=== PATIENT | female | born 1930 | race Caucasian/White ===

== ENCOUNTER 2017-10-09 11:02 | Inpatient (IN) | payer MEDICARE, BC ==
[~2017-10-09] VITALS: Ht 152.4 cm; Wt 53.1 kg
[~2017-10-09 11:02] MED LIST: ACET-2154 PO; VALS80TA2 PO
[2017-10-09] MEDS ORDERED: IV NORMAL SALINE 1000 ML BAG IV ONE (11:15)
[2017-10-09 11:28] LABS: BASOPHILS % (AUTO) 0.3 % (0.0-2.0); EOSINOPHILS % (AUTO) 0.6 % (0.0-7.0); HEMATOCRIT 39.1 % (37-47); HEMOGLOBIN 12.5 G/DL (12.0-16.0); LYMPHOCYTES # (AUTO) 1.2 K/UL (0.8-4.8); LYMPHOCYTES % (AUTO) 27.6 % (20.5-51.5); MEAN CORPUSCULAR HEMOGLOBIN 28.5 UUG (27.0-31.0); MEAN CORPUSCULAR HGB CONC 32 g/dL (32.0-37.0); MEAN CORPUSCULAR VOLUME 89.3 FL (81.0-99.0); MONOCYTES # (AUTO) 0.3 K/UL (0.1-1.30); MONOCYTES % (AUTO) 7.7 % (0.0-11.0); NEUTROPHILS # (AUTO) 2.9 K/UL (1.8-8.9); NEUTROPHILS % (AUTO) 63.8 % (38.5-71.5); PLATELET COUNT (AUTO) 244 K/UL (150-450); RED BLOOD CELL COUNT(AUTO) 4.38 MIL/UL (4.2-5.4); WHITE BLOOD COUNT (AUTO) 4.4 K/UL (4.0-11.2)
--- NOTE | 2017-10-09 11:37 | NUR ---
PT IS IN ROOM #2B. DR LEHMAN EVALUATED THE PT.
[2017-10-09 11:38] LABS: CARBON DIOXIDE 29 mmol/L (21-32); CHLORIDE 97 mmol/L (98-107); CREATININE 1.2 mg/dL (0.6-1.3); GLUCOSE 133 mg/dL (74-106); POTASSIUM 4.1 mmol/L (3.5-5.1); UREA NITROGEN, BLOOD 22 mg/dL (7-18)
[2017-10-09 11:55] LABS: ALANINE AMINOTRANSFERASE 21 U/L (14-59); ALKALINE PHOSPHATASE 77 U/L (50-136); ASPARTATE AMINOTRANSFERASE 28 U/L (15-37); BILIRUBIN,DIRECT 0.2 mg/dL (0.0-0.2); BILIRUBIN,TOTAL 0.6 mg/dL (0.2-1.0); TOTAL PROTEIN, SERUM 6.7 g/dL (6.4-8.2)
--- NOTE | 2017-10-09 11:59 | NUR ---
PT UNABLE TO ACCURATELY REMEMBER MEDS AND DOSAGES AT THE PRESENT TIME.
[2017-10-09] MEDS ORDERED: ONDANSETRON 4 MG/2 ML VIAL IV ONE ×2 (12:45→15:15)
[2017-10-09] MEDS ORDERED: MORPHINE SULFATE 2 MG/1 ML DISP.SYRIN IV ONE (12:45)
[2017-10-09] MEDS ORDERED: ONDANSETRON 4 MG/2 ML VIAL ONE ×2 (13:29→15:48)
[2017-10-09] MEDS ORDERED: MORPHINE SULFATE 4 MG/1 ML DISP.SYRIN ONE (13:30)
[2017-10-09] MEDS ORDERED: MORPHINE SULFATE 4 MG/1 ML DISP.SYRIN IV ONE (14:15)
[2017-10-09] MEDS ORDERED: MORPHINE SULFATE 10 MG/1 ML DISP.SYRIN ONE (15:06)
[2017-10-09 15:26] LABS: *BILIRUBIN,URIN NEGATIVE (NEGATIVE); *BLOOD, URINE 1+ (NEGATIVE); *CLARITY,URINE CLOUDY (CLEAR); *COLOR,URINE YELLOW (YELLOW); *KETONES,URINE NEGATIVE (NEGATIVE); *PROTEIN,URINE NEGATIVE (NEGATIVE); *UROBILINOGEN,URINE 0.2 E.U./dl (NORMAL); LEUKOCYTE ESTERASE ,URINE 2+ (NEGATIVE); NITRITE, URINE POSITIVE (NEGATIVE); UGLUCOSE NEGATIVE (NEGATIVE)
--- NOTE | 2017-10-09 15:40 | NUR ---
dr. ding at bedside.
[2017-10-09 15:49] LABS: BACTERIA,URINE MANY /HPF (NONE SEEN); SQUAMOUS EPITHELIAL CELL,UR FEW /HPF (NONE SEEN); URINE AMORPHOUS PHOSPHATES MODERATE /HPF
--- NOTE | 2017-10-09 16:30 | NUR ---
PT WAS EVALUATED BY DR LEHMAN. REPORT WAS GIVEN TO LOG FEEDER. PT WAS TRANSFERED TO TELEMETRY ROOM.
[2017-10-09] MEDS ORDERED: IV NS 1000 ML 1,000 ML IV PRN (16:33)
[2017-10-09] MEDS ORDERED: ONDANSETRON 4 MG/2 ML VIAL IV PRN (16:45)
[2017-10-09] MEDS ORDERED: HYDROCODONE/APAP 5-325MG TABLET PO PRN (16:45)
[2017-10-09] MEDS ORDERED: ACETAMINOPHEN 325 MG TABLET PO PRN (16:45)
[2017-10-09] MEDS ORDERED: MAGNESIUM HYDROXIDE 30 ML LIQUID UDC PO PRN (16:45)
[2017-10-09] MEDS ORDERED: ZOLPIDEM 5 MG TABLET PO PRN (16:45)
--- NOTE | 2017-10-09 17:45 | NUR ---
RECEIVED FOR ADMISSION 87 YEARS OLD FEMALE FROM ED WITH DX OF SYNCOPE PLACED INTO BED FIXED AND MADE COMFORTABLE PATIENT IS ALERT AND OROIENTED DENIES PAIN OR DISCOMFORTS AT THIS TIME SHE IS ON ROOM AIR WITH NO SHORTNESS OF BREATH AT THIS TIME.DR CENTENO AWARE THAT THE PATIENT IS HERE AWAITING FOR ORDERS
[2017-10-09] MEDS: CEFTRIAXONE 1 G in IV DEXTROSE 5% 50 ML IV SCH (17:49)
[2017-10-09 17:58] VITALS: BP 154/83
--- NOTE | 2017-10-09 18:12 | NUR ---
SITTING UP IN BED EATING DINNER INCONTINENT CARE GIVEN MADE COMFORTABLE AND WILL OBSERVE
--- NOTE | 2017-10-09 19:30 | NUR ---
RECEIVED PT IN BED, AWAKE, DTR AT BEDSIDE. DENIES PAIN AT THIS TIME. IN NO ACUTE SIGNS OF DISTRESS. SAFETY MEASURES RENDERED.
[2017-10-09 20:00] VITALS: BP 139/67
[2017-10-09] MEDS: Z GUARD REMEDY PASTE 57 GM TUBE TOP SCH (20:16)
[2017-10-10] VITALS: BP 104/55
[2017-10-10 04:00] VITALS: BP 155/62
--- NOTE | 2017-10-10 07:00 | NUR ---
SLEPT INTERMITTENTLY. IN NO ACUTE SIGNS OF DISTRESS. SAFETY MEASURES RENDERED.
[2017-10-10 07:20] LABS: ALANINE AMINOTRANSFERASE 17 U/L (14-59); ALKALINE PHOSPHATASE 55 U/L (50-136); ASPARTATE AMINOTRANSFERASE 22 U/L (15-37); BILIRUBIN,TOTAL 0.7 mg/dL (0.2-1.0); CARBON DIOXIDE 29 mmol/L (21-32); CHLORIDE 99 mmol/L (98-107); CHOLESTEROL 112 mg/dL (<200); CREATININE 1.1 mg/dL (0.6-1.3); GLUCOSE 98 mg/dL (74-106); HDL CHOLESTEROL 89 mg/dL (40-60); MAGNESIUM 1.5 mg/dL (1.8-2.4); PHOSPHOROUS 2.8 mg/dL (2.5-4.9); TRIGLYCERIDES 17 MG/DL (30-150); UREA NITROGEN, BLOOD 20 mg/dL (7-18)
--- NOTE | 2017-10-10 07:30 | NUR ---
PATIENT IS COMFORTABLE IN BED AWAKE ALERT AND ORIENTED JODY SIMPLE NEEDS KNOWN BUT REQUIRES MAX ASSIST FOR ALL ADL.PATIENT IS ON ROOM AIR WITH NO SHORTNESS OF BREATH AT THIS TIME.REMAIN ON IV ANTIBIOTICS ORDERED WITH NO ADVERSE OR ALLERGIC REACTIONS AT THIS TIME TURNED AND REPOSITIONED AND HEELS FLOATED MADE COMFORTABLE AND WILL CONTINUE TO OBSERVE.
[2017-10-10 07:34] LABS: EOSINOPHILS % (AUTO) 0.1 % (0.0-7.0); LYMPHOCYTES # (AUTO) 0.9 K/UL (0.8-4.8); LYMPHOCYTES % (AUTO) 10.4 % (20.5-51.5); MEAN CORPUSCULAR HEMOGLOBIN 30.3 UUG (27.0-31.0); MEAN CORPUSCULAR HGB CONC 35 g/dL (32.0-37.0); MEAN CORPUSCULAR VOLUME 87.8 FL (81.0-99.0); MONOCYTES # (AUTO) 0.4 K/UL (0.1-1.30); MONOCYTES % (AUTO) 4.5 % (0.0-11.0); NEUTROPHILS # (AUTO) 7.4 K/UL (1.8-8.9)
[2017-10-10 07:35] LABS: HEMATOCRIT 30.4 % (37-47); HEMOGLOBIN 10.5 G/DL (12.0-16.0); PLATELET COUNT (AUTO) 171 K/UL (150-450); RED BLOOD CELL COUNT(AUTO) 3.46 MIL/UL (4.2-5.4); WHITE BLOOD COUNT (AUTO) 8.7 K/UL (4.0-11.2)
[2017-10-10] MEDS: Z GUARD REMEDY PASTE 57 GM TUBE TOP SCH ×2 (08:19→21:00)
[2017-10-10] MEDS: VALSARTAN 80 MG TABLET PO SCH (08:20)
[2017-10-10] MEDS ORDERED: MAGNESIUM SULFATE/D5W 100 ML IV SCH (09:45)
--- NOTE | 2017-10-10 09:54 | NUR ---
PATIENT SEEN AND EXAMINED BY SHANNAN DAVIS KIDNEY TRIMMER WITH NEW ORDERS AND NOTED
[2017-10-10 10:09] LABS: IRON, SERUM 25 ug/dL (50-175)
[2017-10-10] MEDS: IV NS 1000 ML 1,000 ML IV PRN (10:27)
[2017-10-10 10:47] LABS: BAND % (MANUAL) 12 % (0-10); LYMPHOCYTES % (MANUAL) 12 % (20-40); MONOCYTES % (MANUAL) 4 % (2-10); NEUTROPHILS % (MANUAL) 62 % (42-75)
[2017-10-10 11:00] VITALS: BP_SYST 120; BP_SYST 122; BP_SYST 127; BP_DIAS 63
[2017-10-10 11:11] VITALS: BP 120/63
--- NOTE | 2017-10-10 12:43 | NUR ---
PATIENT SEEN AND EXAMINED BY DR KONG NEUROLOGIST WITH NEW ORDERS AND NOTED
--- NOTE | 2017-10-10 14:19 | NUR ---
RADIOLOGY DEPARTMENT HERE TO DO THE CT OF THE HEAD ORDERED BUT PATIENT IS UNABLE TO TOLERATE FOR HER HEAD TO BE PLACED DOWN FOR THE TEST TO BE DONE WILL INFORM THE DOCTOR.
--- NOTE | 2017-10-10 14:25 | NUR ---
CALLED DR DOUGLAS OFFICE SPOKE WITH ISSA AND INFORMED HER THAT THE CT HEAD WAS NOT DONE DUE TO THE FACT THAT PATIENT WAS UNABLE TO LAY FLAT AND SHE STATED WILL RELAY THE MESSAGE TO THE DOCTOR.
[2017-10-10 15:05] VITALS: BP 140/78
[2017-10-10] MEDS: CEFTRIAXONE 1 G in IV DEXTROSE 5% 50 ML IV SCH (17:10)
--- NOTE | 2017-10-10 18:00 | NUR ---
REMAIN ON IV ANTIBIOTICS ORDERED WITH NO ADVERSE OR ALLERGIC REACTIONS AT THIS TIME PATIENT IS RESTING WITH NO C/O AT THIS TIME
[2017-10-10 20:00] VITALS: BP 156/69
[2017-10-10] MEDS: FERROUS SULFATE 325 MG TABEC PO SCH (20:50)
--- NOTE | 2017-10-10 22:00 | NUR ---
PATIENT COMFORTABLE IN BED. NO COMPLAINT NOT IN DISTRESS. VITAL SIGNS ARE STABLE. INCONTINENT CARE DONE. CALL LIGHT WITHIN REACH.
[2017-10-11 06:18] VITALS: BP 152/76
--- NOTE | 2017-10-11 06:46 | NUR ---
patient slept good thru the night. no compliant of dizziness. SpO2 of 86% not in respiratory distress. started NC 2L SpO2 went back up to 92%. Encourage deep breathing. otherwise patient is comfortable. call light within reach.
[2017-10-11 07:28] LABS: BASOPHILS % (AUTO) 0.2 % (0.0-2.0); EOSINOPHILS % (AUTO) 0.1 % (0.0-7.0); HEMATOCRIT 29.8 % (31.2-41.9); HEMOGLOBIN 10.5 g/dL (10.9-14.3); LYMPHOCYTES # (AUTO) 0.9 K/uL (20.0-40.0); LYMPHOCYTES % (AUTO) 12.5 % (20.5-51.5); MEAN CORPUSCULAR HEMOGLOBIN 30.9 uug (24.7-32.8); MEAN CORPUSCULAR HGB CONC 35 g/dL (32.3-35.6); MEAN CORPUSCULAR VOLUME 88.1 fL (75.5-95.3); MONOCYTES # (AUTO) 0.5 K/uL (2.0-10.0); MONOCYTES % (AUTO) 6.6 % (0.0-11.0); NEUTROPHILS # (AUTO) 5.6 K/uL (1.8-8.9); NEUTROPHILS % (AUTO) 80.6 % (38.5-71.5); PLATELET COUNT (AUTO) 148 K/uL (179-408); RED BLOOD CELL COUNT(AUTO) 3.39 MIL/uL (3.63-4.92)
--- NOTE | 2017-10-11 07:45 | NUR ---
PATIENT IS AWAKE ALERT AND ORIENTED DENIES PAIN OR DISCOMFORTS AT THIS TIME.SHE IS CURRENTLY ON O2 BY NASAL CANULLA WITH NO SHORTNESS OF BREATH.WILL REMOVE AND RECHECK TO ESTABLISH NEED FOR SUPPLEMENTAL OXYGEN.REMAIN ON IVF ORDERED WITH NO S/S OF INFILTERATION ON SITE INCONTINENT CARE MADE COMFORTABLE AND WILL CONTINUE TO OBSERVE.
[2017-10-11 07:48] LABS: ALANINE AMINOTRANSFERASE 14 U/L (14-59); ALKALINE PHOSPHATASE 59 U/L (50-136); ASPARTATE AMINOTRANSFERASE 18 U/L (15-37); BILIRUBIN,TOTAL 0.5 mg/dL (0.2-1.0); CARBON DIOXIDE 26 mmol/L (21-32); CHLORIDE 100 mmol/L (98-107); CREATININE 0.9 mg/dL (0.6-1.3); GLUCOSE 91 mg/dL (74-106); MAGNESIUM 1.6 mg/dL (1.8-2.4); PHOSPHOROUS 2.2 mg/dL (2.5-4.9); POTASSIUM 3.8 mmol/L (3.5-5.1); TOTAL PROTEIN, SERUM 5.1 g/dL (6.4-8.2)
[2017-10-11] MEDS: FERROUS SULFATE 325 MG TABEC PO SCH ×2 (08:37→20:24)
[2017-10-11] MEDS: VALSARTAN 80 MG TABLET PO SCH (08:37)
[2017-10-11] MEDS: Z GUARD REMEDY PASTE 57 GM TUBE TOP SCH ×2 (08:38→20:47)
[2017-10-11 09:18] LABS: UREA NITROGEN, BLOOD 14 mg/dL (7-18)
[2017-10-11] MEDS: IV NS 1000 ML 1,000 ML IV PRN (09:39)
[2017-10-11] MEDS ORDERED: NEUTRA PHOS PACKET PO ONE (10:15)
[2017-10-11] MEDS ORDERED: MAGNESIUM SULFATE/D5W 100 ML IV SCH (10:15)
--- NOTE | 2017-10-11 10:30 | NUR ---
MAG LEVEL IS 1.6 AND PHOS IS 2.2 WITH NEW ORDERS AND NOTED.
--- NOTE | 2017-10-11 12:24 | NUR ---
BLOOD PRESSURE AT THIS TIME IS 171/89 SHANNAN BORREGO HERE AND AWARE WITH NEW ORDERS AND NOTED
[2017-10-11] MEDS: CLONIDINE HCL 0.1 MG TABLET PO PRN (12:41)
[2017-10-11 12:50] VITALS: BP 171/89
[2017-10-11] MEDS ORDERED: GUAIFENESIN/DEXTROMETHORPHAN 5 ML UDC PO PRN (15:15)
[2017-10-11 16:10] VITALS: BP 152/78
[2017-10-11] MEDS: CEFTRIAXONE 1 G in IV DEXTROSE 5% 50 ML IV SCH (17:38)
--- NOTE | 2017-10-11 17:57 | NUR ---
CURRENT BLOOD PRESSURE IS 152/78 DENIES DISCOMFRTS CHEST XRAY AND EEG WAS COMPLETED ORDERED AWATING FOR RESULTS
[2017-10-11] MEDS: Z GUARD REMEDY PASTE 57 GM TUBE TOP PRN (20:25)
[2017-10-11 20:42] VITALS: BP 149/81
--- NOTE | 2017-10-11 21:00 | NUR ---
PATIENT COMFORTABLE IN BED. ALERT AND ORIENTED X3-4 FORGETFUL AT TIMES. DRY COUGH GIVEN PRN ROBITUSSIN. VITAL SIGNS ARE STABLE. INCONTINENT CARE DONE. CALL LIGHT WITHIN REACH.
[2017-10-12 04:00] VITALS: BP 129/69
--- NOTE | 2017-10-12 06:16 | NUR ---
SLEPT GOOD THRU THE NIGHT. SPO2 87% NOT IN DISTRESS, PLACED ON NC2L O2 SATS PICKED UP TO 93%. OTHERWISE NO APPARENT PROBLEM NOTED. VSS. CALL LIGHT WITHIN REACH.
[2017-10-12 06:45] LABS: BASOPHILS % (AUTO) 0.1 % (0.0-2.0); EOSINOPHILS % (AUTO) 0.5 % (0.0-7.0); HEMATOCRIT 31.9 % (31.2-41.9); LYMPHOCYTES # (AUTO) 0.9 K/uL (20.0-40.0); MEAN CORPUSCULAR HEMOGLOBIN 30.3 uug (24.7-32.8); MEAN CORPUSCULAR HGB CONC 35 g/dL (32.3-35.6); MEAN CORPUSCULAR VOLUME 87.5 fL (75.5-95.3); MONOCYTES # (AUTO) 0.5 K/uL (2.0-10.0); MONOCYTES % (AUTO) 7.7 % (0.0-11.0); NEUTROPHILS # (AUTO) 4.6 K/uL (1.8-8.9); NEUTROPHILS % (AUTO) 76.7 % (38.5-71.5); PLATELET COUNT (AUTO) 159 K/uL (179-408); RED BLOOD CELL COUNT(AUTO) 3.64 MIL/uL (3.63-4.92)
[2017-10-12 06:50] LABS: ALANINE AMINOTRANSFERASE 13 U/L (14-59); ALKALINE PHOSPHATASE 58 U/L (50-136); ASPARTATE AMINOTRANSFERASE 19 U/L (15-37); BILIRUBIN,TOTAL 0.5 mg/dL (0.2-1.0); CARBON DIOXIDE 25 mmol/L (21-32); CHLORIDE 99 mmol/L (98-107); CREATININE 0.8 mg/dL (0.6-1.3); GLUCOSE 96 mg/dL (74-106); MAGNESIUM 1.6 mg/dL (1.8-2.4); PHOSPHOROUS 2.4 mg/dL (2.5-4.9); POTASSIUM 3.3 mmol/L (3.5-5.1); TOTAL PROTEIN, SERUM 5.4 g/dL (6.4-8.2); UREA NITROGEN, BLOOD 12 mg/dL (7-18)
--- NOTE | 2017-10-12 08:00 | NUR ---
RECEIVED PATIENT IN BED AWAKE ALERT AND ORIENTED BUT FORGETFUL STILL HAS EPISODES OF COUGH OFFERED HER SOME COUGH MEDICINES BUT SHE STATED THAT SHE DID NOT LIKE HOW IT MADE HER FEEL YESTERDAY WHEN SHE TOOK IT BUT WAS UNABLE TO ELABORATE MORE.
[2017-10-12] MEDS: VALSARTAN 80 MG TABLET PO SCH (08:23)
[2017-10-12] MEDS: FERROUS SULFATE 325 MG TABEC PO SCH ×2 (08:23→20:46)
[2017-10-12] MEDS: Z GUARD REMEDY PASTE 57 GM TUBE TOP SCH ×2 (08:25→22:29)
[2017-10-12] MEDS ORDERED: CEPHALEXIN MONOHYDRATE 500 MG CAPSULE PO SCH (09:00)
--- NOTE | 2017-10-12 09:52 | NUR ---
PATIENT SEEN AND EXAMINED BY DR MICHAEL WITH NEW ORDERS POTASSIUM IS 3.3 MG IS 1.6 AND PHOS IS 2.4 PATIENT AWARE THAT THESE LEVELS ARE LOW AND THAT SHE WILL NEED REPLACEMENTS AND SHE EXPRESSED UNDERSTANDING SHANNAN ACCOUNTING MACHINE OPERATOR AWARE THAT PATIENTS DAUGHTER TATY WANTS TO BE CALLED FOR AN UPDATE ON HER MOTHERS CONDITION.
[2017-10-12] MEDS ORDERED: MAGNESIUM SULFATE/D5W 100 ML IV SCH (10:00)
[2017-10-12] MEDS ORDERED: IPRATROPIUM BROMIDE 0.5 MG/2.5 ML NEBU NEB PRN (10:15)
[2017-10-12] MEDS ORDERED: ALBUTEROL SULFATE 2.5 MG/3 ML NEBU NEB PRN (10:15)
[2017-10-12] MEDS ORDERED: ALBUTEROL SULFATE 2.5 MG/ 0.5 ML NEBU NEB PRN (10:30)
--- NOTE | 2017-10-12 11:00 | NUR ---
SHANNAN MEDICAL RECORDS ANALYST HERE AND SEEN PATIENT WITH NEW ORDERS PATIENT IS STARTED ON IV ANTIBIOTICS PLUS THE ROCEPHINE LATER TODAY AND SHE EXPRESSED UNDERSTANDING.
[2017-10-12 11:20] VITALS: BP 144/70
[2017-10-12] MEDS: AZITHROMYCIN IV 500 MG in IV DEXTROSE 5% 250 ML IV SCH (11:39)
[2017-10-12] MEDS: POTASSIUM PHOSPHATE MM 7.5 MMOL in IV DEXTROSE 5% 100 ML IV SCH ×2 (13:05→18:52)
[2017-10-12] MEDS ORDERED: LORAZEPAM 2 MG/1 ML VIAL IV ONE ×2 (13:15→17:00)
[2017-10-12] MEDS ORDERED: ALBUTEROL SULFATE 2.5 MG/3 ML NEBU NEB SCH (13:30)
[2017-10-12] MEDS: ALBUTEROL SULFATE 2.5 MG/ 0.5 ML NEBU NEB SCH ×2 (13:47→19:30)
[2017-10-12] MEDS: IPRATROPIUM BROMIDE 0.5 MG/2.5 ML NEBU NEB SCH ×2 (13:47→19:30)
[2017-10-12] MEDS: FAMOTIDINE 20 MG TABLET PO SCH (14:30)
[2017-10-12 15:35] VITALS: BP 151/68
--- NOTE | 2017-10-12 15:57 | NUR ---
PATIENT IS FOR CT OF THE HEAD TODAY SPOKE WITH RADIOLOGY DEPARTMENT THAT PATIENT IS CURRENTLY RECEIVING POTASSIUM PHOSPHATE AND SO I WILL CALL THEM AFTER THE INFUSSION COMPLETES AND THEY CAN THEN GIVE ME THE ETA SO THAT I COULD GIVE THE ATIVAN ORDERED.
--- NOTE | 2017-10-12 17:12 | NUR ---
PATIENT PICKED UP BY BED FOR CT SCAN ORDERED SHE WAS PREMEDICATED WITH ATIVAN ORDERED.
--- NOTE | 2017-10-12 17:49 | NUR ---
PATIENT RETURNED FROM CT AWAKE LAERT TO SELF KNOWS MY NAME BUT IS DISORIENTED 1:1 REALITY ORIENTATION IS IN PROGRESS TO REDUCE CONFUSSION.MAHNAZ IVPB ATB STARTED AT THIS TIME WILL INFUSE THE SECOND BAG OF POTASSIUM PHOSPHATE AFTER THE ANTIBIOTICS PATIENTS DAUGHTER TATY IS AT THE BEDSIDE VISITING HER AT THIS TIME WILL CONTINUE TO OBSERVE.
[2017-10-12] MEDS ORDERED: CEFTRIAXONE 1 G in IV DEXTROSE 5% 50 ML IV SCH (18:00)
--- NOTE | 2017-10-12 18:29 | NUR ---
REFUSING TO EAT DINNER AT THIS TIME STILL VERY MIXED UP BED ALARM ACTIVATED AND WILL CONTINUE TO OBSERVE CLOSELY.
[2017-10-12 20:00] VITALS: BP 195/105
[2017-10-12] MEDS: CLONIDINE HCL 0.1 MG TABLET PO PRN (20:46)
[2017-10-12] MEDS: Z GUARD REMEDY PASTE 57 GM TUBE TOP PRN (20:50)
[2017-10-13] MEDS: IPRATROPIUM BROMIDE 0.5 MG/2.5 ML NEBU NEB SCH ×4 (01:34→19:10)
[2017-10-13] MEDS: ALBUTEROL SULFATE 2.5 MG/ 0.5 ML NEBU NEB SCH ×4 (01:34→19:10)
[2017-10-13 06:45] LABS: ALANINE AMINOTRANSFERASE 18 U/L (14-59); ALKALINE PHOSPHATASE 64 U/L (50-136); ASPARTATE AMINOTRANSFERASE 19 U/L (15-37); BILIRUBIN,TOTAL 0.6 mg/dL (0.2-1.0); CARBON DIOXIDE 27 mmol/L (21-32); CHLORIDE 96 mmol/L (98-107); CREATININE 0.8 mg/dL (0.6-1.3); GLUCOSE 99 mg/dL (74-106); MAGNESIUM 1.7 mg/dL (1.8-2.4); PHOSPHOROUS 3.2 mg/dL (2.5-4.9); POTASSIUM 3.5 mmol/L (3.5-5.1); TOTAL PROTEIN, SERUM 5.9 g/dL (6.4-8.2); UREA NITROGEN, BLOOD 10 mg/dL (7-18)
--- NOTE | 2017-10-13 07:15 | NUR ---
Received report from manufacturing supervisor 2nd shift nurse. Patient in bed awake, no evidence of distress noted, bed in low position, side rails up x2.
[2017-10-13 07:37] LABS: LYMPHOCYTES # (AUTO) 0.9 K/uL (20.0-40.0); MONOCYTES # (AUTO) 0.6 K/uL (2.0-10.0); MONOCYTES % (AUTO) 12.8 % (0.0-11.0); WHITE BLOOD COUNT (AUTO) 4.9 K/uL (3.8-11.8)
[2017-10-13 07:52] LABS: BASOPHILS % (AUTO) 0.3 % (0.0-2.0); EOSINOPHILS % (AUTO) 0.5 % (0.0-7.0); HEMATOCRIT 34.1 % (31.2-41.9); HEMOGLOBIN 11.8 g/dL (10.9-14.3); LYMPHOCYTES % (AUTO) 17.6 % (20.5-51.5); MEAN CORPUSCULAR HEMOGLOBIN 30.3 uug (24.7-32.8); MEAN CORPUSCULAR HGB CONC 35 g/dL (32.3-35.6); MEAN CORPUSCULAR VOLUME 87.5 fL (75.5-95.3); NEUTROPHILS # (AUTO) 3.4 K/uL (1.8-8.9); NEUTROPHILS % (AUTO) 68.8 % (38.5-71.5)
[2017-10-13 07:54] LABS: PLATELET COUNT (AUTO) 202 K/uL (179-408)
[2017-10-13] MEDS: Z GUARD REMEDY PASTE 57 GM TUBE TOP SCH ×2 (09:53→20:46)
[2017-10-13] MEDS: FAMOTIDINE 20 MG TABLET PO SCH (09:53)
[2017-10-13] MEDS: VALSARTAN 80 MG TABLET PO SCH (09:53)
[2017-10-13] MEDS: FERROUS SULFATE 325 MG TABEC PO SCH ×2 (09:53→20:44)
[2017-10-13] MEDS ORDERED: FUROSEMIDE 20 MG/2 ML VIAL IV SCH (10:15)
[2017-10-13] MEDS ORDERED: MAGNESIUM SULFATE/D5W 100 ML IV SCH (10:15)
[2017-10-13 11:14] VITALS: BP 147/73
[2017-10-13] MEDS: AZITHROMYCIN IV 500 MG in IV DEXTROSE 5% 250 ML IV SCH (11:46)
[2017-10-13 14:58] VITALS: BP 140/65
--- NOTE | 2017-10-13 15:45 | NUR ---
Patient's daughter was spoken to as patient appeared to be confused about results, and alarmed daughter.
[2017-10-13] MEDS: ASPIRIN EC 81 MG TABLET.DR PO SCH (17:12)
--- NOTE | 2017-10-13 18:14 | NUR ---
Patient in bed, awake, no evidence of distress noted at this time. Bed in low position, side rails up x2. Bed alarm on.
[2017-10-13 20:00] VITALS: BP 163/89
[2017-10-13] MEDS: LACTOBACILLUS RHAMNOSUS GG 1 EACH CAPSULE PO SCH (20:44)
[2017-10-13] MEDS: Z GUARD REMEDY PASTE 57 GM TUBE TOP PRN (20:45)
[2017-10-13] MEDS: FUROSEMIDE 20 MG/2 ML VIAL IV SCH (20:45)
[2017-10-13] MEDS: CEPHALEXIN MONOHYDRATE 500 MG CAPSULE PO SCH (21:01)
[2017-10-14] MEDS: ALBUTEROL SULFATE 2.5 MG/ 0.5 ML NEBU NEB SCH ×3 (00:51→13:30)
[2017-10-14] MEDS: IPRATROPIUM BROMIDE 0.5 MG/2.5 ML NEBU NEB SCH ×3 (00:51→13:30)
[2017-10-14 05:48] VITALS: BP 150/81
[2017-10-14] MEDS: CEPHALEXIN MONOHYDRATE 500 MG CAPSULE PO SCH ×2 (05:57→14:14)
--- NOTE | 2017-10-14 06:30 | NUR ---
PT SLEPT WELL, IN NO ACUTE DISTRESS, NO C/O OF HEADACHE, NAUSEA, CHEST PAIN, SOB. ANTIBIOTICS ADMINISTERED ORDERED, NO ADVERSE REACTION NOTED. PATIENT KEPT CLEAN/DRY. BED ALARM ON, CALL LIGHT WITHIN REACH, WILL CONTINUE TO MONITOR.
[2017-10-14 07:01] LABS: BASOPHILS % (AUTO) 0.4 % (0.0-2.0); EOSINOPHILS % (AUTO) 0.8 % (0.0-7.0); HEMATOCRIT 34.2 % (31.2-41.9); HEMOGLOBIN 11.6 g/dL (10.9-14.3); LYMPHOCYTES # (AUTO) 0.9 K/uL (20.0-40.0); LYMPHOCYTES % (AUTO) 15.2 % (20.5-51.5); MEAN CORPUSCULAR HEMOGLOBIN 29.9 uug (24.7-32.8); MEAN CORPUSCULAR HGB CONC 34 g/dL (32.3-35.6); MONOCYTES # (AUTO) 0.8 K/uL (2.0-10.0); NEUTROPHILS # (AUTO) 4.1 K/uL (1.8-8.9); NEUTROPHILS % (AUTO) 70.6 % (38.5-71.5); PLATELET COUNT (AUTO) 212 K/uL (179-408); RED BLOOD CELL COUNT(AUTO) 3.89 MIL/uL (3.63-4.92); WHITE BLOOD COUNT (AUTO) 5.9 K/uL (3.8-11.8)
--- NOTE | 2017-10-14 07:10 | NUR ---
RECEIVED REPORT FROM BRAKES INSPECTOR NURSE. PATIENT IN BED ASLEEP, NO EVIDENCE OF DISTRESS NOTED. BED IN LOW POSITION, SIDE RAILS UP X2.
[2017-10-14 07:41] LABS: ALANINE AMINOTRANSFERASE 16 U/L (14-59); ALKALINE PHOSPHATASE 58 U/L (50-136); ASPARTATE AMINOTRANSFERASE 18 U/L (15-37); BILIRUBIN,TOTAL 0.5 mg/dL (0.2-1.0); CARBON DIOXIDE 27 mmol/L (21-32); CHLORIDE 96 mmol/L (98-107); CREATININE 0.8 mg/dL (0.6-1.3); GLUCOSE 92 mg/dL (74-106); MAGNESIUM 1.6 mg/dL (1.8-2.4); PHOSPHOROUS 3.4 mg/dL (2.5-4.9); POTASSIUM 3.2 mmol/L (3.5-5.1); TOTAL PROTEIN, SERUM 5.6 g/dL (6.4-8.2); UREA NITROGEN, BLOOD 12 mg/dL (7-18)
[2017-10-14] MEDS ORDERED: VALSARTAN 80 MG TABLET PO SCH (09:00)
[2017-10-14] MEDS: FUROSEMIDE 20 MG/2 ML VIAL IV SCH (09:11)
[2017-10-14] MEDS: FERROUS SULFATE 325 MG TABEC PO SCH (09:11)
[2017-10-14] MEDS: FAMOTIDINE 20 MG TABLET PO SCH (09:12)
[2017-10-14] MEDS: Z GUARD REMEDY PASTE 57 GM TUBE TOP SCH (09:12)
[2017-10-14] MEDS: ASPIRIN EC 81 MG TABLET.DR PO SCH (09:12)
[2017-10-14] MEDS: LACTOBACILLUS RHAMNOSUS GG 1 EACH CAPSULE PO SCH (09:12)
[2017-10-14 10:57] VITALS: BP 135/70
[2017-10-14] MEDS ORDERED: MAGNESIUM SULFATE/D5W 100 ML IV SCH (11:00)
[2017-10-14] MEDS ORDERED: AZITHROMYCIN 250 MG TABLET PO SCH (11:00)
[2017-10-14] MEDS ORDERED: POTASSIUM CHLORIDE 20 MEQ TAB.PRT.SR PO ONE (11:00)
--- NOTE | 2017-10-14 12:00 | NUR ---
EVALUATED LEFT ARM INFUSION, IT WAS FOUND LEAKING. IV REPLACED TO RIGHT ARM. PATIENT TOLERATED WELL.
[2017-10-14 12:20] LABS: *OCCULT BLOOD STOOL NEGATIVE (NEGATIVE)
[2017-10-14] MEDS ORDERED: ASPI-618 PO (13:38)
[2017-10-14] MEDS ORDERED: CLON0.1T14 PO (13:38)
[2017-10-14] MEDS ORDERED: ACET325T53 PO (13:38)
[2017-10-14] MEDS ORDERED: FERR325T28 PO (13:38)
[2017-10-14] MEDS ORDERED: HYDR-3326 PO (13:38)
[2017-10-14] MEDS ORDERED: MAGN400O6 PO (13:38)
[2017-10-14] MEDS ORDERED: LACT1CAP57 PO (13:38)
[2017-10-14] MEDS ORDERED: ZOLP5TAB8 PO (13:38)
[2017-10-14] MEDS ORDERED: FAMO20TA8 PO (13:38)
[2017-10-14] MEDS ORDERED: IPRA0.2S6 NEB ×2 (13:38)
[2017-10-14] MEDS ORDERED: CEPH500C2 PO (13:38)
[2017-10-14] MEDS ORDERED: FURO20TA4 PO (13:38)
[2017-10-14] MEDS ORDERED: GUAI5SYR PO (13:38)
[2017-10-14] MEDS ORDERED: MENT71OI TOP ×2 (13:38)
[2017-10-14] MEDS ORDERED: AZIT250T6 PO (13:38)
[2017-10-14] MEDS ORDERED: ALBU2.5V13 NEB ×2 (13:38)
[2017-10-14] MEDS ORDERED: VALS80TA2 PO (13:38)
--- NOTE | 2017-10-14 15:30 | NUR ---
PATIENT DISCHARGED TO ARU, ALL EDUCATION MATERIAL PROVIDED, AND MED LIST REVIEWED. CALLED DAUGHTER TO INFORM HER OF THE UPDATED ROOM LOCATION. VITALS STABLE, NO EVIDENCE OF DISTRESS NOTED.
[2017-10-14] MEDS ORDERED: FUROSEMIDE 20 MG TABLET PO SCH (17:00)
[2017-10-15 09:00] LABS: BASOPHILS % (AUTO) 0.2 % (0.0-2.0); EOSINOPHILS % (AUTO) 0.7 % (0.0-7.0); HEMOGLOBIN 12.9 g/dL (10.9-14.3); LYMPHOCYTES # (AUTO) 0.9 K/uL (20.0-40.0); LYMPHOCYTES % (AUTO) 12.4 % (20.5-51.5); MEAN CORPUSCULAR HEMOGLOBIN 29.9 uug (24.7-32.8); MEAN CORPUSCULAR HGB CONC 34 g/dL (32.3-35.6); MEAN CORPUSCULAR VOLUME 87.9 fL (75.5-95.3); MONOCYTES # (AUTO) 0.8 K/uL (2.0-10.0); MONOCYTES % (AUTO) 11.2 % (0.0-11.0); NEUTROPHILS # (AUTO) 5.2 K/uL (1.8-8.9); NEUTROPHILS % (AUTO) 75.5 % (38.5-71.5); RED BLOOD CELL COUNT(AUTO) 4.32 MIL/uL (3.63-4.92)
[2017-10-15 09:10] LABS: CARBON DIOXIDE 27 mmol/L (21-32); CHLORIDE 92 mmol/L (98-107); GLUCOSE 96 mg/dL (74-106); PHOSPHOROUS 3.4 mg/dL (2.5-4.9); POTASSIUM 4.2 mmol/L (3.5-5.1)
[2017-10-15 09:25] LABS: UREA NITROGEN, BLOOD 19 mg/dL (7-18)
[2017-10-15 09:37] LABS: PLATELET COUNT (AUTO) 271 K/uL (179-408)
== END 2017-10-14 15:30 | DRG 193 ==
LOC: ER 11:02 → TELE 16:07 → MED 10-10 16:46 → TELE1 10-14 16:04 → MED 10-14 16:04 → TELE1 10-14 16:14 → MED 10-16 14:59 → TELE-TD 10-16 15:04 → UNDODISIN 10-16 18:07
PROVIDERS: ADMIT Physical Medicine & Rehabilitation Pain Medicine; ATTEND Internal Medicine
DX: J18.9 Pneumonia, unspecified organism (principal); N17.0 Acute kidney failure with tubular necrosis; I50.33 Acute on chronic diastolic (congestive) heart failure; E44.0 Moderate protein-calorie malnutrition; J90 Pleural effusion, not elsewhere classified; D69.6 Thrombocytopenia, unspecified; E87.2 Acidosis; E83.39 Other disorders of phosphorus metabolism; E83.42 Hypomagnesemia; I48.91 Unspecified atrial fibrillation; E87.1 Hypo-osmolality and hyponatremia; N39.0 Urinary tract infection, site not specified; I11.0 Hypertensive heart disease with heart failure; I27.20 Pulmonary hypertension, unspecified; G90.8 Other disorders of autonomic nervous system; E83.51 Hypocalcemia; D50.9 Iron deficiency anemia, unspecified; D72.825 Bandemia; E11.9 Type 2 diabetes mellitus without complications; E86.0 Dehydration; I25.10 Atherosclerotic heart disease of native coronary artery without angina pectoris; M19.90 Unspecified osteoarthritis, unspecified site; Z85.038 Personal history of other malignant neoplasm of large intestine; Z90.49 Acquired absence of other specified parts of digestive tract; Z96.643 Presence of artificial hip joint, bilateral; E87.6 Hypokalemia; I34.0 Nonrheumatic mitral (valve) insufficiency; I36.1 Nonrheumatic tricuspid (valve) insufficiency; I35.1 Nonrheumatic aortic (valve) insufficiency; I37.1 Nonrheumatic pulmonary valve insufficiency; R60.0 Localized edema; Z68.22 Body mass index [BMI] 22.0-22.9, adult
CPT/HCPCS: 36415; 70030-TC; 70450; 71010; 71250; 83550; 83605; 83735; 84100; 85025; 85730; 87040; 87086; 93005; 93307; 94640; 94664; 97116; 97530; A4663; C1758; J0456; J0696; J1940; J2060; J2270; J2405; J3475; J3490; J3590; J7030; J7050; J7060; Q0144

== ENCOUNTER 2017-10-14 16:11 | Inpatient (IN) | payer MEDICARE, BC ==
[~2017-10-14] VITALS: Ht 142.2 cm; Wt 44.5 kg
[~2017-10-14 16:11] MED LIST changes: +ACET325T53 PO; +ALBU2.5V13 NEB; +ASPI-618 PO; +AZIT250T6 PO; +CEPH500C2 PO; +CLON0.1T14 PO; +FAMO20TA8 PO; +FERR325T28 PO; +FURO20TA4 PO; +GUAI5SYR PO; +HYDR-3326 PO; +IPRA0.2S6 NEB; +LACT1CAP57 PO; +MAGN400O6 PO; +MENT71OI TOP; +ZOLP5TAB8 PO
[2017-10-14] MEDS ORDERED: Z GUARD REMEDY PASTE 57 GM TUBE TOP PRN ×2 (17:00→21:45)
[2017-10-14 19:40] VITALS: BP 166/82
[2017-10-14] MEDS ORDERED: ZOLPIDEM 5 MG TABLET PO PRN (21:45)
[2017-10-14] MEDS ORDERED: IPRATROPIUM BROMIDE 0.5 MG/2.5 ML NEBU NEB PRN (21:45)
[2017-10-14] MEDS ORDERED: GUAIFENESIN/DEXTROMETHORPHAN 5 ML UDC PO PRN (21:45)
[2017-10-14] MEDS ORDERED: CLONIDINE HCL 0.1 MG TABLET PO PRN (21:45)
[2017-10-14] MEDS ORDERED: MAGNESIUM HYDROXIDE 30 ML LIQUID UDC PO PRN (21:45)
[2017-10-14] MEDS ORDERED: ALBUTEROL SULFATE 2.5 MG/ 0.5 ML NEBU NEB PRN (21:45)
[2017-10-14] MEDS ORDERED: AZITHROMYCIN 250 MG TABLET PO SCH (21:45)
[2017-10-14] MEDS ORDERED: CEPHALEXIN MONOHYDRATE 500 MG CAPSULE ONE (23:10)
[2017-10-14] MEDS ORDERED: ZOLPIDEM 5 MG TABLET ONE (23:12)
[2017-10-14] MEDS ORDERED: ACETAMINOPHEN 325 MG TABLET ONE (23:13)
[2017-10-14] MEDS: ACETAMINOPHEN 325 MG TABLET PO PRN (23:26)
[2017-10-14] MEDS: CEPHALEXIN MONOHYDRATE 500 MG CAPSULE PO SCH (23:27)
[2017-10-15] MEDS: ALBUTEROL SULFATE 2.5 MG/ 0.5 ML NEBU NEB SCH ×4 (01:22→19:02)
[2017-10-15] MEDS: IPRATROPIUM BROMIDE 0.5 MG/2.5 ML NEBU NEB SCH ×4 (01:22→19:02)
[2017-10-15] MEDS ORDERED: CEPHALEXIN MONOHYDRATE 500 MG CAPSULE ONE (06:40)
[2017-10-15] MEDS: CEPHALEXIN MONOHYDRATE 500 MG CAPSULE PO SCH ×3 (07:06→21:52)
[2017-10-15 08:12] VITALS: BP 141/75
[2017-10-15] MEDS: Z GUARD REMEDY PASTE 57 GM TUBE TOP SCH ×2 (09:00→22:07)
[2017-10-15] MEDS: ACETAMINOPHEN 325 MG TABLET PO PRN ×2 (09:04→18:35)
[2017-10-15] MEDS: ASPIRIN EC 81 MG TABLET.DR PO SCH (09:07)
[2017-10-15] MEDS: FERROUS SULFATE 325 MG TABEC PO SCH ×2 (09:08→21:52)
[2017-10-15] MEDS: FUROSEMIDE 20 MG TABLET PO SCH ×2 (09:08→17:05)
[2017-10-15] MEDS: VALSARTAN 80 MG TABLET PO SCH ×2 (09:08→21:52)
[2017-10-15] MEDS: FAMOTIDINE 20 MG TABLET PO SCH (09:08)
[2017-10-15] MEDS: LACTOBACILLUS RHAMNOSUS GG 1 EACH CAPSULE PO SCH ×2 (09:09→21:52)
[2017-10-15 19:45] VITALS: BP_SYST 125; BP_SYST 155; BP_DIAS 65; BP_DIAS 81
[2017-10-15] MEDS: AZITHROMYCIN 250 MG TABLET PO SCH (21:51)
[2017-10-16] MEDS: IPRATROPIUM BROMIDE 0.5 MG/2.5 ML NEBU NEB SCH ×4 (01:30→19:08)
[2017-10-16] MEDS: ALBUTEROL SULFATE 2.5 MG/ 0.5 ML NEBU NEB SCH ×4 (01:30→19:08)
[2017-10-16] MEDS: CEPHALEXIN MONOHYDRATE 500 MG CAPSULE PO SCH ×3 (06:59→21:20)
[2017-10-16 07:53] VITALS: BP 128/79
[2017-10-16 08:34] LABS: CARBON DIOXIDE 26 mmol/L (21-32); CHLORIDE 97 mmol/L (98-107); CREATININE 0.9 mg/dL (0.6-1.3); GLUCOSE 89 mg/dL (74-106); POTASSIUM 4.1 mmol/L (3.5-5.1); UREA NITROGEN, BLOOD 18 mg/dL (7-18)
[2017-10-16] MEDS: ASPIRIN EC 81 MG TABLET.DR PO SCH (09:41)
[2017-10-16] MEDS: LACTOBACILLUS RHAMNOSUS GG 1 EACH CAPSULE PO SCH ×2 (09:41→21:20)
[2017-10-16] MEDS: FUROSEMIDE 20 MG TABLET PO SCH ×2 (09:42→18:29)
[2017-10-16] MEDS: FERROUS SULFATE 325 MG TABEC PO SCH ×2 (09:53→21:20)
[2017-10-16] MEDS: FAMOTIDINE 20 MG TABLET PO SCH (09:54)
[2017-10-16] MEDS: VALSARTAN 80 MG TABLET PO SCH ×2 (09:55→21:19)
[2017-10-16] MEDS: Z GUARD REMEDY PASTE 57 GM TUBE TOP SCH ×2 (09:59→21:21)
[2017-10-16] MEDS: ACETAMINOPHEN 325 MG TABLET PO PRN (13:35)
[2017-10-16 20:00] VITALS: BP 141/82
[2017-10-16] MEDS: AZITHROMYCIN 250 MG TABLET PO SCH (21:20)
[2017-10-17] MEDS: IPRATROPIUM BROMIDE 0.5 MG/2.5 ML NEBU NEB SCH ×4 (01:05→19:17)
[2017-10-17] MEDS: ALBUTEROL SULFATE 2.5 MG/ 0.5 ML NEBU NEB SCH ×4 (01:05→19:17)
[2017-10-17] MEDS: CEPHALEXIN MONOHYDRATE 500 MG CAPSULE PO SCH ×2 (06:42→17:25)
[2017-10-17 07:49] VITALS: BP 133/65
[2017-10-17] MEDS: LACTOBACILLUS RHAMNOSUS GG 1 EACH CAPSULE PO SCH ×2 (08:45→20:45)
[2017-10-17] MEDS: ASPIRIN EC 81 MG TABLET.DR PO SCH (08:45)
[2017-10-17] MEDS: FUROSEMIDE 20 MG TABLET PO SCH ×2 (08:47→17:16)
[2017-10-17] MEDS: FERROUS SULFATE 325 MG TABEC PO SCH ×2 (08:50→20:46)
[2017-10-17] MEDS: FAMOTIDINE 20 MG TABLET PO SCH (08:51)
[2017-10-17] MEDS: VALSARTAN 80 MG TABLET PO SCH ×2 (08:52→20:45)
[2017-10-17] MEDS: Z GUARD REMEDY PASTE 57 GM TUBE TOP SCH ×2 (08:52→20:46)
[2017-10-17 20:17] VITALS: BP 148/83
[2017-10-17] MEDS: AZITHROMYCIN 250 MG TABLET PO SCH (20:44)
[2017-10-18] MEDS: ALBUTEROL SULFATE 2.5 MG/ 0.5 ML NEBU NEB SCH ×4 (01:30→20:10)
[2017-10-18] MEDS: IPRATROPIUM BROMIDE 0.5 MG/2.5 ML NEBU NEB SCH ×4 (01:30→20:10)
[2017-10-18 07:30] VITALS: BP 142/77
[2017-10-18] MEDS: LACTOBACILLUS RHAMNOSUS GG 1 EACH CAPSULE PO SCH ×2 (08:59→20:44)
[2017-10-18] MEDS: FAMOTIDINE 20 MG TABLET PO SCH (09:00)
[2017-10-18] MEDS: VALSARTAN 80 MG TABLET PO SCH ×2 (09:00→20:44)
[2017-10-18] MEDS: ASPIRIN EC 81 MG TABLET.DR PO SCH (09:01)
[2017-10-18] MEDS: FERROUS SULFATE 325 MG TABEC PO SCH ×2 (09:01→20:45)
[2017-10-18] MEDS: FUROSEMIDE 20 MG TABLET PO SCH ×2 (09:02→17:29)
[2017-10-18] MEDS: Z GUARD REMEDY PASTE 57 GM TUBE TOP SCH ×2 (09:02→20:45)
[2017-10-18 16:06] VITALS: BP 118/76
[2017-10-18 19:53] VITALS: BP 139/79
[2017-10-19] MEDS: ALBUTEROL SULFATE 2.5 MG/ 0.5 ML NEBU NEB SCH ×4 (01:30→18:53)
[2017-10-19] MEDS: IPRATROPIUM BROMIDE 0.5 MG/2.5 ML NEBU NEB SCH ×4 (01:30→18:53)
[2017-10-19] MEDS: LACTOBACILLUS RHAMNOSUS GG 1 EACH CAPSULE PO SCH ×2 (08:25→20:09)
[2017-10-19] MEDS: ASPIRIN EC 81 MG TABLET.DR PO SCH (08:25)
[2017-10-19] MEDS: FUROSEMIDE 20 MG TABLET PO SCH ×2 (08:25→16:24)
[2017-10-19] MEDS: VALSARTAN 80 MG TABLET PO SCH ×2 (08:25→20:12)
[2017-10-19] MEDS: FERROUS SULFATE 325 MG TABEC PO SCH ×2 (08:25→20:09)
[2017-10-19] MEDS: FAMOTIDINE 20 MG TABLET PO SCH (08:26)
[2017-10-19] MEDS: Z GUARD REMEDY PASTE 57 GM TUBE TOP SCH ×2 (08:26→20:09)
[2017-10-19 19:45] VITALS: BP 106/53
[2017-10-20] MEDS: IPRATROPIUM BROMIDE 0.5 MG/2.5 ML NEBU NEB SCH ×4 (01:30→20:06)
[2017-10-20] MEDS: ALBUTEROL SULFATE 2.5 MG/ 0.5 ML NEBU NEB SCH ×4 (01:30→20:06)
[2017-10-20 07:25] LABS: BASOPHILS % (AUTO) 0.4 % (0.0-2.0); EOSINOPHILS # (AUTO) 0.1 K/uL (0.0-0.7); EOSINOPHILS % (AUTO) 1.5 % (0.0-7.0); HEMATOCRIT 33.6 % (37-47); HEMOGLOBIN 11.3 G/DL (12.0-16.0); LYMPHOCYTES % (AUTO) 22.3 % (20.5-51.5); MEAN CORPUSCULAR HEMOGLOBIN 30.1 UUG (27.0-31.0); MEAN CORPUSCULAR HGB CONC 34 g/dL (32.0-37.0); MEAN CORPUSCULAR VOLUME 89.1 FL (81.0-99.0); MONOCYTES # (AUTO) 0.4 K/UL (0.1-1.30); MONOCYTES % (AUTO) 9.3 % (0.0-11.0); NEUTROPHILS # (AUTO) 2.8 K/UL (1.8-8.9); NEUTROPHILS % (AUTO) 66.5 % (38.5-71.5); PLATELET COUNT (AUTO) 370 K/UL (150-450); RED BLOOD CELL COUNT(AUTO) 3.77 MIL/UL (4.2-5.4); WHITE BLOOD COUNT (AUTO) 4.3 K/UL (4.0-11.2)
[2017-10-20 07:41] LABS: ALANINE AMINOTRANSFERASE 20 U/L (14-59); ALKALINE PHOSPHATASE 64 U/L (50-136); ASPARTATE AMINOTRANSFERASE 22 U/L (15-37); BILIRUBIN,TOTAL 0.3 mg/dL (0.2-1.0); CARBON DIOXIDE 28 mmol/L (21-32); CHLORIDE 96 mmol/L (98-107); CREATININE 1.1 mg/dL (0.6-1.3); GLUCOSE 93 mg/dL (74-106); MAGNESIUM 1.8 mg/dL (1.8-2.4); PHOSPHOROUS 3.4 mg/dL (2.5-4.9); POTASSIUM 4.1 mmol/L (3.5-5.1); TOTAL PROTEIN, SERUM 5.9 g/dL (6.4-8.2); UREA NITROGEN, BLOOD 26 mg/dL (7-18)
[2017-10-20] MEDS: FAMOTIDINE 20 MG TABLET PO SCH (08:16)
[2017-10-20] MEDS: LACTOBACILLUS RHAMNOSUS GG 1 EACH CAPSULE PO SCH ×2 (08:17→20:37)
[2017-10-20] MEDS: ASPIRIN EC 81 MG TABLET.DR PO SCH (08:17)
[2017-10-20] MEDS: FERROUS SULFATE 325 MG TABEC PO SCH ×2 (08:17→20:37)
[2017-10-20] MEDS: VALSARTAN 80 MG TABLET PO SCH ×2 (08:17→20:38)
[2017-10-20] MEDS: FUROSEMIDE 20 MG TABLET PO SCH (08:17)
[2017-10-20] MEDS: Z GUARD REMEDY PASTE 57 GM TUBE TOP SCH ×2 (08:21→20:38)
[2017-10-20 08:41] VITALS: BP 134/71
[2017-10-20 20:30] VITALS: BP 139/78
[2017-10-21] MEDS: IPRATROPIUM BROMIDE 0.5 MG/2.5 ML NEBU NEB SCH ×4 (01:30→20:13)
[2017-10-21] MEDS: ALBUTEROL SULFATE 2.5 MG/ 0.5 ML NEBU NEB SCH ×4 (01:30→20:13)
[2017-10-21] MEDS: LACTOBACILLUS RHAMNOSUS GG 1 EACH CAPSULE PO SCH ×2 (08:17→20:49)
[2017-10-21] MEDS: FAMOTIDINE 20 MG TABLET PO SCH (08:17)
[2017-10-21] MEDS: VALSARTAN 80 MG TABLET PO SCH ×2 (08:18→20:49)
[2017-10-21] MEDS: FERROUS SULFATE 325 MG TABEC PO SCH ×2 (08:18→20:49)
[2017-10-21] MEDS: ASPIRIN EC 81 MG TABLET.DR PO SCH (08:18)
[2017-10-21] MEDS: FUROSEMIDE 20 MG TABLET PO SCH (08:18)
[2017-10-21] MEDS: Z GUARD REMEDY PASTE 57 GM TUBE TOP SCH ×2 (08:19→20:54)
[2017-10-21 08:41] VITALS: BP 131/80
[2017-10-21 19:40] VITALS: BP 133/70
[2017-10-22] MEDS: IPRATROPIUM BROMIDE 0.5 MG/2.5 ML NEBU NEB SCH ×4 (01:16→19:50)
[2017-10-22] MEDS: ALBUTEROL SULFATE 2.5 MG/ 0.5 ML NEBU NEB SCH ×4 (01:16→19:51)
[2017-10-22 08:14] VITALS: BP 130/75
[2017-10-22 08:32] LABS: CARBON DIOXIDE 30 mmol/L (21-32); CHLORIDE 95 mmol/L (98-107); GLUCOSE 85 mg/dL (74-106); MAGNESIUM 1.8 mg/dL (1.8-2.4); POTASSIUM 4.2 mmol/L (3.5-5.1); UREA NITROGEN, BLOOD 21 mg/dL (7-18)
[2017-10-22] MEDS: FAMOTIDINE 20 MG TABLET PO SCH (09:18)
[2017-10-22] MEDS: FUROSEMIDE 20 MG TABLET PO SCH (09:18)
[2017-10-22] MEDS: FERROUS SULFATE 325 MG TABEC PO SCH ×2 (09:18→20:38)
[2017-10-22] MEDS: VALSARTAN 80 MG TABLET PO SCH ×2 (09:19→20:39)
[2017-10-22] MEDS: LACTOBACILLUS RHAMNOSUS GG 1 EACH CAPSULE PO SCH ×2 (09:19→20:38)
[2017-10-22] MEDS: ASPIRIN EC 81 MG TABLET.DR PO SCH (09:20)
[2017-10-22] MEDS: Z GUARD REMEDY PASTE 57 GM TUBE TOP SCH ×2 (09:20→20:44)
[2017-10-22 19:45] VITALS: BP 125/68
[2017-10-23] MEDS: ALBUTEROL SULFATE 2.5 MG/ 0.5 ML NEBU NEB SCH ×4 (01:30→18:46)
[2017-10-23] MEDS: IPRATROPIUM BROMIDE 0.5 MG/2.5 ML NEBU NEB SCH ×4 (01:30→18:46)
[2017-10-23 07:10] VITALS: BP 134/81
[2017-10-23 08:35] LABS: CARBON DIOXIDE 28 mmol/L (21-32); CHLORIDE 97 mmol/L (98-107); CREATININE 1.1 mg/dL (0.6-1.3); GLUCOSE 87 mg/dL (74-106); POTASSIUM 3.9 mmol/L (3.5-5.1); UREA NITROGEN, BLOOD 21 mg/dL (7-18)
[2017-10-23] MEDS: VALSARTAN 80 MG TABLET PO SCH ×2 (09:37→20:20)
[2017-10-23] MEDS: FAMOTIDINE 20 MG TABLET PO SCH (09:38)
[2017-10-23] MEDS: ASPIRIN EC 81 MG TABLET.DR PO SCH (09:38)
[2017-10-23] MEDS: FERROUS SULFATE 325 MG TABEC PO SCH ×2 (09:38→20:20)
[2017-10-23] MEDS: FUROSEMIDE 20 MG TABLET PO SCH (09:38)
[2017-10-23] MEDS: LACTOBACILLUS RHAMNOSUS GG 1 EACH CAPSULE PO SCH ×2 (09:38→20:20)
[2017-10-23] MEDS: Z GUARD REMEDY PASTE 57 GM TUBE TOP SCH ×2 (09:38→20:26)
[2017-10-23 19:30] VITALS: BP 138/78
[2017-10-24] MEDS: IPRATROPIUM BROMIDE 0.5 MG/2.5 ML NEBU NEB SCH ×4 (01:44→19:03)
[2017-10-24] MEDS: ALBUTEROL SULFATE 2.5 MG/ 0.5 ML NEBU NEB SCH ×4 (01:44→19:03)
[2017-10-24 07:10] VITALS: BP 147/83
[2017-10-24] MEDS: FERROUS SULFATE 325 MG TABEC PO SCH (08:12)
[2017-10-24] MEDS: ASPIRIN EC 81 MG TABLET.DR PO SCH (08:12)
[2017-10-24] MEDS: FUROSEMIDE 20 MG TABLET PO SCH (08:12)
[2017-10-24] MEDS: FAMOTIDINE 20 MG TABLET PO SCH (08:12)
[2017-10-24] MEDS: LACTOBACILLUS RHAMNOSUS GG 1 EACH CAPSULE PO SCH (08:12)
[2017-10-24 08:13] VITALS: BP 147/83
[2017-10-24] MEDS: VALSARTAN 80 MG TABLET PO SCH (08:13)
[2017-10-24] MEDS: Z GUARD REMEDY PASTE 57 GM TUBE TOP SCH (08:13)
== END 2017-10-24 15:00 | disposition home health service (06) | DRG 947 ==
LOC: TELE1 16:11
PROVIDERS: ADMIT Physical Medicine & Rehabilitation Pain Medicine; ATTEND Physical Medicine & Rehabilitation Pain Medicine
DX: R53.81 Other malaise (principal); J18.9 Pneumonia, unspecified organism; E44.0 Moderate protein-calorie malnutrition; D68.59 Other primary thrombophilia; I11.0 Hypertensive heart disease with heart failure; E22.2 Syndrome of inappropriate secretion of antidiuretic hormone; I27.20 Pulmonary hypertension, unspecified; I08.1 Rheumatic disorders of both mitral and tricuspid valves; I50.32 Chronic diastolic (congestive) heart failure; I48.92 Unspecified atrial flutter; J98.11 Atelectasis; N39.0 Urinary tract infection, site not specified; I48.91 Unspecified atrial fibrillation; D64.9 Anemia, unspecified; E11.9 Type 2 diabetes mellitus without complications; I25.10 Atherosclerotic heart disease of native coronary artery without angina pectoris; I34.0 Nonrheumatic mitral (valve) insufficiency; I67.2 Cerebral atherosclerosis; I87.2 Venous insufficiency (chronic) (peripheral); M19.90 Unspecified osteoarthritis, unspecified site; Z85.038 Personal history of other malignant neoplasm of large intestine; Z96.643 Presence of artificial hip joint, bilateral; F03.90 Unspecified dementia, unspecified severity, without behavioral disturbance, psychotic disturbance, mood disturbance, and anxiety; I70.0 Atherosclerosis of aorta; K58.9 Irritable bowel syndrome, unspecified; M81.0 Age-related osteoporosis without current pathological fracture; Z90.49 Acquired absence of other specified parts of digestive tract; R26.9 Unspecified abnormalities of gait and mobility; Z91.048 Other nonmedicinal substance allergy status
CPT/HCPCS: 36415; 71010; 83735; 84100; 84300; 85025; 92526; 92610; 94640; 94664; 97110; 97112; 97116; 97165; 97530; 97535; A4663; C1758; J3590; Q0144

== ENCOUNTER 2018-11-25 22:17 | Inpatient (IN) | payer MEDICARE, BC ==
[~2018-11-25] VITALS: Ht 165.1 cm; Wt 53.2 kg
[~2018-11-25 22:17] MED LIST changes: -ACET-2154 PO; +AZIT250T13 PO; -AZIT250T6 PO
--- NOTE | 2018-11-25 22:30 | NUR ---
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 AAOX3. Pt states she was getting a glass of water and suddenly found her daughter picking her up from the floor. Pt denies any injury, dizziness, loss of consciousness. Pt denies chest pain/shortness of breath. Denies N/V/D. Pt placed in gown. Safety measures implemented. IV present 20 gauge on left AC started by paramedics.
--- NOTE | 2018-11-25 22:34 | NUR ---
Dr. Demetrio WOLF MD at bedside for MSE.
--- NOTE | 2018-11-25 22:47 | NUR ---
Per pt, she is taking losartan/possibly valsartan. All other meds d/c by primary MD.
[2018-11-25 22:56] LABS: BASOPHILS % (AUTO) 0.2 % (0.0-2.0); EOSINOPHILS % (AUTO) 0.4 % (0.0-7.0); HEMATOCRIT 37.3 % (31.2-41.9); HEMOGLOBIN 12.5 g/dL (10.9-14.3); LYMPHOCYTES # (AUTO) 1.6 K/uL (20.0-40.0); LYMPHOCYTES % (AUTO) 27.5 % (20.5-51.5); MEAN CORPUSCULAR HEMOGLOBIN 30.6 uug (24.7-32.8); MEAN CORPUSCULAR HGB CONC 34 g/dL (32.3-35.6); MEAN CORPUSCULAR VOLUME 91.2 fL (75.5-95.3); MONOCYTES # (AUTO) 0.5 K/uL (2.0-10.0); NEUTROPHILS # (AUTO) 3.7 K/uL (1.8-8.9); NEUTROPHILS % (AUTO) 62.9 % (38.5-71.5); PLATELET COUNT (AUTO) 203 K/uL (179-408); RED BLOOD CELL COUNT(AUTO) 4.09 MIL/uL (3.63-4.92); WHITE BLOOD COUNT (AUTO) 5.9 K/uL (3.8-11.8)
[2018-11-25 23:04] LABS: CARBON DIOXIDE 28 mmol/L (21-32); CHLORIDE 97 mmol/L (98-107); CREATININE 1.5 mg/dL (0.6-1.3); GLUCOSE 104 mg/dL (74-106); POTASSIUM 3.9 mmol/L (3.5-5.1); UREA NITROGEN, BLOOD 18 mg/dL (7-18)
[2018-11-25 23:09] LABS: ALANINE AMINOTRANSFERASE 19 U/L (14-59); ALKALINE PHOSPHATASE 80 U/L (50-136); ASPARTATE AMINOTRANSFERASE 23 U/L (15-37); BILIRUBIN,DIRECT 0.1 mg/dL (0.0-0.2); BILIRUBIN,TOTAL 0.3 mg/dL (0.2-1.0); TOTAL PROTEIN, SERUM 6.6 g/dL (6.4-8.2)
--- NOTE | 2018-11-26 01:04 | NUR ---
Report given to CAROLINA Paulson
--- NOTE | 2018-11-26 01:30 | NUR ---
Received patient from ER via gurney. Awake and oriented x 3. No acute distress noted. Patient c/o back pain because hx of scoliosis. [facility] assessment done. IV on the left AC, patent and intact. TELE SR. In room air. Vital signs stable. Sacral redness. Belongings list done. Bilateral foot edema, non pitting. Safety initiated. Call light within reach. Will continue to monitor.
[2018-11-26] MEDS ORDERED: IV NS 1000 ML 1,000 ML IV PRN (01:58)
[2018-11-26] MEDS ORDERED: ACETAMINOPHEN 325 MG TABLET PO PRN (02:00)
[2018-11-26] MEDS ORDERED: Z GUARD REMEDY PASTE 57 GM TUBE TOP PRN (02:00)
[2018-11-26] MEDS ORDERED: MAGNESIUM HYDROXIDE 30 ML LIQUID UDC PO PRN (02:00)
[2018-11-26] MEDS ORDERED: ONDANSETRON 4 MG/2 ML VIAL IV PRN (02:00)
[2018-11-26] MEDS ORDERED: HYDROCODONE/APAP 5-325MG TABLET PO PRN (02:00)
[2018-11-26 04:43] VITALS: BP 156/73
[2018-11-26 04:55] VITALS: BP 142/74
--- NOTE | 2018-11-26 05:32 | NUR ---
NO changes t/o shift. IVF infusing on the left AC, patent and intact. Vital signs stable. TELE SR. Safety and comfort measures maintained t/o shift. All meds given as ordered. all needs met.
--- NOTE | 2018-11-26 07:30 | NUR ---
RECEIVED PATIENT AWAKE ALERT AND ORIENTED X3 BUT IS FORGETFUL DENIES PAIN OR DISCOMFORTS AT THIS TIME.REMAIN ON IVF ORDERED WITH NO S/S OF INFILTERATION ON SITE AT THIS TIME.PATIENT IS ON ROOM AIR WITH NO S/S OF SHORTNESS OF BREATH TELE IS SR CALL LIGHTS AND PERSONAL BELONGINGS PLACED WITHIN EASY REACH NOT IN DISTRESS AT THIS TIME.
--- NOTE | 2018-11-26 08:45 | NUR ---
DR KWOK HERE TO SEE PATIENT WITH NEW ORDERS AND NOTED.
[2018-11-26 11:01] LABS: ALANINE AMINOTRANSFERASE 16 U/L (14-59); ALKALINE PHOSPHATASE 87 U/L (50-136); ASPARTATE AMINOTRANSFERASE 23 U/L (15-37); BILIRUBIN,TOTAL 0.5 mg/dL (0.2-1.0); CARBON DIOXIDE 28 mmol/L (21-32); CHLORIDE 100 mmol/L (98-107); CREATININE 1.4 mg/dL (0.6-1.3); GLUCOSE 95 mg/dL (74-106); MAGNESIUM 2.2 mg/dL (1.8-2.4); PHOSPHOROUS 2.9 mg/dL (2.5-4.9); POTASSIUM 3.8 mmol/L (3.5-5.1); TOTAL PROTEIN, SERUM 6.3 g/dL (6.4-8.2); UREA NITROGEN, BLOOD 17 mg/dL (7-18)
[2018-11-26 11:09] VITALS: BP 140/75
[2018-11-26 11:16] VITALS: BP_SYST 163; BP_SYST 168; BP_SYST 174; BP_DIAS 80; BP_DIAS 85; BP_DIAS 87
--- NOTE | 2018-11-26 11:16 | NUR ---
ORDER FOR ORHO BLOOD PRESSURE RECEIVED FROM DR BOB MIRELES STATED PATIENT WILL BE DISCHARGED TODAY.
--- NOTE | 2018-11-26 11:30 | NUR ---
ORTHO BLOOD PRESSURE DONE AND RESULTS RELAYED TO DR BOB MIRELES SEE THE LONG FORM WITH NO NEW ORDERS AT THIS TIME.
--- NOTE | 2018-11-26 11:35 | NUR ---
NEW ORDER TO DISCHARGE PATIENT HOME TODAY RECEIVED AND NOTED PATIENT AWARE AND STATED THAT HER DAUGHTER WILL PICK HER UP.
[2018-11-26 11:38] LABS: BASOPHILS % (AUTO) 0.3 % (0.0-2.0); EOSINOPHILS % (AUTO) 0.2 % (0.0-7.0); HEMATOCRIT 36.6 % (31.2-41.9); HEMOGLOBIN 12.3 g/dL (10.9-14.3); LYMPHOCYTES # (AUTO) 0.7 K/uL (20.0-40.0); LYMPHOCYTES % (AUTO) 13.9 % (20.5-51.5); MEAN CORPUSCULAR HEMOGLOBIN 30.7 uug (24.7-32.8); MEAN CORPUSCULAR HGB CONC 34 g/dL (32.3-35.6); MEAN CORPUSCULAR VOLUME 91.5 fL (75.5-95.3); MONOCYTES # (AUTO) 0.4 K/uL (2.0-10.0); MONOCYTES % (AUTO) 7.5 % (0.0-11.0); NEUTROPHILS # (AUTO) 3.9 K/uL (1.8-8.9); NEUTROPHILS % (AUTO) 78.1 % (38.5-71.5); PLATELET COUNT (AUTO) 197 K/uL (179-408)
[2018-11-26] MEDS ORDERED: MONT10TA22 PO (11:41)
[2018-11-26 12:42] LABS: *BILIRUBIN,URIN NEGATIVE (NEGATIVE); *BLOOD, URINE 1+ (NEGATIVE); *CLARITY,URINE CLOUDY (CLEAR); *COLOR,URINE YELLOW (YELLOW); *KETONES,URINE NEGATIVE (NEGATIVE); *UROBILINOGEN,URINE 0.2 E.U./dl (NORMAL); LEUKOCYTE ESTERASE ,URINE 3+ (NEGATIVE); NITRITE, URINE POSITIVE (NEGATIVE); PH,URINE 6.5 (5.0-8.0); UGLUCOSE NEGATIVE (NEGATIVE)
[2018-11-26 12:55] LABS: BACTERIA,URINE MANY /HPF (NONE SEEN); WBC,URINE TNTC /HPF (0-3)
[2018-11-26 12:57] LABS: *URINE TOTAL PROTEIN RANDOM 28.5 mg/dL (<150/24HR); SQUAMOUS EPITHELIAL CELL,UR FEW /HPF (NONE SEEN)
--- NOTE | 2018-11-26 14:00 | NUR ---
CALLED THE [facility] SPOKE WITH CAMERON AND ALL HER NEW PRESCRIPTIONS CALLED IN AND INFORMED HER THAT PATIENTS DAUGHTER ANITA WILL ELECTRONIC ASSEMBLER GROUP LEADER WITHIN THE HOUR.
--- NOTE | 2018-11-26 15:15 | NUR ---
PATIENT DISCHARGED PICKED UP BY ANITA PATIENTS DAUGHTER IN SATISFACTORY CONDITION WITH DISCHARGE INSTRUCTIONS AND PRESCRIPTIONS AND INSTRUCTIONS TO CONTINUE MEDICATIONS ORDERED AND FOLLOW UP WITH HER PRIMARY DOCTOR WITHIN THE NEXT ONE TO TWO WEEKS AND SHE EXPRESSED UNDERSTANDING.
[2018-11-26] MEDS ORDERED: Z GUARD REMEDY PASTE 57 GM TUBE TOP SCH (21:00)
== END 2018-11-26 15:15 | disposition home or self-care (01) | DRG 74 ==
LOC: ER 22:19 → TELE 11-26 01:06
PROVIDERS: ADMIT Internal Medicine; ATTEND Nurse Practitioner Acute Care
DX: G90.8 Other disorders of autonomic nervous system (principal); E87.1 Hypo-osmolality and hyponatremia; N39.0 Urinary tract infection, site not specified; I50.32 Chronic diastolic (congestive) heart failure; D68.59 Other primary thrombophilia; Z85.038 Personal history of other malignant neoplasm of large intestine; Z90.49 Acquired absence of other specified parts of digestive tract; E86.0 Dehydration; I25.10 Atherosclerotic heart disease of native coronary artery without angina pectoris; E11.9 Type 2 diabetes mellitus without complications; D63.8 Anemia in other chronic diseases classified elsewhere; I11.0 Hypertensive heart disease with heart failure; M47.812 Spondylosis without myelopathy or radiculopathy, cervical region; N28.9 Disorder of kidney and ureter, unspecified; R29.6 Repeated falls; I48.91 Unspecified atrial fibrillation; M48.02 Spinal stenosis, cervical region
CPT/HCPCS: 36415; 70030-TC; 70450; 71045; 72125; 83735; 84100; 84156; 84300; 85025; 85730; 93005; A4663; C1758; G0378; J7030

== ENCOUNTER 2019-06-14 17:38 | Inpatient (IN) | payer MEDICARE, BC ==
[~2019-06-14] VITALS: Ht 165.1 cm; Wt 50.8 kg
[~2019-06-14 17:38] MED LIST changes: -ACET325T53 PO; -ALBU2.5V13 NEB; -ASPI-618 PO; -AZIT250T13 PO; -CEPH500C2 PO; -CLON0.1T14 PO; -FAMO20TA8 PO; -FERR325T28 PO; -FURO20TA4 PO; -GUAI5SYR PO; -HYDR-3326 PO; -IPRA0.2S6 NEB; -LACT1CAP57 PO; -MAGN400O6 PO; -MENT71OI TOP; +MONT10TA22 PO; -ZOLP5TAB8 PO
--- NOTE | 2019-06-14 17:50 | NUR ---
PT IS A/OX4, BIB RA83, C/O SYNCOPE AND HYPOTENSION. PER TERRITORY SALES REPRESENTATIVE'S REPORT, PT WAS HYPOTENSIVE 70/40 IN THE FIELD. 500 CC NS BOLUS WAS ADMIN VIA 18G TEJAS CCESS IN RAC BY RA83, BS 180 IN THE FIELD. PT IS CURRENTLY AWAKE AND ALERT. VSS. PT DENIES ANY COMPLAINT AT THIS TIME.
--- NOTE | 2019-06-14 18:03 | NUR ---
MEDICAL PAYMENT POSTER AT BEDSIDE.
[2019-06-14 18:11] LABS: BASOPHILS % (AUTO) 0.3 % (0.0-2.0); EOSINOPHILS % (AUTO) 0.4 % (0.0-7.0); HEMATOCRIT 37.1 % (31.2-41.9); HEMOGLOBIN 12.5 g/dL (10.9-14.3); LYMPHOCYTES # (AUTO) 0.9 K/uL (20.0-40.0); LYMPHOCYTES % (AUTO) 18.5 % (20.5-51.5); MEAN CORPUSCULAR HEMOGLOBIN 29.7 uug (24.7-32.8); MEAN CORPUSCULAR HGB CONC 34 g/dL (32.3-35.6); MEAN CORPUSCULAR VOLUME 88.1 fL (75.5-95.3); MONOCYTES # (AUTO) 0.5 K/uL (2.0-10.0); MONOCYTES % (AUTO) 9.7 % (0.0-11.0); NEUTROPHILS # (AUTO) 3.4 K/uL (1.8-8.9); NEUTROPHILS % (AUTO) 71.1 % (38.5-71.5); PLATELET COUNT (AUTO) 189 K/uL (179-408); RED BLOOD CELL COUNT(AUTO) 4.21 MIL/uL (3.63-4.92); WHITE BLOOD COUNT (AUTO) 4.8 K/uL (3.8-11.8)
[2019-06-14 18:24] LABS: ALANINE AMINOTRANSFERASE 16 U/L (14-59); ALKALINE PHOSPHATASE 74 U/L (50-136); ASPARTATE AMINOTRANSFERASE 19 U/L (15-37); BILIRUBIN,TOTAL 0.5 mg/dL (0.2-1.0); CARBON DIOXIDE 28 mmol/L (21-32); CHLORIDE 93 mmol/L (98-107); CREATININE 1.1 mg/dL (0.6-1.3); GLUCOSE 94 mg/dL (74-106); POTASSIUM 3.5 mmol/L (3.5-5.1); TOTAL PROTEIN, SERUM 6.2 g/dL (6.4-8.2); UREA NITROGEN, BLOOD 17 mg/dL (7-18)
[2019-06-14] MEDS ORDERED: FURO-152 PO (18:47)
[2019-06-14] MEDS ORDERED: LOSA50TA39 PO (18:47)
--- NOTE | 2019-06-14 19:05 | NUR ---
SHIFT REPORT GIVEN TO DANY Talbot RN.
--- NOTE | 2019-06-14 19:05 | NUR ---
PT BACK IN ER FROM RADIOLOGY - UNABLE TO OBTAIN CT IMAGING. PT REPORTS SHE CANNOT LAY FLAT DUE TO SCOLIOSIS.
--- NOTE | 2019-06-14 19:59 | NUR ---
PATIENT IN ROOM A/OX3. WATCHING TV ON Crew.C/O NECK PAIN AND BACK PAIN FROM FALL. PATIENT HAS HEMATOMA ON LEFT SIDE OF HEAD DUE TO FALL. DENIES LOC AFTER FALL. NO DISTRESS NOTED.
--- NOTE | 2019-06-14 20:23 | NUR ---
Called [facility] for Panel call - awaiting call back from Susi Koch NP,
--- NOTE | 2019-06-14 20:30 | NUR ---
DR KHAN SPEAK WITH ARIS BORREGO CLINICAL TRIALS NURSE FOR EPPIC
--- NOTE | 2019-06-14 21:05 | NUR ---
TRANSFERED TO 3RD FLOOR TELE
--- NOTE | 2019-06-14 21:10 | NUR ---
patient arrived on the floor via gurney, will begin admission.
[2019-06-14] MEDS ORDERED: MAGNESIUM HYDROXIDE 30 ML LIQUID UDC PO PRN (21:30)
[2019-06-14] MEDS ORDERED: ONDANSETRON 4 MG/2 ML VIAL IV PRN ×2 (21:30→21:45)
[2019-06-14] MEDS ORDERED: ACETAMINOPHEN 325 MG TABLET PO PRN (21:30)
[2019-06-14] MEDS ORDERED: Z GUARD REMEDY PASTE 57 GM TUBE TOP PRN ×2 (21:30→21:45)
[2019-06-14] MEDS ORDERED: HYDROCODONE/APAP 5-325MG TABLET PO PRN ×2 (21:30→21:45)
[2019-06-14] MEDS ORDERED: ZOLPIDEM 5 MG TABLET PO PRN (21:30)
--- NOTE | 2019-06-14 21:30 | NUR ---
patient was transferred to the bed, changed, put on the monitor. No acute distress noted, comfort and safety measures are in place.
[2019-06-15 00:25] VITALS: BP 148/80
[2019-06-15 05:05] VITALS: BP 142/78
[2019-06-15 06:36] LABS: BASOPHILS % (AUTO) 0.3 % (0.0-2.0); EOSINOPHILS % (AUTO) 0.2 % (0.0-7.0); HEMATOCRIT 36.3 % (31.2-41.9); HEMOGLOBIN 12.4 g/dL (10.9-14.3); LYMPHOCYTES # (AUTO) 0.5 K/uL (20.0-40.0); LYMPHOCYTES % (AUTO) 12.7 % (20.5-51.5); MEAN CORPUSCULAR HEMOGLOBIN 29.8 uug (24.7-32.8); MEAN CORPUSCULAR HGB CONC 34 g/dL (32.3-35.6); MEAN CORPUSCULAR VOLUME 87.3 fL (75.5-95.3); MONOCYTES # (AUTO) 0.3 K/uL (2.0-10.0); MONOCYTES % (AUTO) 7.8 % (0.0-11.0); NEUTROPHILS # (AUTO) 3.2 K/uL (1.8-8.9); PLATELET COUNT (AUTO) 164 K/uL (179-408); RED BLOOD CELL COUNT(AUTO) 4.16 MIL/uL (3.63-4.92); WHITE BLOOD COUNT (AUTO) 4.1 K/uL (3.8-11.8)
[2019-06-15 06:50] LABS: CARBON DIOXIDE 28 mmol/L (21-32); CHLORIDE 94 mmol/L (98-107); CHOLESTEROL 147 mg/dL (<200); CREATININE 0.8 mg/dL (0.6-1.3); GLUCOSE 96 mg/dL (74-106); HDL CHOLESTEROL 95 mg/dL (40-60); MAGNESIUM 1.7 mg/dL (1.8-2.4); PHOSPHOROUS 3.2 mg/dL (2.5-4.9); POTASSIUM 3.6 mmol/L (3.5-5.1); TRIGLYCERIDES 27 MG/DL (30-150); UREA NITROGEN, BLOOD 14 mg/dL (7-18)
--- NOTE | 2019-06-15 07:00 | NUR ---
Patient in Bed Awake. No signs of Distress noted. Still complaining of Pain on Left Hip due to S/P Fall, but refused to take any Pain Medications. Denies Chest Pain. All needs attended and met. Will Endorsed to Oncoming Nurse.
--- NOTE | 2019-06-15 07:15 | NUR ---
RECEIVED PATIENT IN BED WITH EYES CLOSED OPENS EYES WHEN NAME IS CALLED ALERT ORIENTED STATED COMFORTABLE AT THIS TIME TELE WITH SR-ST DENIES CHEST PAIN RESTING COMFORTABLY CALL LIGHTS AND PERSONAL BELONGINGS ARE WITHIN EASY REACH MADE COMFORTABLE AND WILL CONTINUE TO OBSERVE.
--- NOTE | 2019-06-15 09:30 | NUR ---
AMBULATORY WITH THE FRONT WHEEL WALKER IN THE HALLWAY WITH SLOW STEADY GAIT AND TOLERATED WELL
[2019-06-15 11:03] VITALS: BP 113/59
--- NOTE | 2019-06-15 11:08 | NUR ---
ECHO COMPLETED ORDERED AND ITS 55-60 PERCENT EF AT THIS TIME
[2019-06-15] MEDS: MAGNESIUM SULFATE/D5W 100 ML IV SCH ×2 (13:19→14:33)
[2019-06-15 14:29] VITALS: BP_SYST 106; BP_SYST 114; BP_SYST 125; BP_DIAS 48; BP_DIAS 50; BP_DIAS 51
[2019-06-15 15:30] VITALS: BP 136/69
[2019-06-15 16:17] LABS: *BILIRUBIN,URIN NEGATIVE (NEGATIVE); *BLOOD, URINE 1+ (NEGATIVE); *CLARITY,URINE CLEAR (CLEAR); *COLOR,URINE YELLOW (YELLOW); *KETONES,URINE NEGATIVE (NEGATIVE); *UROBILINOGEN,URINE 0.2 E.U./dl (NORMAL); LEUKOCYTE ESTERASE ,URINE NEGATIVE (NEGATIVE); NITRITE, URINE NEGATIVE (NEGATIVE); UGLUCOSE NEGATIVE (NEGATIVE)
--- NOTE | 2019-06-15 16:24 | NUR ---
UNABLE TO COLLECT URINE ORDERED ATTEMPTED WITH A BEDPAN AND INCLUDING WALKING PATIENT TO THE BATHROOM SUJIT DENTAL LABORATORY MANAGER HERE AND AWARE AND STATED PKAY TO STRAIGHT CATH PATIENT DONE AND SENT TO THE LAB.
[2019-06-15 16:26] LABS: WBC,URINE NONE SEEN /HPF (0-3)
[2019-06-15 16:27] LABS: BACTERIA,URINE 1 /HPF (NONE SEEN); SQUAMOUS EPITHELIAL CELL,UR MODERATE /HPF (NONE SEEN)
--- NOTE | 2019-06-15 18:00 | NUR ---
ALERT BUT FORGETFUL NEEDING FREQUENT REDIRECTION C/O GENERALISED PAIN BUT REFUSED PAIN MEDICATIONS STATED THAT THE MEDICATIONS MAKES HER WORSE REPOSITIONED AND MADE COMFORTABLE.
--- NOTE | 2019-06-15 19:15 | NUR ---
PATIENT ALERT , NO SOB NO CHEST PAIN NOTED, CONT TO MONITOR FOR PAIN. PATIENT COMPLAIN OF HEAD PAIN AND LEFT RIBS PAIN, WILL MEDICATE FOR PAIN, INCONTINENT OF BLADDER, KEPT CLEAN AND DRY, CALL LIGHT WITHIN REACH.
[2019-06-15 20:15] VITALS: BP 159/77
[2019-06-16 00:32] VITALS: BP 142/71
[2019-06-16 05:01] VITALS: BP 149/69
[2019-06-16 05:50] LABS: BASOPHILS % (AUTO) 0.4 % (0.0-2.0); EOSINOPHILS # (AUTO) 0.1 K/uL (0.0-0.7); HEMATOCRIT 34.2 % (31.2-41.9); HEMOGLOBIN 11.7 g/dL (10.9-14.3); LYMPHOCYTES # (AUTO) 0.9 K/uL (20.0-40.0); LYMPHOCYTES % (AUTO) 25.9 % (20.5-51.5); MEAN CORPUSCULAR HEMOGLOBIN 30.2 uug (24.7-32.8); MEAN CORPUSCULAR HGB CONC 34 g/dL (32.3-35.6); MONOCYTES # (AUTO) 0.3 K/uL (2.0-10.0); MONOCYTES % (AUTO) 9.6 % (0.0-11.0); NEUTROPHILS # (AUTO) 2.1 K/uL (1.8-8.9); NEUTROPHILS % (AUTO) 62.1 % (38.5-71.5); PLATELET COUNT (AUTO) 159 K/uL (179-408); RED BLOOD CELL COUNT(AUTO) 3.88 MIL/uL (3.63-4.92); WHITE BLOOD COUNT (AUTO) 3.4 K/uL (3.8-11.8)
--- NOTE | 2019-06-16 06:46 | NUR ---
PATIENT ALERT BUT FORGETFUL, NO SOB NO CHEST PAIN NOTED. CONT TO MONITOR FOR PAIN AND DISCOMFORT, TURN AND REPOSITION GENTLY, CALL LIGHT WITHIN REACH. CONT TO MONITOR.
--- NOTE | 2019-06-16 07:20 | NUR ---
IN BED DOSING OFF AND ON ALERT BUT FORGETFUL REQUIRES MAX ASSIST FOR ALL ADL TURN AND REPOSITIONED HEELS FLOATED MADE COMFORTABLE AND WILL CONTINUE TO OBSERVE.
[2019-06-16 08:59] LABS: CARBON DIOXIDE 26 mmol/L (21-32); CHLORIDE 93 mmol/L (98-107); CREATININE 0.8 mg/dL (0.6-1.3); GLUCOSE 82 mg/dL (74-106); MAGNESIUM 2.1 mg/dL (1.8-2.4); PHOSPHOROUS 2.9 mg/dL (2.5-4.9); POTASSIUM 3.4 mmol/L (3.5-5.1); UREA NITROGEN, BLOOD 11 mg/dL (7-18)
[2019-06-16] MEDS ORDERED: LOSARTAN POTASSIUM 25 MG TABLET PO SCH (09:00)
[2019-06-16] MEDS ORDERED: LOSA25TA3 PO (10:00)
[2019-06-16 11:03] VITALS: BP 134/64
--- NOTE | 2019-06-16 12:15 | NUR ---
SUJIT HURST COOK STARCH HERE AND SEEN PATIENT SPOKE WITH HER SON IN LAW AT LENGTH AND INFORMED HIM THAT THE PATIENT WILL BE DISCHARGED HOME TODAY AND HE STATED [facility] WILL BE BACK LATER TO PICK PATIENT UP.
[2019-06-16] MEDS ORDERED: POTASSIUM CHLORIDE 20 MEQ TAB.PRT.SR PO ONE (12:45)
--- NOTE | 2019-06-16 12:57 | NUR ---
POTASSIUM LEVEL IS 3.1 SUJIT HURST NOTIFIED WITH REPLACEMENT ORDER AND GIVEN ORDERED
--- NOTE | 2019-06-16 13:30 | NUR ---
PATIENT DISCHARGED PICKED UP BY HER SON IN [place] IN SATISFACTORY CONDITION ALERT BUT DISORIENTED. DISCHARGE INSTRUCTIONS AND PRESCRIPTION GIVEN AND INSTRUCTED TO CALL DR CENTENO FOR A FOLLOW UP APPOINTMENT WITHIN THE NEXT ONE TO TWO WEEKS AND HE EXPRESSED UNDERSTANDING.
== END 2019-06-16 13:30 | disposition home or self-care (01) | DRG 73 ==
LOC: ER 17:39 → TELE3 20:49
PROVIDERS: ADMIT Nurse Practitioner Acute Care; ATTEND Nurse Practitioner Acute Care
DX: G90.8 Other disorders of autonomic nervous system (principal); G93.41 Metabolic encephalopathy; I50.32 Chronic diastolic (congestive) heart failure; E87.1 Hypo-osmolality and hyponatremia; E86.0 Dehydration; I11.0 Hypertensive heart disease with heart failure; I48.91 Unspecified atrial fibrillation; I25.10 Atherosclerotic heart disease of native coronary artery without angina pectoris; Z96.643 Presence of artificial hip joint, bilateral; Z90.49 Acquired absence of other specified parts of digestive tract; Z85.038 Personal history of other malignant neoplasm of large intestine; K58.9 Irritable bowel syndrome, unspecified; E11.9 Type 2 diabetes mellitus without complications; Z79.899 Other long term (current) drug therapy; D63.8 Anemia in other chronic diseases classified elsewhere
CPT/HCPCS: 36415; 70030-TC; 70450; 71045; 72125; 83735; 84100; 85025; 85610; 87086; 93005; 93307; 97116; 97530; A4663; C1758; G0378; J3475; J7050

== ENCOUNTER 2019-06-16 14:23 | Inpatient (IN) | payer MEDICARE, BC ==
[~2019-06-16] VITALS: Ht 152.4 cm; Wt 52.2 kg
[~2019-06-16 14:23] MED LIST changes: +FURO-152 PO; +LOSA25TA3 PO; +LOSA50TA39 PO; -MONT10TA22 PO; -VALS80TA2 PO
--- NOTE | 2019-06-16 16:10 | NUR ---
RECEIVED PATIENT FOR ADMISSION 89 YEARS OLD FEMALE BY [facility] FROM ED TO ROOM 306 WITH DX OF SYNCOPE.PATIENT WAS DISCHARGED FROM THIS FLOOR THIS AFTERNOON PATIENT STATED THAT SOON SHE GOT HOME INTO HER LIVING ROOM SHE PASSED OUT AND WAS RUSHED HERE BY PARAMEDICS.PATIENT IS AWAKE ALERT AND AWARE WANTED TO KNOW WHY SHE KEPT PASSING OUT.REORIENTED TO ROOM AND HOSPITAL PROTOCOL ON ROOM AIR WITH NO SHORTNESS OF BREATH AT THIS TIME.PATIENT DENIES DIZZINESS AT THIS TIME.CALLED SALIMA HURST AND LEFT HER A MESSAGE FOR ADMITTING ORDERS.
[2019-06-16 16:39] VITALS: BP 145/87
[2019-06-16] MEDS ORDERED: ONDANSETRON 4 MG/2 ML VIAL IV PRN (17:30)
[2019-06-16] MEDS ORDERED: ACETAMINOPHEN 325 MG TABLET PO PRN (17:30)
[2019-06-16] MEDS ORDERED: MAGNESIUM HYDROXIDE 30 ML LIQUID UDC PO PRN (17:30)
--- NOTE | 2019-06-16 17:46 | NUR ---
AT THE MOMENT PATIENT IS AWAKE ALERT SITTING UP IN HER BED EATING HER DINNER WITH NO DISTRESS AT THIS TIME WILL CONTINUE TO OBSERVE AND PROVIDE SAFE AND THERAPEUTIC ENVIRONMENT AT ALL TIMES
[2019-06-16 20:00] VITALS: BP 136/78
--- NOTE | 2019-06-16 20:44 | NUR ---
Susi Koch called, discussed Chest xray need d/t pain in the left ribcage. Wants to hold off on xrays, OK to use commode for BM, will follow up in the AM with environmental services director.
[2019-06-16] MEDS: Z GUARD REMEDY PASTE 57 GM TUBE TOP SCH (21:09)
[2019-06-16] MEDS: HYDROCODONE/APAP 5-325MG TABLET PO PRN (21:09)
--- NOTE | 2019-06-16 21:15 | NUR ---
Patient is restless, reports back pain and discomfort. Dale 5-325 PRN dose given.
--- NOTE | 2019-06-16 22:00 | NUR ---
patient is asleep, bed alarm is on, comfort and safety provided.
[2019-06-17] VITALS (7 sets, daily range): BP systolic 107–148; BP diastolic 51–74
[2019-06-17 06:40] LABS: CARBON DIOXIDE 30 mmol/L (21-32); CHLORIDE 93 mmol/L (98-107); CREATININE 0.9 mg/dL (0.6-1.3); GLUCOSE 83 mg/dL (74-106); MAGNESIUM 1.9 mg/dL (1.8-2.4); PHOSPHOROUS 2.6 mg/dL (2.5-4.9); POTASSIUM 4.5 mmol/L (3.5-5.1); UREA NITROGEN, BLOOD 15 mg/dL (7-18)
[2019-06-17 06:42] LABS: BASOPHILS % (AUTO) 0.2 % (0.0-2.0); EOSINOPHILS # (AUTO) 0.1 K/uL (0.0-0.7); EOSINOPHILS % (AUTO) 1.4 % (0.0-7.0); HEMATOCRIT 35.2 % (31.2-41.9); LYMPHOCYTES % (AUTO) 24.9 % (20.5-51.5); MEAN CORPUSCULAR HGB CONC 34 g/dL (32.3-35.6); MEAN CORPUSCULAR VOLUME 88.1 fL (75.5-95.3); MONOCYTES # (AUTO) 0.5 K/uL (2.0-10.0); MONOCYTES % (AUTO) 11.1 % (0.0-11.0); NEUTROPHILS # (AUTO) 2.6 K/uL (1.8-8.9); NEUTROPHILS % (AUTO) 62.4 % (38.5-71.5); PLATELET COUNT (AUTO) 159 K/uL (179-408); RED BLOOD CELL COUNT(AUTO) 3.99 MIL/uL (3.63-4.92); WHITE BLOOD COUNT (AUTO) 4.2 K/uL (3.8-11.8)
--- NOTE | 2019-06-17 07:20 | NUR ---
RECEIVED PATIENT ASLEEP WITH EYES CLOSED OPENS WHEN TOUCH OR NAME IS CALLED BUT PROMPTLY FALLS ASLEEP ALERT WHEN AWAKE BUT IS DISORIENTED.ON ROOM AIR WITH NO SHORTNESS OF BREATH TELE MONITORING IN PROGRESS ORDERED NO DISTRESS AT THIS TIME. CALL LIGHTS AND PERSONAL BELONGINGS ARE WITHIN EASY REACH MADE COMFORTABLE AND WILL CONTINUE TO OBSERVE AND PROVIDE SAFE AND THERAPEUTIC ENVIRONMENT AT ALL TIMES.
[2019-06-17] MEDS: Z GUARD REMEDY PASTE 57 GM TUBE TOP SCH ×2 (08:25→21:15)
[2019-06-17] MEDS ORDERED: LOSARTAN POTASSIUM 25 MG TABLET PO SCH (09:00)
--- NOTE | 2019-06-17 11:24 | NUR ---
PATIENT SEEN BY PHYSICAL THERAPY FOR EVALUATION PATIENT AMBULATED WITH THE FRONT WHEEL WALKER WITH 2 MAX ASSIST WITH ORTHOSTATIC BLOOD PRESSURE ORDERED.
--- NOTE | 2019-06-17 12:15 | NUR ---
DR IRVIN DISSOLVER OPERATOR HERE TO SEE PATIENT WITH NO NEW ORDERS AT THIS TIME
--- NOTE | 2019-06-17 12:31 | NUR ---
SUJIT SCHOOL LIBRARY MEDIA PROGRAM DIRECTOR HERE SEEN PATIENT AND CALLED AND SPOKE WITH PATIENTS DAUGHTER MARKO OVER THE PHONE AND EXPLAINED TO HER THE PLAN OF CARE ALSO NEW ORDER FOR CHEST XRAY NOTED.
[2019-06-17] MEDS: FLUDROCORTISONE ACETATE 0.1 MG TABLET PO SCH (13:47)
--- NOTE | 2019-06-17 14:30 | NUR ---
PATIENT SEEN AND EXAMINED BY DR BLUNT WITH NEW ORDERS AND NOTED
--- NOTE | 2019-06-17 15:58 | NUR ---
DR WELLS NEUROLOGY HERE TO SEE PATIENT WITH NEW ORDERS AND NOTED
--- NOTE | 2019-06-17 16:30 | NUR ---
PATIENT VOIDED IN THE BED JAIMES AND SENT TO THE LAB ORDERED.
--- NOTE | 2019-06-17 17:50 | NUR ---
EATING DINNER FEEDING SELF WITH FAIR APPETITE.
--- NOTE | 2019-06-17 19:35 | NUR ---
Received patient awake in bed, not in any form of distress, alert and oriented x 3. No complaints of dizziness or pain at the moment. Noted per day shift nurse, patient has not had bowel movement x 3 days, offered milk of magnesia to patient however she declined. Bed in low position, locked, side rails up x 3 for safety, call light within reach. Noise and lights subdued. Will continue to monitor.
[2019-06-18] VITALS (7 sets, daily range): BP systolic 125–150; BP diastolic 52–80
[2019-06-18] MEDS: HYDROCODONE/APAP 5-325MG TABLET PO PRN (01:13)
[2019-06-18 05:13] LABS: CORTISOL 19.2 ug/dL (.)
--- NOTE | 2019-06-18 06:00 | NUR ---
Unable to check orthostatic blood pressure patient declines to lie flat on bed.
--- NOTE | 2019-06-18 06:22 | NUR ---
Patient slept intermittently throughout the night. No distress noted. Attended all needs. Ensured safety and comfort.
[2019-06-18 07:02] LABS: CARBON DIOXIDE 30 mmol/L (21-32); CHLORIDE 94 mmol/L (98-107); CREATININE 0.9 mg/dL (0.6-1.3); GLUCOSE 82 mg/dL (74-106); MAGNESIUM 1.8 mg/dL (1.8-2.4); POTASSIUM 4.6 mmol/L (3.5-5.1); UREA NITROGEN, BLOOD 18 mg/dL (7-18); URIC ACID 4.2 mg/dL (2.6-6.0)
[2019-06-18 07:14] LABS: THYROID STIMULATING HORMONE 4.201 mIU/mL (0.358-3.740)
--- NOTE | 2019-06-18 07:15 | NUR ---
Received patient asleep in bed, not in any form of distress. Noted per fast food shift supervisor nurse. Bed in low position, locked, side rails up x 3 for safety, call light within reach. Will continue to monitor. Will continue with plan of care.
[2019-06-18] MEDS: FLUDROCORTISONE ACETATE 0.1 MG TABLET PO SCH (08:55)
[2019-06-18] MEDS: Z GUARD REMEDY PASTE 57 GM TUBE TOP SCH ×2 (08:56→21:06)
--- NOTE | 2019-06-18 10:30 | NUR ---
Pt's orthostatic BP done by PT. Etqvin=313/62, Pwjtkwv=653/80, Standing= 125/74, After gait= 123/74. Pt walked aprox 80 feet.
[2019-06-18 12:06] LABS: A/G RATIO 1.2 (0.7-1.7); ALBUMIN 2.9 g/dL (2.9-4.4); ALPHA-1-GLOBULIN 0.3 g/dL (0.0-0.4); ALPHA-2-GLOBULIN 0.6 g/dL (0.4-1.0); BETA GLOBULIN 0.7 g/dL (0.7-1.3); GAMMA GLOBULIN 0.7 g/dL (0.4-1.8); GLOBULIN, TOTAL 2.4 g/dL (2.2-3.9); M-SPIKE Not Observed g/dL (Not Observed)
--- NOTE | 2019-06-18 16:51 | NUR ---
PATIENT IS RESTING IN BED MORE CALMER TODAY ALERT HAD A BOWEL MOVEMENT WITH GOOD JEFFREY CARE MADE COMFORTABLE ABLE TO MAKE NEEDS KNOWN AT THIS TIME WILL CONTINUE TO OBSERVE AND PROVIDE SAFE AND THERAPEUTIC ENVIRONMENT AT ALL TIMES.
--- NOTE | 2019-06-18 18:00 | NUR ---
PATIENT STATED NOT FELLING WELL UNABLE TO RELATE HOW SHE FEELS SKIN IS WARM AND DRY ALERT AND ORIENTED DENIES FEELING DIZZY VITALS CHECKED BLOOD PRESSURE IS 142/76 HR IS 92 RESP 18 TEMP IS 97.5 O2 SAT IS 98 PERCENT.PATIENT REPOSITIONED REASSURED HOB UP MADE COMFORTABLE WILL CONTINUE TO OBSERVE.
--- NOTE | 2019-06-18 18:43 | NUR ---
PATIENT IS FEELING BETTER STATED FEELS OKAY AT THIS TIME WILL CONTINUE TO OBSERVE.
--- NOTE | 2019-06-18 19:30 | NUR ---
patient received lying in bed. a/ox 4. no signs of acute distress. safety and comfort measures provided. will continue plan of care.
--- NOTE | 2019-06-19 05:37 | NUR ---
patient slept intermittently and confused. no signs of acute distress. safety and comfort measures provided. will endorse care to morning nurse.
[2019-06-19 06:43] LABS: CARBON DIOXIDE 29 mmol/L (21-32); CHLORIDE 94 mmol/L (98-107); CREATININE 0.9 mg/dL (0.6-1.3); GLUCOSE 88 mg/dL (74-106); POTASSIUM 4.1 mmol/L (3.5-5.1); UREA NITROGEN, BLOOD 22 mg/dL (7-18)
[2019-06-19 08:58] LABS: BASOPHILS % (AUTO) 0.3 % (0.0-2.0); EOSINOPHILS # (AUTO) 0.1 K/uL (0.0-0.7); EOSINOPHILS % (AUTO) 1.8 % (0.0-7.0); HEMATOCRIT 33.2 % (31.2-41.9); HEMOGLOBIN 11.2 g/dL (10.9-14.3); LYMPHOCYTES % (AUTO) 25.2 % (20.5-51.5); MEAN CORPUSCULAR HEMOGLOBIN 29.9 uug (24.7-32.8); MEAN CORPUSCULAR HGB CONC 34 g/dL (32.3-35.6); MEAN CORPUSCULAR VOLUME 88.5 fL (75.5-95.3); MONOCYTES # (AUTO) 0.4 K/uL (2.0-10.0); NEUTROPHILS # (AUTO) 2.4 K/uL (1.8-8.9); NEUTROPHILS % (AUTO) 61.7 % (38.5-71.5); PLATELET COUNT (AUTO) 173 K/uL (179-408); RED BLOOD CELL COUNT(AUTO) 3.76 MIL/uL (3.63-4.92); WHITE BLOOD COUNT (AUTO) 3.9 K/uL (3.8-11.8)
[2019-06-19 09:00] VITALS: BP 147/69
[2019-06-19] MEDS: Z GUARD REMEDY PASTE 57 GM TUBE TOP SCH ×2 (09:00→20:29)
[2019-06-19] MEDS: FLUDROCORTISONE ACETATE 0.1 MG TABLET PO SCH (10:04)
[2019-06-19 17:00] VITALS: BP 144/66
--- NOTE | 2019-06-19 19:30 | NUR ---
patient received in bed doing crossword puzzles. no signs of acute distress. v/s stable. will continue plan of care.
[2019-06-19 20:00] VITALS: BP 143/87
[2019-06-20 05:11] LABS: ALDOSTERONE 13.8 ng/dL (0.0-30.0)
--- NOTE | 2019-06-20 05:34 | NUR ---
patient slept intermittently. no signs of acute distress at this time. safety and comfort measures provided. patient received 1000ml of water in morning with morning shift per report and 200 ml on my shift. per lab cortisol levels can only be drawn in the AM and PM. Will endorse to the morning shift to follow up Dr. Khan on which labs he would like to be drawn for cortisol.
[2019-06-20 05:44] VITALS: BP 122/77
[2019-06-20 06:38] LABS: BASOPHILS % (AUTO) 0.3 % (0.0-2.0); EOSINOPHILS # (AUTO) 0.1 K/uL (0.0-0.7); EOSINOPHILS % (AUTO) 1.7 % (0.0-7.0); HEMATOCRIT 32.7 % (31.2-41.9); HEMOGLOBIN 11.2 g/dL (10.9-14.3); LYMPHOCYTES # (AUTO) 0.8 K/uL (20.0-40.0); MEAN CORPUSCULAR HEMOGLOBIN 30.3 uug (24.7-32.8); MEAN CORPUSCULAR HGB CONC 34 g/dL (32.3-35.6); MEAN CORPUSCULAR VOLUME 88.2 fL (75.5-95.3); MONOCYTES # (AUTO) 0.5 K/uL (2.0-10.0); MONOCYTES % (AUTO) 11.4 % (0.0-11.0); NEUTROPHILS # (AUTO) 2.7 K/uL (1.8-8.9); NEUTROPHILS % (AUTO) 67.6 % (38.5-71.5); PLATELET COUNT (AUTO) 175 K/uL (179-408); RED BLOOD CELL COUNT(AUTO) 3.71 MIL/uL (3.63-4.92)
[2019-06-20 06:52] LABS: ALANINE AMINOTRANSFERASE 14 U/L (14-59); ALKALINE PHOSPHATASE 63 U/L (50-136); ASPARTATE AMINOTRANSFERASE 18 U/L (15-37); BILIRUBIN,TOTAL 0.5 mg/dL (0.2-1.0); CARBON DIOXIDE 29 mmol/L (21-32); CHLORIDE 96 mmol/L (98-107); CREATININE 0.8 mg/dL (0.6-1.3); GLUCOSE 88 mg/dL (74-106); PHOSPHOROUS 3.9 mg/dL (2.5-4.9); POTASSIUM 3.9 mmol/L (3.5-5.1); TOTAL PROTEIN, SERUM 5.5 g/dL (6.4-8.2); UREA NITROGEN, BLOOD 25 mg/dL (7-18)
--- NOTE | 2019-06-20 07:30 | NUR ---
Patient calm and comfortable ; with no signs of distress ; patient call light with in reach.and safety devices in place.
[2019-06-20] MEDS: Z GUARD REMEDY PASTE 57 GM TUBE TOP SCH (08:32)
[2019-06-20] MEDS: FLUDROCORTISONE ACETATE 0.1 MG TABLET PO SCH (08:32)
[2019-06-20 10:06] LABS: METHYLMALONIC ACID 217 nmol/L (0-378)
[2019-06-20 11:04] VITALS: BP 157/78
[2019-06-20 14:07] LABS: RENIN 2.205 ng/mL/hr (0.167-5.380)
[2019-06-20 15:10] VITALS: BP 148/74
--- NOTE | 2019-06-20 19:01 | NUR ---
Patient discharged to ARU; report given to CAROLINA Dodd. Belongings and valuables given to Aru. Patient calm and comfortable with no signs of distress.
[2019-06-20] MEDS ORDERED: FLUD0.1T PO (19:56)
[2019-06-20] MEDS ORDERED: HYDR-3326 PO (19:56)
[2019-06-20] MEDS ORDERED: MAGN400O6 PO (19:56)
[2019-06-20] MEDS ORDERED: ACET650T10 PO (19:56)
== END 2019-06-20 18:55 | DRG 73 ==
LOC: ER 14:25 → TELE3 15:50 → MEDSURG3 06-19 18:10
PROVIDERS: ADMIT Nurse Practitioner Acute Care; ATTEND Nurse Practitioner Acute Care
DX: G90.8 Other disorders of autonomic nervous system (principal); G93.41 Metabolic encephalopathy; E87.1 Hypo-osmolality and hyponatremia; I50.32 Chronic diastolic (congestive) heart failure; E27.40 Unspecified adrenocortical insufficiency; E44.0 Moderate protein-calorie malnutrition; D68.59 Other primary thrombophilia; R55 Syncope and collapse; I49.1 Atrial premature depolarization; I11.0 Hypertensive heart disease with heart failure; Z90.49 Acquired absence of other specified parts of digestive tract; Z85.038 Personal history of other malignant neoplasm of large intestine; I25.10 Atherosclerotic heart disease of native coronary artery without angina pectoris; D63.8 Anemia in other chronic diseases classified elsewhere; Z86.73 Personal history of transient ischemic attack (TIA), and cerebral infarction without residual deficits; E86.0 Dehydration; D69.6 Thrombocytopenia, unspecified; K58.9 Irritable bowel syndrome, unspecified; E11.42 Type 2 diabetes mellitus with diabetic polyneuropathy; M06.9 Rheumatoid arthritis, unspecified; E86.1 Hypovolemia; G31.84 Mild cognitive impairment of uncertain or unknown etiology; R23.3 Spontaneous ecchymoses; Z79.899 Other long term (current) drug therapy
CPT/HCPCS: 36415; 70030-TC; 70450; 71045; 72125; 82088; 82533; 83735; 83921; 84100; 84155; 84165; 84244; 84300; 84443; 84550; 85025; 85610; 87086; 93005; 93307; 97110; 97116; 97530; A4663; C1758; G0378; J3475; J7050

== ENCOUNTER 2019-06-20 14:50 | Inpatient (IN) | payer MEDICARE, BC ==
[~2019-06-20] VITALS: Ht 157.5 cm; Wt 56.7 kg
[~2019-06-20 14:50] MED LIST changes: -FURO-152 PO; -LOSA50TA39 PO
[2019-06-20] MEDS ORDERED: HYDR-3326 PO (19:56)
[2019-06-20] MEDS ORDERED: FLUD0.1T PO (19:56)
[2019-06-20] MEDS ORDERED: ACET650T10 PO (19:56)
[2019-06-20] MEDS ORDERED: MAGN400O6 PO (19:56)
[2019-06-20 20:42] VITALS: BP 158/71
[2019-06-20] MEDS ORDERED: MAGNESIUM HYDROXIDE 30 ML LIQUID UDC PO PRN (21:00)
[2019-06-20] MEDS ORDERED: HYDROCODONE/APAP 5-325MG TABLET PO PRN (21:00)
[2019-06-20] MEDS: METOPROLOL TARTRATE 25 MG TABLET PO SCH (21:44)
--- NOTE | 2019-06-21 03:58 | NUR ---
Admitted from [facility] an 89 yr old female with admitting diagnosis of acute metabolic encephalopathy, deconditioning and syncope. AAox3-4 with periods of forgetfulness at times. Vital signs taken and recorded. BP 158/71 HR 99 resp 22 Temp 98 pulse ox 97% on RA. Dr Mauro aware of patient's admission. Meds reconcile. Denies any pain nor any discomfort. Skin intact, left hip bruise noted and bruise also noted on scalp area, healed. Redness noted on sacral area. Needs attended. Tolerated po meds well without difficulty. Incontinent of bowel and bladder. BM noted this shift. Fall precautions maintained. Siderails up for safety. Dr Foley also aware of patient's admission to rehab. Hx of CHF, Afib, Aflutter, IBS, HTN Chronic back pain, Anemia, Hemicolectomy, Hyponatremia. Will monitor patient.
[2019-06-21 05:57] VITALS: BP 139/70
[2019-06-21 08:14] VITALS: BP 165/84
[2019-06-21] MEDS: METOPROLOL TARTRATE 25 MG TABLET PO SCH ×2 (08:46→20:42)
[2019-06-21] MEDS: ENSURE ENLIVE (VAN) 240 ML LIQUID PO SCH (08:47)
[2019-06-21] MEDS: FAMOTIDINE 20 MG TABLET PO SCH (08:47)
[2019-06-21] MEDS: ASPIRIN EC 81 MG TABLET.DR PO SCH (08:47)
[2019-06-21] MEDS: MULTIVITAMINS,THERAPEUTIC TABLET PO SCH (08:47)
[2019-06-21] MEDS: FLUDROCORTISONE ACETATE 0.1 MG TABLET PO SCH (08:47)
--- NOTE | 2019-06-21 11:50 | NUR ---
Received patient awake in bed. Continue therapy for ambulation and ADL ability. tolerated well. Continue fluid restriction for 1200 ml for low sodium. not in distress. will continue monitor
[2019-06-21 18:15] VITALS: BP 125/66
[2019-06-21 20:31] VITALS: BP 140/80
--- NOTE | 2019-06-22 00:35 | NUR ---
Received pt at the beginning of shift resting in bed. Family at bedside. No acute distress noted. Denies pain/discomfort. Due med given as ordered. Safety measures maintained. Call light and personal belongings within reach. Will continue to monitor.
[2019-06-22 06:38] VITALS: BP 145/78
[2019-06-22 06:39] LABS: BASOPHILS % (AUTO) 0.5 % (0.0-2.0); EOSINOPHILS % (AUTO) 1.2 % (0.0-7.0); HEMATOCRIT 35.3 % (31.2-41.9); LYMPHOCYTES # (AUTO) 0.9 K/uL (20.0-40.0); LYMPHOCYTES % (AUTO) 25.6 % (20.5-51.5); MEAN CORPUSCULAR HEMOGLOBIN 30.1 uug (24.7-32.8); MEAN CORPUSCULAR HGB CONC 34 g/dL (32.3-35.6); MEAN CORPUSCULAR VOLUME 88.9 fL (75.5-95.3); MONOCYTES # (AUTO) 0.5 K/uL (2.0-10.0); MONOCYTES % (AUTO) 13.4 % (0.0-11.0); NEUTROPHILS % (AUTO) 59.3 % (38.5-71.5); PLATELET COUNT (AUTO) 188 K/uL (179-408); RED BLOOD CELL COUNT(AUTO) 3.98 MIL/uL (3.63-4.92); WHITE BLOOD COUNT (AUTO) 3.4 K/uL (3.8-11.8)
[2019-06-22 06:55] LABS: ALANINE AMINOTRANSFERASE 27 U/L (14-59); ALKALINE PHOSPHATASE 76 U/L (50-136); ASPARTATE AMINOTRANSFERASE 24 U/L (15-37); BILIRUBIN,TOTAL 0.6 mg/dL (0.2-1.0); CARBON DIOXIDE 30 mmol/L (21-32); CHLORIDE 95 mmol/L (98-107); CREATININE 0.9 mg/dL (0.6-1.3); GLUCOSE 84 mg/dL (74-106); MAGNESIUM 1.9 mg/dL (1.8-2.4); PHOSPHOROUS 3.4 mg/dL (2.5-4.9); POTASSIUM 3.8 mmol/L (3.5-5.1); TOTAL PROTEIN, SERUM 5.6 g/dL (6.4-8.2); UREA NITROGEN, BLOOD 22 mg/dL (7-18)
[2019-06-22] MEDS: FAMOTIDINE 20 MG TABLET PO SCH (08:35)
[2019-06-22] MEDS: FLUDROCORTISONE ACETATE 0.1 MG TABLET PO SCH (08:35)
[2019-06-22] MEDS: MULTIVITAMINS,THERAPEUTIC TABLET PO SCH (08:35)
[2019-06-22] MEDS: ASPIRIN EC 81 MG TABLET.DR PO SCH (08:35)
[2019-06-22] MEDS: METOPROLOL TARTRATE 25 MG TABLET PO SCH ×2 (08:36→20:35)
[2019-06-22] MEDS: ENSURE ENLIVE (VAN) 240 ML LIQUID PO SCH (08:36)
[2019-06-22 08:44] VITALS: BP 166/75
--- NOTE | 2019-06-22 08:54 | NUR ---
INTERDISCIPLINARY TEAM CONFERENCE
--- NOTE | 2019-06-22 09:40 | NUR ---
Patient noted resting in bed, easily arouses to voice, took all AM medications, no complaints of pain, no signs of distress noted, call light in reach, bed locked and in lowest position, all needs met
[2019-06-22 16:41] VITALS: BP 140/73
[2019-06-22 21:34] VITALS: BP 163/81
--- NOTE | 2019-06-22 21:46 | NUR ---
Received pt resting in bed. AAO x2-3, noted to be forgetful. No acute distress noted. Denies pain/ discomfort. Due med given as ordered. On 1200mL fluid restriction. Safety measures maintained. Call light and personal belongings within reach. Will continue to monitor.
[2019-06-23] MEDS ORDERED: hydrALAZINE HCL 50 MG TABLET PO SCH (06:30)
[2019-06-23 06:39] VITALS: BP 172/76
--- NOTE | 2019-06-23 07:02 | NUR ---
Pt's BP this morning is 172/76, HR 72. Pt asymptomatic. Notified Susi CALABRESE. New order for hydralazine 50 mg ONCE. Carried out order. Will continue to monitor.
--- NOTE | 2019-06-23 08:04 | NUR ---
Patient noted resting in bed, easily arouses to voice easily, took all AM medications, no complaints of pain, no signs of distress noted, call light in reach, bed locked and in lowest position, all needs met
[2019-06-23] MEDS: FAMOTIDINE 20 MG TABLET PO SCH (08:47)
[2019-06-23] MEDS: FLUDROCORTISONE ACETATE 0.1 MG TABLET PO SCH (08:47)
[2019-06-23] MEDS: MULTIVITAMINS,THERAPEUTIC TABLET PO SCH (08:47)
[2019-06-23] MEDS: ASPIRIN EC 81 MG TABLET.DR PO SCH (08:47)
[2019-06-23] MEDS: METOPROLOL TARTRATE 25 MG TABLET PO SCH ×2 (08:48→21:54)
[2019-06-23] MEDS: ENSURE ENLIVE (VAN) 240 ML LIQUID PO SCH (08:54)
[2019-06-23 09:48] VITALS: BP 161/62
[2019-06-23] MEDS ORDERED: LORAZEPAM 0.5 MG TABLET PO PRN (13:30)
--- NOTE | 2019-06-23 14:23 | NUR ---
INDIVIDUALIZED OVERALL PLAN OF CARE
[2019-06-23 16:00] VITALS: BP 156/76
[2019-06-23 20:23] VITALS: BP 135/65
[2019-06-24] MEDS: ACETAMINOPHEN 325 MG TABLET PO PRN (00:54)
[2019-06-24 04:20] VITALS: BP 154/70
--- NOTE | 2019-06-24 05:32 | NUR ---
No major events last night, pt had a brief episode of sundowning but was comforted and able to sleep after. pt received frequent rounding, bed alarm is on, call light within reach
[2019-06-24 08:26] VITALS: BP 145/77
[2019-06-24] MEDS: FAMOTIDINE 20 MG TABLET PO SCH (08:44)
[2019-06-24] MEDS: MULTIVITAMINS,THERAPEUTIC TABLET PO SCH (08:44)
[2019-06-24] MEDS: FLUDROCORTISONE ACETATE 0.1 MG TABLET PO SCH (08:44)
[2019-06-24] MEDS: ASPIRIN EC 81 MG TABLET.DR PO SCH (08:45)
[2019-06-24] MEDS: METOPROLOL TARTRATE 25 MG TABLET PO SCH ×2 (08:45→20:41)
[2019-06-24] MEDS: FLUTICASONE PROP NASAL SPRAY 16 GM BOTTLE NS PRN (08:47)
[2019-06-24] MEDS: ENSURE ENLIVE (VAN) 240 ML LIQUID PO SCH (09:08)
--- NOTE | 2019-06-24 12:11 | NUR ---
Received patient awake in stable condition. Continue on ativan PRN for anxiety. Continue on fluid restriction 1200 ml for electrolyte imbalance. tolerated well. not in distress. Continue therapy for ambulation and ADL ability. will continue monitor
--- NOTE | 2019-06-24 14:08 | NUR ---
Patient seen and examined by GUANAKITO Rodriguez and MD Khan with no new order. Sodium trending low 129, chloride 97L, Calcium 8.7 L MD aware. not in distress. will continue monitor
[2019-06-24 15:35] VITALS: BP 136/62
--- NOTE | 2019-06-24 19:32 | NUR ---
Sodium 88 low. DNP and aware. Continue monitoring Addendum: 06/24/19 at 1934 by ERIK DIALLO RN RN ERROR
[2019-06-24 21:11] VITALS: BP 163/85
[2019-06-25 04:20] VITALS: BP 165/84
--- NOTE | 2019-06-25 05:58 | NUR ---
Pt. resting in bed alert oriented x3. Pt. slept intermittently throughout night. Pt. had short episode of sundowning. Re oriented pt. to reality and calmed pt. down. Pt. able to sleep rest of night after episode. Strict fluid restriction of [address] Safety measures in place. Call light within reach. Will endorse to AM nurse.
--- NOTE | 2019-06-25 06:20 | NUR ---
Pt's BP this morning is 165/84, HR 86. Pt asymptomatic. Pt. denies feelings of dizziness, weakness, headache, lightheadedness. Pt.'s skin temperature is normal and dry. Called [facility] who paged Susi CALABRESE. No call back from Susi CALABRESE.
--- NOTE | 2019-06-25 06:56 | NUR ---
Rechecked BP 162/93 HR 87. Pt. is asymptomatic. No call back from GUANAKITO Goldman. No new orders. Will endorse to AM nurse.
[2019-06-25 07:40] VITALS: BP 159/72
[2019-06-25] MEDS: ASPIRIN EC 81 MG TABLET.DR PO SCH (08:06)
[2019-06-25] MEDS: FLUTICASONE PROP NASAL SPRAY 16 GM BOTTLE NS PRN (08:06)
[2019-06-25] MEDS: FAMOTIDINE 20 MG TABLET PO SCH (08:06)
[2019-06-25] MEDS: MULTIVITAMINS,THERAPEUTIC TABLET PO SCH (08:06)
[2019-06-25] MEDS: FLUDROCORTISONE ACETATE 0.1 MG TABLET PO SCH (08:07)
[2019-06-25] MEDS: METOPROLOL TARTRATE 25 MG TABLET PO SCH ×2 (08:08→20:05)
[2019-06-25] MEDS: ENSURE ENLIVE (VAN) 240 ML LIQUID PO SCH (08:13)
--- NOTE | 2019-06-25 09:05 | NUR ---
Patient awake, alert, not in any form distress. She denies any pain or discomfort at this time. Due medications administered and tolerated well. Assisted with her needs. Call light and frequently used items placed within reach.
--- NOTE | 2019-06-25 11:46 | NUR ---
Patient seen by Dr. Ross Pérez, informed MD regarding episode of increased BP as endorsed by power and recovery shift engineer nurse. MD gave order for Norvasc 5mg PO daily.
[2019-06-25] MEDS: AMLODIPINE 5 MG TABLET PO SCH (11:58)
[2019-06-25 16:28] VITALS: BP 156/68
[2019-06-25 19:34] VITALS: BP 130/64
[2019-06-25] MEDS: ACETAMINOPHEN 325 MG TABLET PO PRN (20:05)
--- NOTE | 2019-06-25 20:51 | NUR ---
Received pt resting in bed. AAO x3. No acute distress noted. Denies pain or discomfort. Due med given as ordered. Safety measures maintained. Call light and personal belongings within reach. Will continue to monitor.
[2019-06-26 04:05] VITALS: BP 168/73
--- NOTE | 2019-06-26 04:49 | NUR ---
Pt's BP 168/73. Asymptomatic. Paged Russell Rodriguez DNP. New order for hydralazine 10 mg Q8H PRN for SBP >160. Will carry out order. Will continue to monitor.
[2019-06-26] MEDS: hydrALAZINE HCL 10 MG TABLET PO PRN (05:21)
[2019-06-26] MEDS ORDERED: hydrALAZINE HCL 10 MG TABLET ONE (05:22)
[2019-06-26] MEDS ORDERED: FLUTICASONE PROP NASAL SPRAY 16 GM BOTTLE NS PRN (07:42)
[2019-06-26 07:47] LABS: CARBON DIOXIDE 25 mmol/L (21-32); CHLORIDE 93 mmol/L (98-107); CREATININE 0.8 mg/dL (0.6-1.3); GLUCOSE 97 mg/dL (74-106); MAGNESIUM 1.7 mg/dL (1.8-2.4); PHOSPHOROUS 2.7 mg/dL (2.5-4.9); POTASSIUM 3.2 mmol/L (3.5-5.1); UREA NITROGEN, BLOOD 12 mg/dL (7-18); URIC ACID 3.8 mg/dL (2.6-6.0)
[2019-06-26 07:50] VITALS: BP 141/71
[2019-06-26] MEDS: METOPROLOL TARTRATE 25 MG TABLET PO SCH ×2 (08:47→20:33)
[2019-06-26] MEDS: FAMOTIDINE 20 MG TABLET PO SCH (08:47)
[2019-06-26] MEDS: AMLODIPINE 5 MG TABLET PO SCH (08:48)
[2019-06-26] MEDS: MULTIVITAMINS,THERAPEUTIC TABLET PO SCH (08:48)
[2019-06-26] MEDS: FLUDROCORTISONE ACETATE 0.1 MG TABLET PO SCH (08:49)
[2019-06-26] MEDS: ASPIRIN EC 81 MG TABLET.DR PO SCH (08:49)
[2019-06-26] MEDS: ENSURE ENLIVE (VAN) 240 ML LIQUID PO SCH (08:50)
[2019-06-26] MEDS ORDERED: IV NORMAL SALINE 500 ML IV ONE (09:00)
[2019-06-26] MEDS: SODIUM CHLORIDE 1,000 MG TABLET PO SCH ×3 (09:04→17:19)
--- NOTE | 2019-06-26 09:30 | NUR ---
Received pt. in bed in no distress. A/OX3-4 verbally responsive and able to make her needs known. No new skin condition. All needs attended and met promptly. All due medications given as ordered and tolerated well. Safety measures in place. Call light and all frequently used items within pt. reach. Will continue to monitor accordingly.
--- NOTE | 2019-06-26 10:00 | NUR ---
Dr. Henriquez came and seen the pt. MD with order to start IV and infuse NS 0.9% 500 ml bolus. Started PIV on LFA 22g x 1 attempt. Pt. tolerated procedure well. Secured with tegaderm.
[2019-06-26] MEDS ORDERED: MAGNESIUM OXIDE 400 MG TABLET PO ONE (11:00)
[2019-06-26] MEDS ORDERED: POTASSIUM CHLORIDE 20 MEQ TAB.PRT.SR PO ONE (11:00)
--- NOTE | 2019-06-26 11:00 | NUR ---
Dr. Ross Garcia. on-site. Aware of low mg and low K level. MD with new order for MagOx 400 mg PO x 1, KCL 40 meq PO x 1. Pt. made aware and administered as ordered.
[2019-06-26 16:23] VITALS: BP 119/71
--- NOTE | 2019-06-26 18:48 | NUR ---
End of shift note: No significant change during this shift. All needs attended and met promptly. Safety measures in placed. Bed in low position, brake on, side rails up x2 as an enabler. Call light and all frequently used items within pt. reach. Will endorse to next shift accordingly.
[2019-06-26 19:31] VITALS: BP 149/72
[2019-06-27 04:54] VITALS: BP 157/82
[2019-06-27 06:41] LABS: BASOPHILS % (AUTO) 0.5 % (0.0-2.0); EOSINOPHILS % (AUTO) 1.1 % (0.0-7.0); HEMATOCRIT 34.9 % (31.2-41.9); HEMOGLOBIN 11.8 g/dL (10.9-14.3); LYMPHOCYTES # (AUTO) 0.6 K/uL (20.0-40.0); LYMPHOCYTES % (AUTO) 19.7 % (20.5-51.5); MEAN CORPUSCULAR HEMOGLOBIN 29.9 uug (24.7-32.8); MEAN CORPUSCULAR HGB CONC 34 g/dL (32.3-35.6); MEAN CORPUSCULAR VOLUME 88.6 fL (75.5-95.3); MONOCYTES # (AUTO) 0.3 K/uL (2.0-10.0); MONOCYTES % (AUTO) 10.9 % (0.0-11.0); NEUTROPHILS # (AUTO) 2.1 K/uL (1.8-8.9); NEUTROPHILS % (AUTO) 67.8 % (38.5-71.5); PLATELET COUNT (AUTO) 178 K/uL (179-408); RED BLOOD CELL COUNT(AUTO) 3.95 MIL/uL (3.63-4.92)
[2019-06-27 07:15] LABS: CARBON DIOXIDE 25 mmol/L (21-32); CHLORIDE 99 mmol/L (98-107); CREATININE 0.9 mg/dL (0.6-1.3); GLUCOSE 92 mg/dL (74-106); POTASSIUM 3.6 mmol/L (3.5-5.1); UREA NITROGEN, BLOOD 12 mg/dL (7-18)
[2019-06-27] MEDS: MULTIVITAMINS,THERAPEUTIC TABLET PO SCH (08:45)
[2019-06-27] MEDS: AMLODIPINE 5 MG TABLET PO SCH (08:45)
[2019-06-27] MEDS: ASPIRIN EC 81 MG TABLET.DR PO SCH (08:45)
[2019-06-27] MEDS: FLUDROCORTISONE ACETATE 0.1 MG TABLET PO SCH (08:45)
[2019-06-27] MEDS: SODIUM CHLORIDE 1,000 MG TABLET PO SCH ×3 (08:45→16:19)
[2019-06-27] MEDS: FAMOTIDINE 20 MG TABLET PO SCH (08:45)
[2019-06-27] MEDS: METOPROLOL TARTRATE 25 MG TABLET PO SCH (08:45)
[2019-06-27] MEDS: ENSURE ENLIVE (VAN) 240 ML LIQUID PO SCH (08:52)
--- NOTE | 2019-06-27 16:00 | NUR ---
Pt. requested to d/c IV access on LFA. D/cd PIV 2/2 non-usage and pt. request. Pt. tolerated procedure well.
[2019-06-27 16:43] VITALS: BP 116/68
--- NOTE | 2019-06-27 19:27 | NUR ---
Obtained order for z-guard from Dr. Foley. amenable with order. Order noted and carried out.
[2019-06-27] MEDS ORDERED: Z GUARD REMEDY PASTE 57 GM TUBE TOP PRN (19:30)
--- NOTE | 2019-06-27 19:36 | NUR ---
Patient received in bed, AAO x3-4, sometimes forgetful. Able to make needs known.No acute distress or SOB noted. On room air. No complain of pain at this time. Physical assessment done. Safety measures observed. Fall precaution maintained. Bed in low position, side rails up x2 for safety, brake and alarm on. call light and personal belongings within reach. Continue to monitor.
[2019-06-27 21:34] VITALS: BP 120/60
[2019-06-28 04:00] VITALS: BP 143/65
[2019-06-28 07:29] VITALS: BP 145/71
[2019-06-28] MEDS: AMLODIPINE 5 MG TABLET PO SCH (08:50)
[2019-06-28] MEDS: ASPIRIN EC 81 MG TABLET.DR PO SCH (08:50)
[2019-06-28] MEDS: FAMOTIDINE 20 MG TABLET PO SCH (08:50)
[2019-06-28] MEDS: MULTIVITAMINS,THERAPEUTIC TABLET PO SCH (08:50)
[2019-06-28] MEDS: SODIUM CHLORIDE 1,000 MG TABLET PO SCH ×3 (08:51→18:43)
[2019-06-28] MEDS: FLUDROCORTISONE ACETATE 0.1 MG TABLET PO SCH (08:51)
[2019-06-28] MEDS: ENSURE ENLIVE (VAN) 240 ML LIQUID PO SCH (08:58)
--- NOTE | 2019-06-28 13:15 | NUR ---
INTERDISCIPLINARY TEAM CONFERENCE
[2019-06-28 16:38] VITALS: BP 153/79
--- NOTE | 2019-06-28 19:25 | NUR ---
Patient received in bed, AAO x3-4, sometimes forgetful. Able to make needs known.No acute distress or SOB noted. On room air. No complain of pain at this time. Physical assessment done. Placed order for wound care consult for redness and dryness of inner side of thighs. Safety measures observed. Fall precaution maintained. Bed in low position, side rails up x2 for safety, brake and alarm on. call light and personal belongings within reach. Continue to monitor.
[2019-06-28 20:16] VITALS: BP 140/75
[2019-06-29 04:00] VITALS: BP 150/75
[2019-06-29 08:10] VITALS: BP 158/84
[2019-06-29] MEDS: FAMOTIDINE 20 MG TABLET PO SCH (08:39)
[2019-06-29] MEDS: SODIUM CHLORIDE 1,000 MG TABLET PO SCH ×3 (08:39→17:45)
[2019-06-29] MEDS: MULTIVITAMINS,THERAPEUTIC TABLET PO SCH (08:39)
[2019-06-29] MEDS: ASPIRIN EC 81 MG TABLET.DR PO SCH (08:39)
[2019-06-29] MEDS: FLUDROCORTISONE ACETATE 0.1 MG TABLET PO SCH (08:40)
[2019-06-29] MEDS: AMLODIPINE 5 MG TABLET PO SCH (08:40)
[2019-06-29] MEDS: ENSURE ENLIVE (VAN) 240 ML LIQUID PO SCH (08:40)
--- NOTE | 2019-06-29 09:08 | NUR ---
Patient noted sitting up in bed eating breakfast, no complaints of pain at this time, no signs of distress noted, call light in reach, bed locked and in lowest position, took all AM medications, all needs met
[2019-06-29 16:39] VITALS: BP 136/67
--- NOTE | 2019-06-29 19:30 | NUR ---
PATIENT ALERT AND ORIENTED X 4. IN BED WATCHING TV. NO C/O PAIN OR SOB AT THIS TIME. PATIENT NOTED TO BE ANXIOUS ABOUT WANTING TO GO HOME. OFFERED ANXIETY MEDICATION AND PATIENT REFUSED. SIDE RAILS UP BILATERALLY FOR SAFETY. CALL LIGHT AND FREQUENTLY USED ITEMS WITHIN REACH. WILL CONTINUE TO MONITOR.
[2019-06-29 20:52] VITALS: BP 119/68
[2019-06-30 05:12] VITALS: BP 166/84
[2019-06-30] MEDS: hydrALAZINE HCL 10 MG TABLET PO PRN (06:10)
[2019-06-30 07:34] LABS: BASOPHILS % (AUTO) 0.5 % (0.0-2.0); EOSINOPHILS % (AUTO) 1.2 % (0.0-7.0); HEMATOCRIT 33.3 % (31.2-41.9); HEMOGLOBIN 11.3 g/dL (10.9-14.3); LYMPHOCYTES # (AUTO) 0.9 K/uL (20.0-40.0); LYMPHOCYTES % (AUTO) 28.3 % (20.5-51.5); MEAN CORPUSCULAR HEMOGLOBIN 29.7 uug (24.7-32.8); MEAN CORPUSCULAR HGB CONC 34 g/dL (32.3-35.6); MEAN CORPUSCULAR VOLUME 87.9 fL (75.5-95.3); MONOCYTES # (AUTO) 0.3 K/uL (2.0-10.0); MONOCYTES % (AUTO) 10.6 % (0.0-11.0); NEUTROPHILS # (AUTO) 1.9 K/uL (1.8-8.9); NEUTROPHILS % (AUTO) 59.4 % (38.5-71.5); PLATELET COUNT (AUTO) 209 K/uL (179-408); RED BLOOD CELL COUNT(AUTO) 3.79 MIL/uL (3.63-4.92); WHITE BLOOD COUNT (AUTO) 3.3 K/uL (3.8-11.8)
[2019-06-30 07:57] VITALS: BP 128/62
--- NOTE | 2019-06-30 08:00 | NUR ---
patient noted resting in bed with eyes closed, no facial cues of pain noted, no signs of distress, call light in reach, bed locked and in lowest position, all needs met at this time
[2019-06-30 08:48] LABS: ALANINE AMINOTRANSFERASE 20 U/L (14-59); ALKALINE PHOSPHATASE 98 U/L (50-136); ASPARTATE AMINOTRANSFERASE 16 U/L (15-37); BILIRUBIN,TOTAL 0.4 mg/dL (0.2-1.0); CARBON DIOXIDE 28 mmol/L (21-32); CHLORIDE 99 mmol/L (98-107); CREATININE 0.8 mg/dL (0.6-1.3); GLUCOSE 91 mg/dL (74-106); MAGNESIUM 1.7 mg/dL (1.8-2.4); PHOSPHOROUS 2.8 mg/dL (2.5-4.9); POTASSIUM 3.6 mmol/L (3.5-5.1); TOTAL PROTEIN, SERUM 5.7 g/dL (6.4-8.2); UREA NITROGEN, BLOOD 19 mg/dL (7-18)
[2019-06-30] MEDS: FLUDROCORTISONE ACETATE 0.1 MG TABLET PO SCH (09:15)
[2019-06-30] MEDS: FAMOTIDINE 20 MG TABLET PO SCH (09:15)
[2019-06-30] MEDS: MULTIVITAMINS,THERAPEUTIC TABLET PO SCH (09:15)
[2019-06-30] MEDS: SODIUM CHLORIDE 1,000 MG TABLET PO SCH ×3 (09:16→17:41)
[2019-06-30] MEDS: ASPIRIN EC 81 MG TABLET.DR PO SCH (09:16)
[2019-06-30] MEDS: ENSURE ENLIVE (VAN) 240 ML LIQUID PO SCH (09:16)
[2019-06-30] MEDS: AMLODIPINE 5 MG TABLET PO SCH (09:16)
[2019-06-30] MEDS ORDERED: MAGNESIUM OXIDE 400 MG TABLET PO ONE (13:30)
[2019-06-30 15:56] VITALS: BP 104/50
--- NOTE | 2019-06-30 18:12 | NUR ---
New orders per MD Hardy (family request) 1) BMP, CBC, Magnesium, Phosphorous, XR of ribs on left side with chest X-Ray, XR of soft tissue Neck
--- NOTE | 2019-06-30 20:46 | NUR ---
Received pt resting in bed and watching tv. AAO x3 with episodes of forgetfulness noted. No acute distress noted. Denies pain/ discomfort. Cleaned and diaper changed. Pt made comfortable. Safety measures maintained. Call light and personal belongings within reach. Will continue to monitor.
[2019-06-30 20:55] VITALS: BP 129/66
[2019-07-01 04:00] VITALS: BP 150/74
[2019-07-01 07:13] LABS: BASOPHILS % (AUTO) 0.6 % (0.0-2.0); EOSINOPHILS # (AUTO) 0.1 K/uL (0.0-0.7); EOSINOPHILS % (AUTO) 1.7 % (0.0-7.0); HEMATOCRIT 31.9 % (31.2-41.9); HEMOGLOBIN 10.9 g/dL (10.9-14.3); LYMPHOCYTES # (AUTO) 1.1 K/uL (20.0-40.0); MEAN CORPUSCULAR HEMOGLOBIN 30.4 uug (24.7-32.8); MEAN CORPUSCULAR HGB CONC 34 g/dL (32.3-35.6); MEAN CORPUSCULAR VOLUME 88.5 fL (75.5-95.3); MONOCYTES # (AUTO) 0.4 K/uL (2.0-10.0); MONOCYTES % (AUTO) 11.2 % (0.0-11.0); NEUTROPHILS % (AUTO) 56.5 % (38.5-71.5); PLATELET COUNT (AUTO) 218 K/uL (179-408); WHITE BLOOD COUNT (AUTO) 3.5 K/uL (3.8-11.8)
[2019-07-01 07:23] LABS: CARBON DIOXIDE 29 mmol/L (21-32); CHLORIDE 99 mmol/L (98-107); CREATININE 0.9 mg/dL (0.6-1.3); GLUCOSE 86 mg/dL (74-106); MAGNESIUM 1.9 mg/dL (1.8-2.4); PHOSPHOROUS 2.9 mg/dL (2.5-4.9); POTASSIUM 3.7 mmol/L (3.5-5.1); UREA NITROGEN, BLOOD 23 mg/dL (7-18)
[2019-07-01] MEDS: FLUDROCORTISONE ACETATE 0.1 MG TABLET PO SCH (08:30)
[2019-07-01] MEDS: FAMOTIDINE 20 MG TABLET PO SCH (08:30)
[2019-07-01] MEDS: AMLODIPINE 5 MG TABLET PO SCH (08:30)
[2019-07-01] MEDS: MULTIVITAMINS,THERAPEUTIC TABLET PO SCH (08:30)
[2019-07-01] MEDS: ENSURE ENLIVE (VAN) 240 ML LIQUID PO SCH (08:30)
[2019-07-01] MEDS: ASPIRIN EC 81 MG TABLET.DR PO SCH (08:30)
[2019-07-01] MEDS: SODIUM CHLORIDE 1,000 MG TABLET PO SCH ×3 (08:30→16:59)
[2019-07-01 08:57] VITALS: BP 175/77
--- NOTE | 2019-07-01 10:21 | NUR ---
Patient noted using the restroom, no facial cues of pain noted, no signs of distress, call light in reach, took all am medications, bed locked and in lowest position, all needs met at this time, MD Hardy orders to arrange follow up appointment for OBGYN for uterus prolapse
[2019-07-01 12:06] LABS: *ANTI-SCLERODERMA-70 AB <0.2 AI (0.0-0.9); *SJOGREN'S ANTI-SS-A <0.2 AI (0.0-0.9); *SJOGREN'S ANTI-SS-B <0.2 AI (0.0-0.9); *SMITH ANTIBODIES <0.2 AI (0.0-0.9); ANTI-DNA(DS) AB, QN 1 IU/mL (0-9)
--- NOTE | 2019-07-01 15:09 | NUR ---
WOUND CARE CONSULT: PT PRESENTS WITH RASH TO PERINEUM AND GROIN AREAS, PRESENT ON ADMISSION. PT ALSO NOTED TO HAVE SKIN LESION TO RT INNER BUTTOCK. DEFER TO MD FOR RT INNER BUTTOCK LESION. PT IS INCONTINENT. RECOMMENDATIONS MADE FOR SKIN PROTECTION AND CARE OF RASH. DISCUSSED WITH NURSING STAFF. PT HAS VERY FRAGILE SKIN. WILL SEE PRN. IN AGREEMENT WITH PLAN OF CARE. Addendum: 07/01/19 at 1511 by DANNY ELLIS RN Amended: Links added.
[2019-07-01] MEDS: CLOTRIMAZOLE 1% CREAM 30 GM TUBE TOP SCH (17:00)
[2019-07-01 17:03] VITALS: BP 134/62
[2019-07-01 19:32] VITALS: BP 117/63
[2019-07-02 05:40] VITALS: BP 153/79
--- NOTE | 2019-07-02 05:42 | NUR ---
End of the shift note Patient was stable throughout the shift and has a good sleep last night. No acute distress or SOB noted. On room air. No Complain of pain. Physical assessment done. Safety measures observed. Fall precaution maintained. All needs attended promptly. Bed in low position, side rails up x2 for safety, brake and alarm on. Call light and personal belongings within reach. Continue to monitor and will endorse to the day shift nurse accordingly.
[2019-07-02 07:30] VITALS: BP 152/77
[2019-07-02 08:08] LABS: BASOPHILS % (AUTO) 0.5 % (0.0-2.0); EOSINOPHILS % (AUTO) 0.8 % (0.0-7.0); HEMATOCRIT 30.8 % (31.2-41.9); HEMOGLOBIN 10.6 g/dL (10.9-14.3); LYMPHOCYTES # (AUTO) 0.9 K/uL (20.0-40.0); LYMPHOCYTES % (AUTO) 19.5 % (20.5-51.5); MEAN CORPUSCULAR HGB CONC 34 g/dL (32.3-35.6); MEAN CORPUSCULAR VOLUME 87.5 fL (75.5-95.3); MONOCYTES # (AUTO) 0.5 K/uL (2.0-10.0); MONOCYTES % (AUTO) 10.7 % (0.0-11.0); NEUTROPHILS # (AUTO) 3.1 K/uL (1.8-8.9); NEUTROPHILS % (AUTO) 68.5 % (38.5-71.5); PLATELET COUNT (AUTO) 226 K/uL (179-408); RED BLOOD CELL COUNT(AUTO) 3.53 MIL/uL (3.63-4.92); WHITE BLOOD COUNT (AUTO) 4.6 K/uL (3.8-11.8)
[2019-07-02 08:17] LABS: CARBON DIOXIDE 27 mmol/L (21-32); CHLORIDE 99 mmol/L (98-107); CREATININE 0.7 mg/dL (0.6-1.3); GLUCOSE 91 mg/dL (74-106); MAGNESIUM 1.7 mg/dL (1.8-2.4); POTASSIUM 3.6 mmol/L (3.5-5.1); UREA NITROGEN, BLOOD 19 mg/dL (7-18)
[2019-07-02] MEDS: FLUDROCORTISONE ACETATE 0.1 MG TABLET PO SCH (08:24)
[2019-07-02] MEDS: MULTIVITAMINS,THERAPEUTIC TABLET PO SCH (08:24)
[2019-07-02] MEDS: FAMOTIDINE 20 MG TABLET PO SCH (08:24)
[2019-07-02] MEDS: ASPIRIN EC 81 MG TABLET.DR PO SCH (08:24)
[2019-07-02] MEDS: CLOTRIMAZOLE 1% CREAM 30 GM TUBE TOP SCH ×2 (08:25→16:15)
[2019-07-02] MEDS: AMLODIPINE 5 MG TABLET PO SCH (08:25)
[2019-07-02] MEDS: ENSURE ENLIVE (VAN) 240 ML LIQUID PO SCH (08:25)
[2019-07-02] MEDS: SODIUM CHLORIDE 1,000 MG TABLET PO SCH ×3 (08:25→16:15)
[2019-07-02] MEDS ORDERED: MAGNESIUM OXIDE 400 MG TABLET PO ONE (11:00)
--- NOTE | 2019-07-02 11:37 | NUR ---
Patient for discharge this PM with TMS done. fax discharge prescription to the [facility] pharmacy. medication list prepared. belongings given. skin picture taken done.endorse to night RN. will continue monitor
[2019-07-02 16:48] VITALS: BP 140/72
[2019-07-02 21:06] VITALS: BP 151/81
== END 2019-07-02 19:30 | disposition home health service (06) | DRG 71 ==
PROVIDERS: ADMIT Physical Medicine & Rehabilitation Pain Medicine; ATTEND Physical Medicine & Rehabilitation Pain Medicine
DX: G93.41 Metabolic encephalopathy (principal); E22.2 Syndrome of inappropriate secretion of antidiuretic hormone; E27.40 Unspecified adrenocortical insufficiency; I50.32 Chronic diastolic (congestive) heart failure; J98.11 Atelectasis; R53.81 Other malaise; I11.0 Hypertensive heart disease with heart failure; D69.6 Thrombocytopenia, unspecified; G31.84 Mild cognitive impairment of uncertain or unknown etiology; G62.9 Polyneuropathy, unspecified; G89.29 Other chronic pain; I25.10 Atherosclerotic heart disease of native coronary artery without angina pectoris; I70.0 Atherosclerosis of aorta; G90.8 Other disorders of autonomic nervous system; K57.90 Diverticulosis of intestine, part unspecified, without perforation or abscess without bleeding; M06.9 Rheumatoid arthritis, unspecified; K58.9 Irritable bowel syndrome, unspecified; M41.9 Scoliosis, unspecified; Z86.73 Personal history of transient ischemic attack (TIA), and cerebral infarction without residual deficits; Z90.49 Acquired absence of other specified parts of digestive tract; Z85.038 Personal history of other malignant neoplasm of large intestine; M54.5 Low back pain; I48.0 Paroxysmal atrial fibrillation; E86.1 Hypovolemia; J30.9 Allergic rhinitis, unspecified; Z91.81 History of falling; Z88.8 Allergy status to other drugs, medicaments and biological substances; D63.8 Anemia in other chronic diseases classified elsewhere
CPT/HCPCS: 36415; 70360; 71101; 83735; 84100; 84300; 84550; 85025; 86038; C1758; J3535; J7040

== ENCOUNTER 2019-10-28 14:00 | Inpatient (IN) | payer MEDICARE, BC ==
[~2019-10-28] VITALS: Ht 175.3 cm; Wt 50.8 kg
[~2019-10-28 14:00] MED LIST changes: +ACET650T10 PO; +FLUD0.1T PO; +HYDR-3326 PO; +MAGN400O6 PO
[2019-10-28 14:35] LABS: BASOPHILS % (AUTO) 0.1 % (0.0-2.0); EOSINOPHILS % (AUTO) 0.2 % (0.0-7.0); HEMATOCRIT 39.7 % (31.2-41.9); LYMPHOCYTES # (AUTO) 0.9 K/uL (20.0-40.0); LYMPHOCYTES % (AUTO) 10.5 % (20.5-51.5); MEAN CORPUSCULAR HEMOGLOBIN 29.7 uug (24.7-32.8); MEAN CORPUSCULAR HGB CONC 33 g/dL (32.3-35.6); MEAN CORPUSCULAR VOLUME 90.8 fL (75.5-95.3); MONOCYTES # (AUTO) 0.5 K/uL (2.0-10.0); MONOCYTES % (AUTO) 5.5 % (0.0-11.0); NEUTROPHILS % (AUTO) 83.7 % (38.5-71.5); PLATELET COUNT (AUTO) 201 K/uL (179-408); RED BLOOD CELL COUNT(AUTO) 4.37 MIL/uL (3.63-4.92); WHITE BLOOD COUNT (AUTO) 8.4 K/uL (3.8-11.8)
--- NOTE | 2019-10-28 14:37 | NUR ---
Pt out of ER for CT.
[2019-10-28 14:42] LABS: CARBON DIOXIDE 30 mmol/L (21-32); CHLORIDE 103 mmol/L (98-107); CREATININE 1.2 mg/dL (0.6-1.3); GLUCOSE 142 mg/dL (74-106); POTASSIUM 4.6 mmol/L (3.5-5.1); UREA NITROGEN, BLOOD 25 mg/dL (7-18)
[2019-10-28 15:06] LABS: ALANINE AMINOTRANSFERASE 62 U/L (14-59); ALKALINE PHOSPHATASE 127 U/L (50-136); ASPARTATE AMINOTRANSFERASE 73 U/L (15-37); BILIRUBIN,DIRECT 0.2 mg/dL (0.0-0.2); BILIRUBIN,TOTAL 0.8 mg/dL (0.2-1.0); TOTAL PROTEIN, SERUM 7.1 g/dL (6.4-8.2)
[2019-10-28 15:26] LABS: LIPASE > 6000 U/L (73-393)
[2019-10-28] MEDS ORDERED: IV NORMAL SALINE 500 ML BAG IV ONE (16:00)
[2019-10-28] MEDS ORDERED: ASPI81TA31 PO (17:14)
[2019-10-28] MEDS ORDERED: AMLO2.5T4 PO (17:14)
--- NOTE | 2019-10-28 17:14 | NUR ---
PT DAUGHTER CALLED AND GAVE THE MED LIST AND DOSAGES
--- NOTE | 2019-10-28 18:00 | NUR ---
Patient received from ER with no signs of distress; patient admitted for pancreatis. Patient vital signs taken ; Report given to oncoming nurse.
[2019-10-28] MEDS: IV NS 1000 ML 1,000 ML IV PRN (19:00)
--- NOTE | 2019-10-28 19:00 | NUR ---
ADMITTED PATIENT IN MED SURG FLOOR UNDER THE CARE OF BOB MIRELES NP. PATIENT ALERT BUT FORGETFUL, COMPLAIN OF ABDOMINAL PAIN, WILL MEDICATE ORDERED. INSTRUCTED PATIENT THAT SHE'S NPO TILL FURTHER ORDER. CONT TO MONITOR.
[2019-10-28] MEDS ORDERED: MAGNESIUM HYDROXIDE 30 ML LIQUID UDC PO PRN (20:00)
[2019-10-28] MEDS ORDERED: MORPHINE SULFATE 2 MG/1 ML DISP.SYRIN IV PRN (20:00)
[2019-10-28] MEDS ORDERED: ONDANSETRON 4 MG/2 ML VIAL IV PRN (20:00)
[2019-10-28] MEDS ORDERED: Z GUARD REMEDY PASTE 57 GM TUBE TOP PRN (20:00)
[2019-10-28] MEDS ORDERED: ENOXAPARIN SODIUM 40 MG/0.4 ML DISP.SYRIN SQ SCH (20:00)
--- NOTE | 2019-10-28 20:00 | NUR ---
PATIENT HAS ORDER OF FULL LIQUID DIET, NOTIFY THE PATIENT. CONT TO MONITOR.
[2019-10-28 20:29] VITALS: BP 153/84
[2019-10-28] MEDS: ACETAMINOPHEN 325 MG TABLET PO PRN (21:14)
[2019-10-28] MEDS: ENOXAPARIN SODIUM 30 MG/0.3 ML DISP.SYRIN SUBCUT SCH (21:21)
[2019-10-29 04:14] VITALS: BP 142/75
[2019-10-29] MEDS: IV NS 1000 ML 1,000 ML IV PRN (05:00)
[2019-10-29 06:30] LABS: BASOPHILS % (AUTO) 0.1 % (0.0-2.0); HEMATOCRIT 35.3 % (31.2-41.9); HEMOGLOBIN 11.7 g/dL (10.9-14.3); LYMPHOCYTES # (AUTO) 0.6 K/uL (20.0-40.0); LYMPHOCYTES % (AUTO) 10.1 % (20.5-51.5); MEAN CORPUSCULAR HEMOGLOBIN 29.5 uug (24.7-32.8); MEAN CORPUSCULAR HGB CONC 33 g/dL (32.3-35.6); MEAN CORPUSCULAR VOLUME 88.6 fL (75.5-95.3); MONOCYTES # (AUTO) 0.3 K/uL (2.0-10.0); MONOCYTES % (AUTO) 4.4 % (0.0-11.0); NEUTROPHILS # (AUTO) 5.3 K/uL (1.8-8.9); NEUTROPHILS % (AUTO) 85.4 % (38.5-71.5); PLATELET COUNT (AUTO) 180 K/uL (179-408); RED BLOOD CELL COUNT(AUTO) 3.99 MIL/uL (3.63-4.92); WHITE BLOOD COUNT (AUTO) 6.2 K/uL (3.8-11.8)
[2019-10-29 06:38] LABS: THYROID STIMULATING HORMONE 1.323 mIU/mL (0.358-3.740)
[2019-10-29 06:49] LABS: ALANINE AMINOTRANSFERASE 59 U/L (14-59); ALKALINE PHOSPHATASE 96 U/L (50-136); ASPARTATE AMINOTRANSFERASE 61 U/L (15-37); BILIRUBIN,TOTAL 0.8 mg/dL (0.2-1.0); CARBON DIOXIDE 25 mmol/L (21-32); CHLORIDE 105 mmol/L (98-107); CREATININE 0.9 mg/dL (0.6-1.3); GLUCOSE 89 mg/dL (74-106); HDL CHOLESTEROL 86 mg/dL (40-60); MAGNESIUM 1.8 mg/dL (1.8-2.4); PHOSPHOROUS 3.2 mg/dL (2.5-4.9); POTASSIUM 3.8 mmol/L (3.5-5.1); TRIGLYCERIDES 43 MG/DL (30-150); UREA NITROGEN, BLOOD 20 mg/dL (7-18)
[2019-10-29 07:15] LABS: CHOLESTEROL 142 mg/dL (<200)
[2019-10-29] MEDS: IV D5 1/2 NS 1000 ML 1,000 ML IV PRN (08:00)
[2019-10-29] MEDS: PANTOPRAZOLE SODIUM 40 MG VIAL IV SCH (08:35)
[2019-10-29 09:21] LABS: LIPASE > 6000 U/L (73-393)
[2019-10-29 12:40] VITALS: BP 131/63
[2019-10-29 17:10] VITALS: BP 130/69
--- NOTE | 2019-10-29 19:03 | NUR ---
MRCP done. pt tolerated procedure. Pt is in no acute distress. Call light is within reach.
[2019-10-29 20:13] VITALS: BP 160/77
[2019-10-29] MEDS: ENOXAPARIN SODIUM 30 MG/0.3 ML DISP.SYRIN SUBCUT SCH (20:34)
[2019-10-29 23:49] VITALS: BP 135/70
--- NOTE | 2019-10-30 01:29 | NUR ---
Received patient awake in bed. AO x 3. IV in left AC patent and intact. D51/2NS running at 80 mL/hr. Verbalizes no pain at the moment. Safety precautions in place. Needs attended call light within reach. Will continue to monitor. Addendum: 10/30/19 at 0133 by SUMANTH CARREON RN Wrong date/ time --> 10/29/191939
[2019-10-30 05:23] VITALS: BP 153/72
[2019-10-30 06:01] VITALS: BP 147/66
[2019-10-30 06:54] LABS: BASOPHILS % (AUTO) 0.1 % (0.0-2.0); EOSINOPHILS % (AUTO) 0.2 % (0.0-7.0); HEMATOCRIT 32.6 % (31.2-41.9); HEMOGLOBIN 11.1 g/dL (10.9-14.3); LYMPHOCYTES # (AUTO) 0.9 K/uL (20.0-40.0); LYMPHOCYTES % (AUTO) 11.7 % (20.5-51.5); MEAN CORPUSCULAR HEMOGLOBIN 30.5 uug (24.7-32.8); MEAN CORPUSCULAR HGB CONC 34 g/dL (32.3-35.6); MEAN CORPUSCULAR VOLUME 89.6 fL (75.5-95.3); MONOCYTES # (AUTO) 0.5 K/uL (2.0-10.0); MONOCYTES % (AUTO) 6.7 % (0.0-11.0); NEUTROPHILS % (AUTO) 81.3 % (38.5-71.5); PLATELET COUNT (AUTO) 149 K/uL (179-408); RED BLOOD CELL COUNT(AUTO) 3.64 MIL/uL (3.63-4.92); WHITE BLOOD COUNT (AUTO) 7.4 K/uL (3.8-11.8)
[2019-10-30 07:09] LABS: BILIRUBIN,TOTAL 0.7 mg/dL (0.2-1.0); CREATININE 0.8 mg/dL (0.6-1.3); MAGNESIUM 1.6 mg/dL (1.8-2.4); PHOSPHOROUS 2.2 mg/dL (2.5-4.9); POTASSIUM 3.5 mmol/L (3.5-5.1); TOTAL PROTEIN, SERUM 5.4 g/dL (6.4-8.2)
--- NOTE | 2019-10-30 07:20 | NUR ---
RECEIVED PATIENT IN BED RESTING , IV ON LEFT AC INTACT A ND PATENT, NO S/S OF ACUTE DISTRESS NOTED AND NO C/O PAIN AT THIS TIME. KEPT CLEAN AND DRY AT ALL TIMES. CALL LIGHT WITHIN REACH. PROVIDE SAFETY AND COMFORT AT ALL TIMES WILL CONTINUE TO MONITOR.
[2019-10-30] MEDS ORDERED: MAGNESIUM SULFATE/D5W 100 ML IV SCH (08:30)
[2019-10-30] MEDS: POTASSIUM PHOSPHATE MM 5 MMOL in IV DEXTROSE 5% 100 ML IV SCH ×2 (09:31→10:43)
[2019-10-30] MEDS: PANTOPRAZOLE SODIUM 40 MG VIAL IV SCH (09:31)
[2019-10-30] MEDS: HYDROCORTISONE RECTAL SUPP 25 MG EACH RC SCH ×2 (09:48→20:48)
[2019-10-30 11:08] VITALS: BP 153/73
[2019-10-30 15:13] VITALS: BP 115/70
--- NOTE | 2019-10-30 18:40 | NUR ---
PATIENT IN BED ALERT AND AWAKE AND WATCHING TV , IV INTACT AND PATENT ON LEFT FOREARM # 20, NO S/S OF ACUTE DISTRESS NOTED AND NO C/O PAIN AT THIS TIME. KEPT CLEAN AND DRY AT ALL TIMES. CALL LIGHT WITHIN REACH. SAFETY AND COMFORT PROVIDED AT ALL TIMES. WILL CONTINUE TO MONITOR.
--- NOTE | 2019-10-30 19:15 | NUR ---
Received patient awake in bed. AO x 3. IV in left AC flushing, patent and intact. In no distress at the moment. Respirations normal. D51/2NS running at 80 mL/hr. Verbalizes no pain at this time. Safety precautions in place. Needs attended call light within reach. Will continue to monitor.
[2019-10-30] MEDS: IV D5 1/2 NS 1000 ML 1,000 ML IV PRN (19:56)
[2019-10-30 20:39] VITALS: BP 155/77
[2019-10-30] MEDS: ENOXAPARIN SODIUM 30 MG/0.3 ML DISP.SYRIN SUBCUT SCH (20:50)
[2019-10-31 05:22] VITALS: BP 131/69
[2019-10-31] MEDS: PANTOPRAZOLE SODIUM 40 MG TABLET.DR PO SCH (06:12)
[2019-10-31 06:34] LABS: BASOPHILS % (AUTO) 0.1 % (0.0-2.0); EOSINOPHILS % (AUTO) 0.3 % (0.0-7.0); HEMATOCRIT 31.8 % (31.2-41.9); HEMOGLOBIN 10.6 g/dL (10.9-14.3); LYMPHOCYTES # (AUTO) 0.8 K/uL (20.0-40.0); MEAN CORPUSCULAR HEMOGLOBIN 29.4 uug (24.7-32.8); MEAN CORPUSCULAR HGB CONC 33 g/dL (32.3-35.6); MEAN CORPUSCULAR VOLUME 88.4 fL (75.5-95.3); MONOCYTES # (AUTO) 0.6 K/uL (2.0-10.0); MONOCYTES % (AUTO) 7.6 % (0.0-11.0); NEUTROPHILS # (AUTO) 6.3 K/uL (1.8-8.9); PLATELET COUNT (AUTO) 161 K/uL (179-408); WHITE BLOOD COUNT (AUTO) 7.6 K/uL (3.8-11.8)
[2019-10-31 06:39] LABS: CREATININE 0.7 mg/dL (0.6-1.3); MAGNESIUM 1.6 mg/dL (1.8-2.4); PHOSPHOROUS 2.8 mg/dL (2.5-4.9); POTASSIUM 3.6 mmol/L (3.5-5.1)
--- NOTE | 2019-10-31 06:47 | NUR ---
Patient slept well throughout the night. No acute change in patient condition. Tolerated medications without adverse effects. No complaints of pain. Will endorse accordingly.
[2019-10-31 07:00] VITALS: BP 176/72
[2019-10-31 07:20] VITALS: BP 149/72
--- NOTE | 2019-10-31 07:30 | NUR ---
Received patient in bed asleep with HOB elevated. No distress noted. IVF running on the left forearm intact and patent, Safety measures and comfort provided. Bed is low and locked, call light within reach, bed alarm on. Will continue to monitor.
--- NOTE | 2019-10-31 07:45 | NUR ---
PATIENT'S BLOOD PRESSURE ELEVATED TO 176/72 AT 0700. IRINA MCDONALD CONTACTED AND NOTIFIED OF ELEVATED BP. BLOOD PRESSURE RE-CHECKED AT 0730 AND DECREASE TO 149/72
[2019-10-31] MEDS: HYDROCORTISONE RECTAL SUPP 25 MG EACH RC SCH ×2 (09:20→21:18)
[2019-10-31] MEDS ORDERED: IV NORMAL SALINE 0 ML IV ONE (09:29)
[2019-10-31] MEDS ORDERED: SWABABLE VALVE TRANSFER SET EA MC ONE (09:29)
[2019-10-31] MEDS ORDERED: IOHEXOL 300MG/ML 100 ML INFUS..BTL ONE (09:29)
[2019-10-31] MEDS ORDERED: BARIUM SULFATE 450 ML ORAL.SUSP ONE (09:29)
[2019-10-31] MEDS ORDERED: MAGNESIUM SULFATE/D5W 100 ML IV SCH (09:30)
[2019-10-31] MEDS ORDERED: POTASSIUM CHLORIDE 20 MEQ TAB.PRT.SR PO ONE (09:30)
[2019-10-31] MEDS: IV D5 1/2 NS 1000 ML 1,000 ML IV PRN ×2 (10:00→23:31)
[2019-10-31 11:38] VITALS: BP 158/81
[2019-10-31 15:43] VITALS: BP 148/64
--- NOTE | 2019-10-31 18:31 | NUR ---
Patient in bed alert and awake. No distress noted. IV intact and patent, Safety measures and comfort provided. kept clean and dry at all times. Call light within reach, bed alarm on. Will continue to monitor.
--- NOTE | 2019-10-31 19:15 | NUR ---
Received patient awake in bed. AO x 3. IV in left forearm. flushing. D51/2NS running at 80 mL/hr. Noted with some signs of leaking. Will check. In no distress at the moment. Respirations normal.Verbalizes no pain at this time. Safety precautions in place. Needs attended call light within reach. Will continue to monitor.
[2019-10-31 19:44] VITALS: BP 152/83
--- NOTE | 2019-10-31 20:30 | NUR ---
Pt is complaining of 7/10 abdominal pain, refusing stronger medications, requesting for Tylenol. Dtr is at bedside and is concerned about the discharge orders. Notified her that MD cancelled it and has ordered blood works that will be reviewed in the morning. Dtr expressed that she had spoken with MD but unable to fully tell him history of patient. Pt with hx of intestinal cancer and would just like to make sure that before discharging patient everything is cleared. Patient asked if there were any more imaging to be done, informed her that due to patient being allergic to Iodine, it was cancelled. Patient mentioned anything about "Barium", checked the chart and saw that it was cancelled as well. MD contacted to confirm if PO contrast was to be fully cancelled. Awaiting response. Dtr gave her number to give her updates on patient situation.
[2019-10-31] MEDS: ENOXAPARIN SODIUM 30 MG/0.3 ML DISP.SYRIN SUBCUT SCH (21:00)
[2019-10-31] MEDS: ACETAMINOPHEN 325 MG TABLET PO PRN (21:18)
[2019-11-01] MEDS: PANTOPRAZOLE SODIUM 40 MG TABLET.DR PO SCH (06:22)
[2019-11-01 06:24] VITALS: BP 139/68
--- NOTE | 2019-11-01 06:51 | NUR ---
Pt slept well through the night. No more complaints of abdominal pain (described below the diaphragm) after Tylenol was given last night. No nausea or vomiting. Diapers kept clean and dry. Will endorse accordingly.
[2019-11-01 06:59] LABS: EOSINOPHILS # (AUTO) 0.1 K/uL (0.0-0.7); HEMATOCRIT 31.1 % (31.2-41.9); LYMPHOCYTES # (AUTO) 0.5 K/uL (20.0-40.0); MONOCYTES # (AUTO) 0.4 K/uL (2.0-10.0)
[2019-11-01 07:08] LABS: BILIRUBIN,TOTAL 0.4 mg/dL (0.2-1.0); CREATININE 0.8 mg/dL (0.6-1.3); MAGNESIUM 1.8 mg/dL (1.8-2.4); PHOSPHOROUS 2.9 mg/dL (2.5-4.9); POTASSIUM 3.8 mmol/L (3.5-5.1); TOTAL PROTEIN, SERUM 5.3 g/dL (6.4-8.2)
[2019-11-01 07:10] LABS: BASOPHILS % (AUTO) 0.1 % (0.0-2.0); EOSINOPHILS % (AUTO) 1.6 % (0.0-7.0); HEMOGLOBIN 10.3 g/dL (10.9-14.3); LYMPHOCYTES % (AUTO) 12.1 % (20.5-51.5); MEAN CORPUSCULAR HEMOGLOBIN 29.9 uug (24.7-32.8); MEAN CORPUSCULAR HGB CONC 33 g/dL (32.3-35.6); MEAN CORPUSCULAR VOLUME 89.9 fL (75.5-95.3); MONOCYTES % (AUTO) 8.6 % (0.0-11.0); NEUTROPHILS # (AUTO) 3.4 K/uL (1.8-8.9); NEUTROPHILS % (AUTO) 77.6 % (38.5-71.5); PLATELET COUNT (AUTO) 165 K/uL (179-408); RED BLOOD CELL COUNT(AUTO) 3.46 MIL/uL (3.63-4.92)
[2019-11-01 07:13] LABS: WHITE BLOOD COUNT (AUTO) 4.4 K/uL (3.8-11.8)
--- NOTE | 2019-11-01 07:15 | NUR ---
RECEIVED PATIENT SLEEPING IN BED. NO ACUTE DISTRESS NOTED. BED IN LOWEST POSITION, SIDE RIALS UP X2, CALL LIGHT WITHIN REACH. WILL CONTINUE TO MONITOR.
[2019-11-01 11:21] VITALS: BP 135/70
[2019-11-01] MEDS: IV D5 1/2 NS 1000 ML 1,000 ML IV PRN (12:51)
[2019-11-01 15:17] VITALS: BP 147/58
--- NOTE | 2019-11-01 18:26 | NUR ---
PATIENT RESTED INTERMITTENTLY THROUGHOUT DAY. PATIENT DENIES PAIN AND DISCOMFORT. NO ACUTE DISTRESS NOTED THROUGHOUT SHIFT. PATIENT TAKEN DOWN TO CT SCAN WITHOUT COMPLICATION. SAFETY MEASURES PROVIDED. WILL ENDORSE TO ONCOMING NURSE.
[2019-11-01 20:00] VITALS: BP 151/72
[2019-11-01] MEDS ORDERED: MAG HYDROX/AL HYDROX/SIMETH 30 ML LIQUID UDC PO PRN (20:15)
[2019-11-01] MEDS: ENOXAPARIN SODIUM 30 MG/0.3 ML DISP.SYRIN SUBCUT SCH (20:20)
[2019-11-01] MEDS: AMLODIPINE 2.5 MG TABLET PO SCH (20:54)
[2019-11-02 04:29] VITALS: BP 129/72
--- NOTE | 2019-11-02 05:06 | NUR ---
patient received lying in bed watching tv. a/ox1. no signs of acute distress and v/s stable throughout shift. safety and comfort measures provided. bed in lowest position, side rails up x2 and bed alarm on. all medications administered and tolerated well. all needs met. will continue plan of care and endorse accordingly to morning nurse.
[2019-11-02] MEDS: PANTOPRAZOLE SODIUM 40 MG TABLET.DR PO SCH (06:13)
--- NOTE | 2019-11-02 07:30 | NUR ---
Patient calm and comfortable through out shift; patient medication compliant ;patient with stable vital signs. Report given to oncoming nurse.
--- NOTE | 2019-11-02 07:30 | NUR ---
Patient resting in bed upon initial assessment with no signs of distress; patient will continue to be monitored.
[2019-11-02] MEDS: AMLODIPINE 2.5 MG TABLET PO SCH (08:24)
[2019-11-02 11:40] VITALS: BP 154/81
[2019-11-02 16:00] VITALS: BP 156/74
[2019-11-02] MEDS: METOPROLOL SUCCINATE XL 25 MG TAB.SR.24H PO SCH (18:36)
[2019-11-02] MEDS: LIPASE/PROTEASE/AMYLASE 4200 UNITS CAPSULE.DR PO SCH (18:36)
[2019-11-02 19:54] VITALS: BP 151/68
[2019-11-03 05:08] VITALS: BP 143/75
[2019-11-03] MEDS: PANTOPRAZOLE SODIUM 40 MG TABLET.DR PO SCH (06:20)
[2019-11-03 06:33] LABS: BASOPHILS % (AUTO) 0.5 % (0.0-2.0); EOSINOPHILS # (AUTO) 0.1 K/uL (0.0-0.7); EOSINOPHILS % (AUTO) 2.4 % (0.0-7.0); HEMATOCRIT 31.5 % (31.2-41.9); HEMOGLOBIN 10.5 g/dL (10.9-14.3); LYMPHOCYTES # (AUTO) 0.9 K/uL (20.0-40.0); LYMPHOCYTES % (AUTO) 22.6 % (20.5-51.5); MEAN CORPUSCULAR HEMOGLOBIN 29.7 uug (24.7-32.8); MEAN CORPUSCULAR HGB CONC 33 g/dL (32.3-35.6); MEAN CORPUSCULAR VOLUME 89.4 fL (75.5-95.3); MONOCYTES # (AUTO) 0.5 K/uL (2.0-10.0); MONOCYTES % (AUTO) 13.2 % (0.0-11.0); NEUTROPHILS # (AUTO) 2.4 K/uL (1.8-8.9); NEUTROPHILS % (AUTO) 61.3 % (38.5-71.5); PLATELET COUNT (AUTO) 206 K/uL (179-408); RED BLOOD CELL COUNT(AUTO) 3.53 MIL/uL (3.63-4.92); WHITE BLOOD COUNT (AUTO) 3.8 K/uL (3.8-11.8)
[2019-11-03 07:07] LABS: CARBON DIOXIDE 28 mmol/L (21-32); CHLORIDE 100 mmol/L (98-107); CREATININE 0.8 mg/dL (0.6-1.3); GLUCOSE 86 mg/dL (74-106); MAGNESIUM 1.8 mg/dL (1.8-2.4); PHOSPHOROUS 3.6 mg/dL (2.5-4.9); POTASSIUM 4.3 mmol/L (3.5-5.1); UREA NITROGEN, BLOOD 19 mg/dL (7-18)
--- NOTE | 2019-11-03 07:30 | NUR ---
Patient calm and comfortable with no signs of distress; patient will continue to be monitored.
[2019-11-03] MEDS: LIPASE/PROTEASE/AMYLASE 4200 UNITS CAPSULE.DR PO SCH ×3 (09:03→18:42)
[2019-11-03] MEDS: MULTIVITAMINS,THERAPEUTIC TABLET PO SCH (09:03)
[2019-11-03] MEDS: METOPROLOL SUCCINATE XL 25 MG TAB.SR.24H PO SCH (09:04)
[2019-11-03 11:20] VITALS: BP 140/66
[2019-11-03 15:45] VITALS: BP 144/75
--- NOTE | 2019-11-03 19:08 | NUR ---
Patient medication compliant through out shift; with no signs of distress; patient with stable vital signs ;Report given to oncoming nurse.
[2019-11-03 20:12] VITALS: BP 133/72
[2019-11-04 04:31] VITALS: BP 143/67
[2019-11-04] MEDS: PANTOPRAZOLE SODIUM 40 MG TABLET.DR PO SCH (06:04)
[2019-11-04] MEDS: MULTIVITAMINS,THERAPEUTIC TABLET PO SCH (08:37)
[2019-11-04] MEDS: LIPASE/PROTEASE/AMYLASE 4200 UNITS CAPSULE.DR PO SCH ×3 (08:37→16:56)
[2019-11-04] MEDS: METOPROLOL SUCCINATE XL 25 MG TAB.SR.24H PO SCH (08:38)
[2019-11-04 11:24] VITALS: BP 140/62
--- NOTE | 2019-11-04 11:32 | NUR ---
Pt received this morning resting in bed. No acute distress, able to make needs known. Pt compliant with routine medications. VSS. Bed in locked and lowest position with 2 side rails up. Call light within reach. Plan of care for today discussed. Will continue to monitor.
[2019-11-04 15:30] VITALS: BP 139/73
[2019-11-04] MEDS ORDERED: MULT-24 PO (16:12)
[2019-11-04] MEDS ORDERED: PANT40TA2 PO (16:12)
[2019-11-04] MEDS ORDERED: AMLO5TAB4 PO (16:12)
[2019-11-04] MEDS ORDERED: METO-356 PO (16:12)
[2019-11-04] MEDS ORDERED: ACET325T53 PO (16:12)
[2019-11-04] MEDS ORDERED: LIPA1CAP27 PO (16:12)
[2019-11-04] MEDS ORDERED: INFLUENZA VACCINE 2019-2020 0.5 ML DISP.SYRIN IM ONE (17:00)
[2019-11-04] MEDS ORDERED: PNEUMOCOCCAL 23-VAL P-SAC VAC 0.5 ML VIAL IM ONE (17:00)
--- NOTE | 2019-11-04 19:16 | NUR ---
Discharge order received, paperwork completed, signed, and copy placed in chart. Pt teaching reviewed with Pt and daughter, Hortensia via phone. Belongings accounted for. IV removed and intact. VSS. Flu vaccine administered. No skin integrity photos or home medications to return. Pt ready for discharge, awaiting family to pick her up in private car. Will continue to monitor and endorse to on coming night guard nurse.
--- NOTE | 2019-11-04 19:20 | NUR ---
RECEIVED PATIENT LYING IN BED. AAOX2-3. IN NO ACUTE DISTRESS. FOR DISCHARGE TO HOME TODAY. AWAITING FOR DAUGHTER TO ASSISTANT MANAGER/EMBALMER. NEEDS ASSESSED AND ATTENDED TO. SAFETY MEASURE INITIATED AND CALL ACKERMAN WITHIN REACH.
[2019-11-04 20:00] VITALS: BP 110/54
--- NOTE | 2019-11-04 20:14 | NUR ---
Patient AAOPx2-2. Denies anypain or SOB. VS WNL. Patient discharge to home, wheel at the front door via wheelchair and assisted to private car. Picked up by her daughter Wu. All belongings with patient.
== END 2019-11-04 22:40 | disposition home health service (06) | DRG 438 ==
LOC: ER 14:00 → MEDSURG3 17:29
PROVIDERS: ADMIT Nurse Practitioner Acute Care; ATTEND Nurse Practitioner Acute Care
DX: K85.90 Acute pancreatitis without necrosis or infection, unspecified (principal); N17.0 Acute kidney failure with tubular necrosis; E43 Unspecified severe protein-calorie malnutrition; I50.32 Chronic diastolic (congestive) heart failure; Z68.1 Body mass index [BMI] 19.9 or less, adult; D68.59 Other primary thrombophilia; M48.54XA Collapsed vertebra, not elsewhere classified, thoracic region, initial encounter for fracture; J98.11 Atelectasis; I11.0 Hypertensive heart disease with heart failure; M06.9 Rheumatoid arthritis, unspecified; Z74.09 Other reduced mobility; K64.9 Unspecified hemorrhoids; G31.84 Mild cognitive impairment of uncertain or unknown etiology; Z86.73 Personal history of transient ischemic attack (TIA), and cerebral infarction without residual deficits; Z96.641 Presence of right artificial hip joint; Z79.899 Other long term (current) drug therapy; M41.9 Scoliosis, unspecified; M46.00 Spinal enthesopathy, site unspecified; K57.30 Diverticulosis of large intestine without perforation or abscess without bleeding; I70.0 Atherosclerosis of aorta; Z86.79 Personal history of other diseases of the circulatory system; Z98.890 Other specified postprocedural states; I25.10 Atherosclerotic heart disease of native coronary artery without angina pectoris; E11.9 Type 2 diabetes mellitus without complications
CPT/HCPCS: 36415; 70030-TC; 71045; 74181; 83690; 83735; 84100; 84443; 85025; 85730; 86301; 90686; 93005; A4663; C9113; G0378; J1650; J3475; J3490; J7030; J7050; J7060; Q9951; Q9967

== ENCOUNTER 2019-12-14 16:29 | Inpatient (IN) | payer MEDICARE, BC ==
[~2019-12-14] VITALS: Ht 152.4 cm; Wt 50.8 kg
[~2019-12-14 16:29] MED LIST changes: +ACET325T53 PO; -ACET650T10 PO; +AMLO5TAB4 PO; +ASPI81TA31 PO; -FLUD0.1T PO; -HYDR-3326 PO; +LIPA1CAP27 PO; -LOSA25TA3 PO; -MAGN400O6 PO; +METO-356 PO; +MULT-24 PO; +PANT40TA2 PO
[2019-12-14] MEDS ORDERED: MORPHINE SULFATE 2 MG/1 ML DISP.SYRIN IV ONE (16:45)
[2019-12-14] MEDS: IV NORMAL SALINE 1000 ML BAG IV ONE ×2 (16:45→17:18)
[2019-12-14 16:56] LABS: BASOPHILS % (AUTO) 0.3 % (0.0-2.0); EOSINOPHILS % (AUTO) 0.2 % (0.0-7.0); HEMATOCRIT 38.2 % (31.2-41.9); HEMOGLOBIN 12.5 g/dL (10.9-14.3); LYMPHOCYTES # (AUTO) 0.8 K/uL (20.0-40.0); LYMPHOCYTES % (AUTO) 10.8 % (20.5-51.5); MEAN CORPUSCULAR HEMOGLOBIN 29.1 uug (24.7-32.8); MEAN CORPUSCULAR HGB CONC 33 g/dL (32.3-35.6); MEAN CORPUSCULAR VOLUME 88.7 fL (75.5-95.3); MONOCYTES # (AUTO) 0.5 K/uL (2.0-10.0); MONOCYTES % (AUTO) 6.6 % (0.0-11.0); NEUTROPHILS # (AUTO) 6.4 K/uL (1.8-8.9); NEUTROPHILS % (AUTO) 82.1 % (38.5-71.5); PLATELET COUNT (AUTO) 210 K/uL (179-408); RED BLOOD CELL COUNT(AUTO) 4.31 MIL/uL (3.63-4.92); WHITE BLOOD COUNT (AUTO) 7.8 K/uL (3.8-11.8)
[2019-12-14] MEDS ORDERED: MORPHINE SULFATE 2 MG/1 ML DISP.SYRIN ONE (17:12)
[2019-12-14 17:14] LABS: BILIRUBIN,DIRECT 0.2 mg/dL (0.0-0.2); BILIRUBIN,TOTAL 0.5 mg/dL (0.2-1.0); CREATININE 1.1 mg/dL (0.6-1.3); POTASSIUM 3.7 mmol/L (3.5-5.1); TOTAL PROTEIN, SERUM 6.5 g/dL (6.4-8.2)
[2019-12-14] MEDS ORDERED: ONDANSETRON 4 MG/2 ML VIAL IV ONE (17:15)
[2019-12-14] MEDS ORDERED: ONDANSETRON 4 MG/2 ML VIAL ONE (17:15)
[2019-12-14] MEDS ORDERED: ACETAMINOPHEN 650 MG SUPP.RECT RC PRN (20:45)
[2019-12-14] MEDS ORDERED: ONDANSETRON 4 MG/2 ML VIAL IV PRN (20:45)
[2019-12-14 21:09] VITALS: BP 142/87
[2019-12-14] MEDS: MORPHINE SULFATE 2 MG/1 ML DISP.SYRIN IV PRN (21:14)
[2019-12-14] MEDS: IV D5 1/2 NS 1000 ML 1,000 ML IV PRN (21:43)
[2019-12-15 00:35] VITALS: BP 152/71
[2019-12-15] MEDS: MORPHINE SULFATE 2 MG/1 ML DISP.SYRIN IV PRN (01:58)
[2019-12-15 04:54] VITALS: BP 144/70
[2019-12-15 07:08] LABS: BASOPHILS % (AUTO) 0.2 % (0.0-2.0); EOSINOPHILS % (AUTO) 0.1 % (0.0-7.0); HEMOGLOBIN 11.4 g/dL (10.9-14.3); LYMPHOCYTES # (AUTO) 0.6 K/uL (20.0-40.0); LYMPHOCYTES % (AUTO) 11.3 % (20.5-51.5); MEAN CORPUSCULAR HEMOGLOBIN 29.2 uug (24.7-32.8); MEAN CORPUSCULAR HGB CONC 33 g/dL (32.3-35.6); MEAN CORPUSCULAR VOLUME 89.3 fL (75.5-95.3); MONOCYTES # (AUTO) 0.3 K/uL (2.0-10.0); MONOCYTES % (AUTO) 6.1 % (0.0-11.0); NEUTROPHILS # (AUTO) 4.3 K/uL (1.8-8.9); NEUTROPHILS % (AUTO) 82.3 % (38.5-71.5); PLATELET COUNT (AUTO) 176 K/uL (179-408); RED BLOOD CELL COUNT(AUTO) 3.91 MIL/uL (3.63-4.92); WHITE BLOOD COUNT (AUTO) 5.2 K/uL (3.8-11.8)
[2019-12-15 07:43] LABS: ALANINE AMINOTRANSFERASE 11 U/L (14-59); ALKALINE PHOSPHATASE 60 U/L (50-136); ASPARTATE AMINOTRANSFERASE 19 U/L (15-37); BILIRUBIN,TOTAL 0.7 mg/dL (0.2-1.0); CARBON DIOXIDE 27 mmol/L (21-32); CHLORIDE 104 mmol/L (98-107); CREATININE 0.9 mg/dL (0.6-1.3); GLUCOSE 111 mg/dL (74-106); MAGNESIUM 1.8 mg/dL (1.8-2.4); PHOSPHOROUS 3.6 mg/dL (2.5-4.9); TOTAL PROTEIN, SERUM 5.7 g/dL (6.4-8.2); UREA NITROGEN, BLOOD 23 mg/dL (7-18)
[2019-12-15] MEDS: PANTOPRAZOLE SODIUM 40 MG VIAL IV SCH (08:53)
[2019-12-15 10:01] LABS: LIPASE > 6000 U/L (73-393)
[2019-12-15] MEDS: IV D5 1/2 NS 1000 ML 1,000 ML IV PRN ×2 (10:48→23:30)
[2019-12-15 11:14] VITALS: BP 139/67
[2019-12-15 15:20] VITALS: BP 149/70
[2019-12-15 20:19] VITALS: BP 157/71
[2019-12-16 05:23] VITALS: BP 145/79
[2019-12-16 07:36] LABS: CREATININE 0.8 mg/dL (0.6-1.3); MAGNESIUM 1.6 mg/dL (1.8-2.4); PHOSPHOROUS 2.7 mg/dL (2.5-4.9); POTASSIUM 3.3 mmol/L (3.5-5.1)
[2019-12-16 07:43] LABS: EOSINOPHILS % (AUTO) 0.1 % (0.0-7.0); LYMPHOCYTES # (AUTO) 0.6 K/uL (20.0-40.0); MEAN CORPUSCULAR HEMOGLOBIN 29.4 uug (24.7-32.8); MONOCYTES # (AUTO) 0.5 K/uL (2.0-10.0); MONOCYTES % (AUTO) 6.7 % (0.0-11.0); NEUTROPHILS # (AUTO) 6.9 K/uL (1.8-8.9); NEUTROPHILS % (AUTO) 85.2 % (38.5-71.5); PLATELET COUNT (AUTO) 153 K/uL (179-408)
[2019-12-16 08:18] LABS: BASOPHILS % (AUTO) 0.1 % (0.0-2.0); HEMATOCRIT 32.1 % (31.2-41.9); HEMOGLOBIN 10.6 g/dL (10.9-14.3); LYMPHOCYTES % (AUTO) 7.9 % (20.5-51.5); MEAN CORPUSCULAR HGB CONC 33 g/dL (32.3-35.6); MEAN CORPUSCULAR VOLUME 88.5 fL (75.5-95.3); RED BLOOD CELL COUNT(AUTO) 3.62 MIL/uL (3.63-4.92)
[2019-12-16 08:19] LABS: WHITE BLOOD COUNT (AUTO) 8.1 K/uL (3.8-11.8)
[2019-12-16] MEDS: PANTOPRAZOLE SODIUM 40 MG VIAL IV SCH (08:26)
[2019-12-16] MEDS ORDERED: POTASSIUM CHLORIDE 20 MEQ TAB.PRT.SR PO ONE (11:00)
[2019-12-16] MEDS: MAGNESIUM SULFATE/D5W 100 ML IV SCH ×2 (11:24→12:35)
[2019-12-16] MEDS: IV D5 1/2 NS 1000 ML 1,000 ML IV PRN (11:30)
[2019-12-16 11:33] VITALS: BP 147/73
[2019-12-16 15:50] VITALS: BP 158/76
[2019-12-16 19:45] LABS: *BILIRUBIN,URIN NEGATIVE (NEGATIVE); *BLOOD, URINE 1+ (NEGATIVE); *CLARITY,URINE SLIGHTLY CLOUDY (CLEAR); *COLOR,URINE YELLOW (YELLOW); *KETONES,URINE NEGATIVE (NEGATIVE); LEUKOCYTE ESTERASE ,URINE 1+ (NEGATIVE); NITRITE, URINE POSITIVE (NEGATIVE); UGLUCOSE NEGATIVE (NEGATIVE)
[2019-12-16 19:55] LABS: BACTERIA,URINE MANY /HPF (NONE SEEN); RBC,URINE 80-100 /HPF (0-3); WBC,URINE TNTC /HPF (0-3)
[2019-12-16 19:56] LABS: MUCUS,URINE FEW /LPF (0-FEW); SQUAMOUS EPITHELIAL CELL,UR MODERATE /HPF (NONE SEEN); URINE AMORPHOUS URATE MANY /HPF
[2019-12-16] MEDS: MORPHINE SULFATE 2 MG/1 ML DISP.SYRIN IV PRN (20:29)
[2019-12-16 20:30] VITALS: BP 157/71
[2019-12-17] MEDS: IV D5 1/2 NS 1000 ML 1,000 ML IV PRN ×2 (02:18→15:26)
[2019-12-17 06:04] VITALS: BP 142/70
[2019-12-17] MEDS: PANTOPRAZOLE SODIUM 40 MG VIAL IV SCH (08:36)
[2019-12-17 12:12] VITALS: BP 124/73
[2019-12-17] MEDS: CEFTRIAXONE 1 G in IV DEXTROSE 5% 50 ML IV SCH (13:13)
[2019-12-17 16:12] VITALS: BP 167/81
[2019-12-17] MEDS: LIPASE/PROTEASE/AMYLASE 4200 UNITS CAPSULE.DR PO SCH (18:06)
[2019-12-17 19:00] VITALS: BP 167/81
[2019-12-17 19:30] VITALS: BP 140/60
[2019-12-17] MEDS: MORPHINE SULFATE 2 MG/1 ML DISP.SYRIN IV PRN (20:13)
[2019-12-17] MEDS: AMLODIPINE 5 MG TABLET PO SCH (20:13)
[2019-12-18] MEDS: MORPHINE SULFATE 2 MG/1 ML DISP.SYRIN IV PRN ×2 (00:29→06:07)
[2019-12-18 00:40] VITALS: BP 136/74
[2019-12-18] MEDS: IV D5 1/2 NS 1000 ML 1,000 ML IV PRN ×2 (04:05→20:01)
[2019-12-18] MEDS: PANTOPRAZOLE SODIUM 40 MG TABLET.DR PO SCH (06:06)
[2019-12-18 07:18] LABS: BASOPHILS % (AUTO) 0.1 % (0.0-2.0); EOSINOPHILS # (AUTO) 0.1 K/uL (0.0-0.7); EOSINOPHILS % (AUTO) 1.1 % (0.0-7.0); HEMATOCRIT 33.4 % (31.2-41.9); HEMOGLOBIN 11.1 g/dL (10.9-14.3); LYMPHOCYTES # (AUTO) 0.8 K/uL (20.0-40.0); LYMPHOCYTES % (AUTO) 16.1 % (20.5-51.5); MEAN CORPUSCULAR HEMOGLOBIN 28.8 uug (24.7-32.8); MEAN CORPUSCULAR HGB CONC 33 g/dL (32.3-35.6); MEAN CORPUSCULAR VOLUME 86.5 fL (75.5-95.3); MONOCYTES # (AUTO) 0.5 K/uL (2.0-10.0); MONOCYTES % (AUTO) 9.3 % (0.0-11.0); NEUTROPHILS # (AUTO) 3.8 K/uL (1.8-8.9); NEUTROPHILS % (AUTO) 73.4 % (38.5-71.5); PLATELET COUNT (AUTO) 182 K/uL (179-408); RED BLOOD CELL COUNT(AUTO) 3.86 MIL/uL (3.63-4.92); WHITE BLOOD COUNT (AUTO) 5.2 K/uL (3.8-11.8)
[2019-12-18 07:23] LABS: CREATININE 0.7 mg/dL (0.6-1.3); MAGNESIUM 1.5 mg/dL (1.8-2.4); PHOSPHOROUS 2.4 mg/dL (2.5-4.9); POTASSIUM 3.3 mmol/L (3.5-5.1)
[2019-12-18] MEDS: LIPASE/PROTEASE/AMYLASE 4200 UNITS CAPSULE.DR PO SCH ×3 (08:22→17:50)
[2019-12-18] MEDS: METOPROLOL SUCCINATE XL 25 MG TAB.SR.24H PO SCH (08:25)
[2019-12-18] MEDS: ASPIRIN 81 MG TAB.CHEW PO SCH (08:25)
[2019-12-18] MEDS: MULTIVITAMINS,THERAPEUTIC TABLET PO SCH (08:26)
[2019-12-18 12:24] VITALS: BP 152/71
[2019-12-18] MEDS: CEFTRIAXONE 1 G in IV DEXTROSE 5% 50 ML IV SCH (12:53)
[2019-12-18] MEDS ORDERED: NEUTRA PHOS PACKET PO ONE (13:15)
[2019-12-18] MEDS ORDERED: POTASSIUM CHLORIDE 20 MEQ TAB.PRT.SR PO ONE (13:15)
[2019-12-18] MEDS: MAGNESIUM SULFATE/D5W 100 ML IV SCH ×2 (13:51→15:22)
[2019-12-18 17:33] VITALS: BP 149/68
[2019-12-18] MEDS: AMLODIPINE 5 MG TABLET PO SCH (20:00)
[2019-12-18 20:18] VITALS: BP 170/79
[2019-12-19 00:16] VITALS: BP 154/84
[2019-12-19 04:05] VITALS: BP 165/79
[2019-12-19] MEDS ORDERED: VALSARTAN 80 MG TABLET PO SCH (06:00)
[2019-12-19] MEDS: PANTOPRAZOLE SODIUM 40 MG TABLET.DR PO SCH (06:03)
[2019-12-19 06:20] LABS: BASOPHILS % (AUTO) 0.2 % (0.0-2.0); EOSINOPHILS % (AUTO) 1.2 % (0.0-7.0); HEMATOCRIT 31.6 % (31.2-41.9); HEMOGLOBIN 10.8 g/dL (10.9-14.3); LYMPHOCYTES # (AUTO) 0.6 K/uL (20.0-40.0); LYMPHOCYTES % (AUTO) 17.1 % (20.5-51.5); MEAN CORPUSCULAR HEMOGLOBIN 29.5 uug (24.7-32.8); MEAN CORPUSCULAR HGB CONC 34 g/dL (32.3-35.6); MEAN CORPUSCULAR VOLUME 86.5 fL (75.5-95.3); MONOCYTES # (AUTO) 0.4 K/uL (2.0-10.0); MONOCYTES % (AUTO) 11.7 % (0.0-11.0); NEUTROPHILS # (AUTO) 2.6 K/uL (1.8-8.9); NEUTROPHILS % (AUTO) 69.8 % (38.5-71.5); PLATELET COUNT (AUTO) 178 K/uL (179-408); RED BLOOD CELL COUNT(AUTO) 3.65 MIL/uL (3.63-4.92); WHITE BLOOD COUNT (AUTO) 3.7 K/uL (3.8-11.8)
[2019-12-19 07:39] LABS: CREATININE 0.7 mg/dL (0.6-1.3); MAGNESIUM 1.8 mg/dL (1.8-2.4); PHOSPHOROUS 3.1 mg/dL (2.5-4.9); POTASSIUM 3.9 mmol/L (3.5-5.1)
[2019-12-19] MEDS: IV D5 1/2 NS 1000 ML 1,000 ML IV PRN (08:16)
[2019-12-19] MEDS: MULTIVITAMINS,THERAPEUTIC TABLET PO SCH (08:50)
[2019-12-19] MEDS: ASPIRIN 81 MG TAB.CHEW PO SCH (08:50)
[2019-12-19] MEDS: LIPASE/PROTEASE/AMYLASE 4200 UNITS CAPSULE.DR PO SCH ×3 (08:50→18:15)
[2019-12-19] MEDS: METOPROLOL SUCCINATE XL 25 MG TAB.SR.24H PO SCH (08:51)
[2019-12-19 11:57] VITALS: BP 141/70
[2019-12-19] MEDS ORDERED: PIPERACILLIN SODIUM/TAZOBACTAM 3.375 G in IV DEXTROSE 5% 50 ML IV SCH (12:00)
[2019-12-19] MEDS: PIPERACILLIN/TAZOBACTAM/D5W 3.375 G in IV DEXTROSE 5% 50 ML IV SCH ×2 (14:12→22:18)
[2019-12-19 16:22] VITALS: BP 156/76
[2019-12-19 19:58] VITALS: BP 153/70
[2019-12-19] MEDS: AMLODIPINE 5 MG TABLET PO SCH (21:01)
[2019-12-20] MEDS ORDERED: PIPERACILLIN/TAZOBACTAM/D5W 50 ML IV ONE (03:28)
[2019-12-20 04:00] VITALS: BP 142/73
[2019-12-20] MEDS: IV D5 1/2 NS 1000 ML 1,000 ML IV PRN (04:36)
[2019-12-20] MEDS: PIPERACILLIN/TAZOBACTAM/D5W 3.375 G in IV DEXTROSE 5% 50 ML IV SCH ×2 (05:03→16:12)
[2019-12-20] MEDS: PANTOPRAZOLE SODIUM 40 MG TABLET.DR PO SCH (06:26)
[2019-12-20 07:15] LABS: BASOPHILS % (AUTO) 0.4 % (0.0-2.0); BILIRUBIN,TOTAL 0.6 mg/dL (0.2-1.0); CREATININE 0.8 mg/dL (0.6-1.3); EOSINOPHILS % (AUTO) 1.2 % (0.0-7.0); HEMATOCRIT 32.4 % (31.2-41.9); LYMPHOCYTES # (AUTO) 0.7 K/uL (20.0-40.0); LYMPHOCYTES % (AUTO) 19.4 % (20.5-51.5); MAGNESIUM 1.5 mg/dL (1.8-2.4); MEAN CORPUSCULAR HEMOGLOBIN 29.4 uug (24.7-32.8); MEAN CORPUSCULAR HGB CONC 34 g/dL (32.3-35.6); MEAN CORPUSCULAR VOLUME 86.3 fL (75.5-95.3); MONOCYTES # (AUTO) 0.5 K/uL (2.0-10.0); MONOCYTES % (AUTO) 13.3 % (0.0-11.0); NEUTROPHILS # (AUTO) 2.3 K/uL (1.8-8.9); NEUTROPHILS % (AUTO) 65.7 % (38.5-71.5); PHOSPHOROUS 3.5 mg/dL (2.5-4.9); PLATELET COUNT (AUTO) 194 K/uL (179-408); POTASSIUM 3.6 mmol/L (3.5-5.1); RED BLOOD CELL COUNT(AUTO) 3.75 MIL/uL (3.63-4.92); TOTAL PROTEIN, SERUM 5.7 g/dL (6.4-8.2); WHITE BLOOD COUNT (AUTO) 3.5 K/uL (3.8-11.8)
[2019-12-20] MEDS: LIPASE/PROTEASE/AMYLASE 4200 UNITS CAPSULE.DR PO SCH ×3 (08:16→16:23)
[2019-12-20] MEDS: VALSARTAN 80 MG TABLET PO SCH (08:16)
[2019-12-20] MEDS: MULTIVITAMINS,THERAPEUTIC TABLET PO SCH (08:16)
[2019-12-20] MEDS: ASPIRIN 81 MG TAB.CHEW PO SCH (08:17)
[2019-12-20] MEDS: METOPROLOL SUCCINATE XL 25 MG TAB.SR.24H PO SCH (08:17)
[2019-12-20 12:04] VITALS: BP 135/68
[2019-12-20] MEDS: MAGNESIUM SULFATE/D5W 100 ML IV SCH ×2 (12:17→13:39)
[2019-12-20] MEDS: LEVOFLOXACIN/D5W 250 MG in PREMIX 1 EA IV SCH (15:36)
[2019-12-20 15:52] VITALS: BP 152/59
[2019-12-20] MEDS: AMLODIPINE 5 MG TABLET PO SCH (20:01)
[2019-12-20 20:30] VITALS: BP 166/78
[2019-12-20] MEDS ORDERED: LISINOPRIL 5 MG TABLET PO SCH (21:00)
[2019-12-21 05:33] VITALS: BP 140/68
[2019-12-21 06:35] LABS: BASOPHILS % (AUTO) 0.4 % (0.0-2.0); EOSINOPHILS % (AUTO) 1.3 % (0.0-7.0); HEMATOCRIT 32.9 % (31.2-41.9); HEMOGLOBIN 11.2 g/dL (10.9-14.3); LYMPHOCYTES # (AUTO) 0.7 K/uL (20.0-40.0); LYMPHOCYTES % (AUTO) 21.9 % (20.5-51.5); MEAN CORPUSCULAR HEMOGLOBIN 29.4 uug (24.7-32.8); MEAN CORPUSCULAR HGB CONC 34 g/dL (32.3-35.6); MEAN CORPUSCULAR VOLUME 86.4 fL (75.5-95.3); MONOCYTES # (AUTO) 0.4 K/uL (2.0-10.0); MONOCYTES % (AUTO) 12.5 % (0.0-11.0); NEUTROPHILS # (AUTO) 2.1 K/uL (1.8-8.9); NEUTROPHILS % (AUTO) 63.9 % (38.5-71.5); PLATELET COUNT (AUTO) 216 K/uL (179-408); RED BLOOD CELL COUNT(AUTO) 3.81 MIL/uL (3.63-4.92); WHITE BLOOD COUNT (AUTO) 3.3 K/uL (3.8-11.8)
[2019-12-21] MEDS: PANTOPRAZOLE SODIUM 40 MG TABLET.DR PO SCH (06:40)
[2019-12-21 07:07] LABS: CARBON DIOXIDE 26 mmol/L (21-32); CHLORIDE 99 mmol/L (98-107); CREATININE 0.9 mg/dL (0.6-1.3); GLUCOSE 81 mg/dL (74-106); MAGNESIUM 1.9 mg/dL (1.8-2.4); PHOSPHOROUS 3.6 mg/dL (2.5-4.9); POTASSIUM 3.3 mmol/L (3.5-5.1); UREA NITROGEN, BLOOD 10 mg/dL (7-18)
[2019-12-21] MEDS: LIPASE/PROTEASE/AMYLASE 4200 UNITS CAPSULE.DR PO SCH ×3 (08:13→17:40)
[2019-12-21] MEDS ORDERED: LISINOPRIL 5 MG TABLET PO SCH (09:00)
[2019-12-21] MEDS: ASPIRIN 81 MG TAB.CHEW PO SCH (09:25)
[2019-12-21] MEDS: MULTIVITAMINS,THERAPEUTIC TABLET PO SCH (09:25)
[2019-12-21] MEDS: VALSARTAN 80 MG TABLET PO SCH (09:25)
[2019-12-21] MEDS: METOPROLOL SUCCINATE XL 25 MG TAB.SR.24H PO SCH (09:26)
[2019-12-21 11:11] VITALS: BP 138/72
[2019-12-21] MEDS ORDERED: POTASSIUM CHLORIDE 20 MEQ TAB.PRT.SR PO ONE (13:00)
[2019-12-21] MEDS: LEVOFLOXACIN/D5W 250 MG in PREMIX 1 EA IV SCH (14:48)
[2019-12-21 15:18] VITALS: BP 131/76
[2019-12-21 20:42] VITALS: BP 154/77
[2019-12-21] MEDS: LISINOPRIL 5 MG TABLET PO SCH (22:02)
[2019-12-21] MEDS: IV D5 1/2 NS 1000 ML 1,000 ML IV PRN (23:17)
[2019-12-22 05:27] VITALS: BP 163/83
[2019-12-22] MEDS: PANTOPRAZOLE SODIUM 40 MG TABLET.DR PO SCH (07:07)
[2019-12-22] MEDS: LIPASE/PROTEASE/AMYLASE 4200 UNITS CAPSULE.DR PO SCH ×3 (08:59→17:41)
[2019-12-22] MEDS: ASPIRIN 81 MG TAB.CHEW PO SCH (10:53)
[2019-12-22] MEDS: VALSARTAN 80 MG TABLET PO SCH (10:54)
[2019-12-22] MEDS: MULTIVITAMINS,THERAPEUTIC TABLET PO SCH (10:54)
[2019-12-22] MEDS: METOPROLOL SUCCINATE XL 25 MG TAB.SR.24H PO SCH (10:55)
[2019-12-22 11:14] VITALS: BP 142/70
[2019-12-22] MEDS: LEVOFLOXACIN/D5W 250 MG in PREMIX 1 EA IV SCH (14:06)
[2019-12-22 15:14] VITALS: BP 138/78
[2019-12-22 20:31] VITALS: BP 161/73
[2019-12-22] MEDS: LISINOPRIL 5 MG TABLET PO SCH (23:11)
[2019-12-23 05:38] VITALS: BP 152/58
[2019-12-23] MEDS: PANTOPRAZOLE SODIUM 40 MG TABLET.DR PO SCH (05:49)
[2019-12-23 07:59] LABS: BASOPHILS % (AUTO) 0.3 % (0.0-2.0); EOSINOPHILS % (AUTO) 0.9 % (0.0-7.0); HEMATOCRIT 30.9 % (31.2-41.9); HEMOGLOBIN 10.5 g/dL (10.9-14.3); LYMPHOCYTES # (AUTO) 0.9 K/uL (20.0-40.0); LYMPHOCYTES % (AUTO) 29.5 % (20.5-51.5); MEAN CORPUSCULAR HEMOGLOBIN 29.5 uug (24.7-32.8); MEAN CORPUSCULAR HGB CONC 34 g/dL (32.3-35.6); MEAN CORPUSCULAR VOLUME 86.3 fL (75.5-95.3); MONOCYTES # (AUTO) 0.3 K/uL (2.0-10.0); MONOCYTES % (AUTO) 10.1 % (0.0-11.0); NEUTROPHILS # (AUTO) 1.9 K/uL (1.8-8.9); NEUTROPHILS % (AUTO) 59.2 % (38.5-71.5); PLATELET COUNT (AUTO) 245 K/uL (179-408); RED BLOOD CELL COUNT(AUTO) 3.58 MIL/uL (3.63-4.92); WHITE BLOOD COUNT (AUTO) 3.1 K/uL (3.8-11.8)
[2019-12-23 08:00] LABS: CREATININE 0.8 mg/dL (0.6-1.3); MAGNESIUM 1.5 mg/dL (1.8-2.4); PHOSPHOROUS 3.2 mg/dL (2.5-4.9); POTASSIUM 3.7 mmol/L (3.5-5.1)
[2019-12-23] MEDS: LIPASE/PROTEASE/AMYLASE 4200 UNITS CAPSULE.DR PO SCH ×3 (09:29→17:42)
[2019-12-23] MEDS: MULTIVITAMINS,THERAPEUTIC TABLET PO SCH (09:29)
[2019-12-23] MEDS: MAGNESIUM SULFATE/D5W 100 ML IV SCH ×2 (09:30→12:05)
[2019-12-23] MEDS: ASPIRIN 81 MG TAB.CHEW PO SCH (09:30)
[2019-12-23] MEDS: VALSARTAN 80 MG TABLET PO SCH (09:43)
[2019-12-23] MEDS: METOPROLOL SUCCINATE XL 25 MG TAB.SR.24H PO SCH (09:44)
[2019-12-23 11:00] VITALS: BP 150/64
[2019-12-23] MEDS: IV D5 1/2 NS 1000 ML 1,000 ML IV PRN (14:12)
[2019-12-23] MEDS: LEVOFLOXACIN 250 MG TABLET PO SCH (14:12)
[2019-12-23] MEDS ORDERED: LISI-607 PO (14:40)
[2019-12-23] MEDS ORDERED: VALS80TA2 PO (14:40)
[2019-12-23 15:44] VITALS: BP 165/76
[2019-12-23] MEDS: LISINOPRIL 5 MG TABLET PO SCH (20:00)
[2019-12-23 20:12] VITALS: BP 169/86
[2019-12-23 20:45] VITALS: BP 190/88
[2019-12-23 21:45] VITALS: BP 180/87
[2019-12-23] MEDS: hydrALAZINE HCL 25 MG TABLET PO PRN (22:11)
[2019-12-24 00:12] VITALS: BP 141/78
[2019-12-24 05:17] VITALS: BP 162/70
[2019-12-24] MEDS: PANTOPRAZOLE SODIUM 40 MG TABLET.DR PO SCH (06:26)
[2019-12-24] MEDS: LIPASE/PROTEASE/AMYLASE 4200 UNITS CAPSULE.DR PO SCH ×2 (09:07→12:40)
[2019-12-24] MEDS: MULTIVITAMINS,THERAPEUTIC TABLET PO SCH (09:08)
[2019-12-24] MEDS: ASPIRIN 81 MG TAB.CHEW PO SCH (09:08)
[2019-12-24] MEDS: VALSARTAN 80 MG TABLET PO SCH (09:08)
[2019-12-24] MEDS: METOPROLOL SUCCINATE XL 25 MG TAB.SR.24H PO SCH (09:09)
[2019-12-24] MEDS ORDERED: CLONIDINE HCL 0.1 MG TABLET PO ONE (10:30)
[2019-12-24 11:54] VITALS: BP 144/78
[2019-12-24] MEDS: LEVOFLOXACIN 250 MG TABLET PO SCH (15:41)
[2019-12-24] MEDS: hydrALAZINE HCL 25 MG TABLET PO PRN (15:45)
[2019-12-24 15:56] VITALS: BP 141/68
== END 2019-12-24 18:15 | disposition home health service (06) | DRG 438 ==
LOC: ER 16:35 → TELE3 20:40 → MEDSURG3 12-15 10:02
PROVIDERS: ADMIT Internal Medicine; ATTEND Internal Medicine
DX: K85.90 Acute pancreatitis without necrosis or infection, unspecified (principal); E43 Unspecified severe protein-calorie malnutrition; G92 Toxic encephalopathy; I50.32 Chronic diastolic (congestive) heart failure; N39.0 Urinary tract infection, site not specified; Z16.12 Extended spectrum beta lactamase (ESBL) resistance; Z16.19 Resistance to other specified beta lactam antibiotics; D68.59 Other primary thrombophilia; I48.92 Unspecified atrial flutter; M48.55XA Collapsed vertebra, not elsewhere classified, thoracolumbar region, initial encounter for fracture; E27.40 Unspecified adrenocortical insufficiency; I44.4 Left anterior fascicular block; M06.9 Rheumatoid arthritis, unspecified; I11.0 Hypertensive heart disease with heart failure; G90.8 Other disorders of autonomic nervous system; E87.6 Hypokalemia; B96.20 Unspecified Escherichia coli [E. coli] as the cause of diseases classified elsewhere; K86.1 Other chronic pancreatitis; E86.0 Dehydration; E83.42 Hypomagnesemia; Z74.09 Other reduced mobility; Z91.11 Patient's noncompliance with dietary regimen; Z96.643 Presence of artificial hip joint, bilateral; Z85.038 Personal history of other malignant neoplasm of large intestine; K57.30 Diverticulosis of large intestine without perforation or abscess without bleeding; K64.9 Unspecified hemorrhoids; I70.8 Atherosclerosis of other arteries; I70.0 Atherosclerosis of aorta; I25.10 Atherosclerotic heart disease of native coronary artery without angina pectoris; K31.89 Other diseases of stomach and duodenum; M41.9 Scoliosis, unspecified; Z86.73 Personal history of transient ischemic attack (TIA), and cerebral infarction without residual deficits; Z90.49 Acquired absence of other specified parts of digestive tract; G31.84 Mild cognitive impairment of uncertain or unknown etiology; K82.8 Other specified diseases of gallbladder; E11.9 Type 2 diabetes mellitus without complications
CPT/HCPCS: 36415; 70030-TC; 70450; 71045; 83690; 83735; 84100; 84478; 85025; 85730; 87077; 87086; 93005; A4663; C1758; C9113; G0378; J0696; J1956; J2270; J2405; J2543; J3475; J3490; J7042; J7060